=== PATIENT | male | born 1955 | race Caucasian/White ===

== ENCOUNTER 2017-12-29 11:52 | Inpatient (IN) ==
[2017-12-29] MEDS ORDERED: Isovue-370 500 ML INFUS..BTL IV ONE (12:06)
--- NOTE | 2017-12-29 12:09 | Emergency Department Note ---
Disposition Clinical Impression: New onset a-fib, Atrial fibrillation with RVR, Pleural effusion, Elevated troponin, Elevated brain natriuretic peptide (BNP) level, Elevated d-dimer Disposition: Admitted As Inpatient Condition: Good Referrals: RASHID GONZALEZ [Other] [facility]Primary Care Provider[facility] - Time of Disposition: 15:08 SOB HPI - General Chief Complaint: ED Shortness of Breath/Dyspnea Stated Complaint: new afib, ryan Time Seen by Provider: 12/29/17 11:59 Source: EMS Mode of arrival: ambulatory Limitations: no limitations Nursing Notes Reviewed: Yes Vital Signs Reviewed: Yes - History of Present Illness Patient is a 62-year-old male with past medical history of COPD, hypertension, tobacco use, COPD. He presents today from the [facility] due to transfer due to elevated troponin level, new onset A. fib RVR, elevated d- dimer. According to EMS, patient was given 5 mg of Cardizem bolus and aspirin 325. He is also given a breathing treatment today. Patient states that he has been having shortness of breath and lower showed a swelling for the past month, feels different from his usual COPD exacerbations. He has had some increased cough and mild phlegm production but denies any fevers, nausea, vomiting, diarrhea, abdominal pain. Denies any known history of A. fib or CHF. Denies any overt chest discomfort. States that he went to the [facility] urgent care today due to continued shortness of breath despite home treatments of albuterol for COPD. Denies ever feeling any chest discomfort or palpitations. No blood thinners currently. - Related Data Home Medications Medication Instructions Recorded Confirmed Acetaminophen [Tylenol] 650 mg PO Q6HR PRN 12/29/17 12/29/17 Albuterol Neb [Proventil Neb] 2.5 mg IH TID PRN 12/29/17 12/29/17 Albuterol Sulfate [Ventolin Hfa] 2 puff IH Q6H PRN 12/29/17 12/29/17 Cholecalciferol (D-3) [Vitamin D] 1,000 unit PO DAILY 12/29/17 12/29/17 Losartan [Cozaar] 25 mg PO DAILY 12/29/17 12/29/17 Omeprazole [PriLOSEC] 20 mg PO BIDAC 12/29/17 12/29/17 Pravastatin Sodium [Pravachol] 40 mg PO QPM 12/29/17 12/29/17 Ranitidine HCl [Acid Nursing Program Manager] 150 mg PO BID 12/29/17 12/29/17 hydroCHLOROthiazide 25 mg PO DAILY 12/29/17 12/29/17 [Hydrochlorothiazide] Allergies Allergy/AdvReac Type Severity Reaction Status Date / Time No Known Allergies Allergy Verified 12/29/17 13:28 All systems ED: reviewed and negative except as stated. Constitutional: Denies: fever Cardiovascular: Denies: chest pain Respiratory: Reports: cough, dyspnea, sputum production. Denies: wheezes Gastrointestinal: Denies: abdominal pain, nausea, vomiting, diarrhea Genitourinary: Denies: urgency, dysuria Integumentary: Denies: rash Neurological: Denies: headache, weakness, numbness, paresthesias Past Medical History - Past Medical History Attestation: Yes The following information was validated with the patient. Source: patient Medical history: Reports: COPD, hypertension Psychiatric history: Reports: no psych history - Social History Smoking Status: Current every day smoker Alcohol use: Reports: occasionally Drug use: Reports: none Physical Exam - General Limitations: no limitations - Head Head exam: atraumatic, normocephalic, normal inspection - Eye Eye exam: Present: normal appearance, PERRL, EOMI - ENT ENT exam: normal exam, normal oropharynx, mucous membranes moist - Neck Neck exam: Present: normal inspection, full ROM, trachea midline - Chest Chest inspection: Present: normal inspection, symmetric chest wall rise - Respiratory Respiratory exam: Present: wheezes (wheezes throughout all lung harvey) - Cardiovascular Cardiovascular exam: Present: irregular rhythm - Abdominal Exam Abdominal exam: Present: soft, Non-Tender. Absent: tenderness, distention, guarding, rebound, rigidity - Extremities Exam Extremities exam: Present: full ROM, pedal edema (Moderate pitting edema bilaterally, no calf tenderness). Absent: tenderness - Neurological Exam Neurological exam: Present: alert, oriented X3 - Psychiatric Psychiatric exam: Present: normal affect, normal mood - Skin Skin exam: Present: warm, dry, intact, normal color Course Course Narrative: Patient has wheezes throughout, received a breathing treatment prior to arrival. Did not receive steroids. We will give the patient Solu-Medrol. Currently satting mid 90s on room air. Heart rate currently in the 100s to 120s , A. fib. Blood pressure stable. Patient had majority workup performed at the [facility]. His troponin was 2.56, denies any chest discomfort. Did receive aspirin. D-dimer 1.7 which is above [place] cutoff of 0.53. Creatinine was 0.89, GFR was greater than 60. Potassium 3.1. We will replace here with oral potassium. Otherwise, no other major electrolyte abnormality. No chest imaging sent over with patient. We will perform CTA of the chest to assess for PE due to the elevated d-dimer and a tachycardia. We will also assess for pneumonia. We will place patient on Cardizem drip. Patient has no active chest discomfort at this time. EKG shows A. fib, rate 122, no acute ST elevation or depression. 13:39 CTA shows no evidence of any PE. There is evidence of pleural effusion bilaterally, worse in the right, no pneumonia. Findings are suggestive of possible acute CHF. Patient does have an elevated troponin level, no acute ST elevation or depression, no current chest discomfort. We will consult cardiology to discuss case. Patient has already received aspirin. Cardizem drip started. HR 110, BP stable. We will admit to the hospitalist for further care at new onset A. fib RVR. 13:[address] Fisher, relay man, discussed case, presentation, setting of new onset A. fib RVR with no anticoagulation and elevated troponin level. He agreed with starting heparin drip at this time. We will place consult. Patient has no contraindications to anticoagulation at this time, no recent urinary, GI bleeding, no recent head bleed. He does have a history of splenic lac but that was 5 years ago. Chest CTA 12/29/17 12:06 IMPRESSION: 1. No acute pulmonary emboli. 2. Cardiomegaly and bilateral pleural effusions with findings that may represent developing acute congestive heart failure. 3. No lobar pneumonia. D/ / 12/29/2017 13:34:54 Yosi Quevedo MD / Cheyenne Garner Interpreting Provider: Yosi Quevedo MD Vital Signs Temperature 98.3 F 12/29/17 11:54 Pulse Rate 132 12/29/17 11:54 Respiratory Rate 16 12/29/17 11:54 Blood Pressure 136/103 12/29/17 11:54 O2 Sat by Pulse Oximetry 94 12/29/17 11:54 Temperature 98.3 F 12/29/17 11:54 Pulse Rate 126 12/29/17 14:08 Respiratory Rate 20 12/29/17 14:08 Blood Pressure 117/95 12/29/17 14:08 O2 Sat by Pulse Oximetry 97 12/29/17 14:15 Oxygen Delivery Oxygen Delivery Nasal Cannula Shortness of Breath/Dyspnea - [facility] Narrative Medical decision making narrative: Patient has wheezes throughout, received a breathing treatment prior to arrival. Did not receive steroids. We will give the patient Solu-Medrol. Currently satting mid 90s on room air. Heart rate currently in the 100s to 120s , A. fib. Blood pressure stable. Patient had majority workup performed at the [facility]. His troponin was 2.56, denies any chest discomfort. Did receive aspirin. D-dimer 1.7 which is above [place] cutoff of 0.53. Creatinine was 0.89, GFR was greater than 60. Potassium 3.1. We will replace here with oral potassium. Otherwise, no other major electrolyte abnormality. No chest imaging sent over with patient. We will perform CTA of the chest to assess for PE due to the elevated d-dimer and a tachycardia. We will also assess for pneumonia. We will place patient on Cardizem drip. Patient has no active chest discomfort at this time. EKG shows A. fib, rate 122, no acute ST elevation or depression. 13:39 CTA shows no evidence of any PE. There is evidence of pleural effusion bilaterally, worse in the right, no pneumonia. Findings are suggestive of possible acute CHF. Patient does have an elevated troponin level, no acute ST elevation or depression, no current chest discomfort. We will consult cardiology to discuss case. Patient has already received aspirin. Cardizem drip started. HR 110, BP stable. We will admit to the hospitalist for further care at new onset A. fib RVR. 13:[address] Fisher, relay man, discussed case, presentation, setting of new onset A. fib RVR with no anticoagulation and elevated troponin level. He agreed with starting heparin drip at this time. We will place consult. Patient has no contraindications to anticoagulation at this time, no recent urinary, GI bleeding, no recent head bleed. He does have a history of splenic lac but that was 5 years ago. - Medical Records Medical records reviewed: Yes I reviewed the patient's medical records. - Lab Data Lab results reviewed: Yes I reviewed the patient's lab results. Lab Results 12/29/17 Range/Units 14:04 PT 13.6 H (9.4-12.1) Seconds INR 1.2 APTT 26.8 (26.0-36.0) Seconds Heparin Anti-Xa, Unfract 0.04 L (0.30-0.70) IU/mL - Radiology Data Radiology results reviewed: Yes I reviewed the patient's radiology results. - EKG Data EKG attestation: Yes I reviewed and interpreted this EKG. EKG results narrative: 12/29/2017 at 11:55. A. fib. Rate 122. QRS 170. QTC 393. Normal axis. No acute ST elevation or depression. S.B.AJulissa - Lizzy.Dhiraj Situation: Demographics, MOA Background: Presenting Complaint, Relevant PMH, Meds, & Allergies Assessment: Vital Signs, Course and respsone to treatment, Exam Concerns, Patient/Family Expectation, Pertinant Lab Results Recommendation: Barrier(s) to disposition, Recommendation based on pending studies, treatments, or consults S.BMirza Report Given to: Dr. Tanisha Martinez Repor Time: 15:08
[2017-12-29] MEDS ORDERED: methylPREDNISolone 125 MG/2 ML VIAL IVP ONE (12:20)
--- NOTE | 2017-12-29 12:50 | Emergency Department Note ---
Disposition Clinical Impression: New onset a-fib, Atrial fibrillation with RVR, Pleural effusion, Elevated troponin, Elevated brain natriuretic peptide (BNP) level, Elevated d-dimer Disposition: Admitted As Inpatient Condition: Good General Adult HPI - General Chief complaint: ED Shortness of Breath/Dyspnea Stated complaint: new afib, ryan Time Seen by Provider: 12/29/17 11:59 Source: EMS Mode of arrival: ambulatory Limitations: no limitations - History of Present Illness Pain Scale: 0 - Related Data Home Medications Medication Instructions Recorded Confirmed Acetaminophen [Tylenol] 650 mg PO Q6HR PRN 12/29/17 12/29/17 Albuterol Neb [Proventil Neb] 2.5 mg IH TID PRN 12/29/17 12/29/17 Albuterol Sulfate [Ventolin Hfa] 2 puff IH Q6H PRN 12/29/17 12/29/17 Cholecalciferol (D-3) [Vitamin D] 1,000 unit PO DAILY 12/29/17 12/29/17 Losartan [Cozaar] 25 mg PO DAILY 12/29/17 12/29/17 Omeprazole [PriLOSEC] 20 mg PO BIDAC 12/29/17 12/29/17 Pravastatin Sodium [Pravachol] 40 mg PO QPM 12/29/17 12/29/17 Ranitidine HCl [Acid Cloth Reeler] 150 mg PO BID 12/29/17 12/29/17 hydroCHLOROthiazide 25 mg PO DAILY 12/29/17 12/29/17 [Hydrochlorothiazide] Allergies Allergy/AdvReac Type Severity Reaction Status Date / Time No Known Allergies Allergy Verified 12/29/17 13:28 Constitutional: Denies: fever Cardiovascular: Denies: chest pain Respiratory: Reports: cough, dyspnea, sputum production. Denies: wheezes Gastrointestinal: Denies: abdominal pain, nausea, vomiting, diarrhea Genitourinary: Denies: urgency, dysuria Integumentary: Denies: rash Neurological: Denies: headache, weakness, numbness, paresthesias Past Medical History - Past Medical History Medical history: Reports: COPD, hypertension Psychiatric history: Reports: no psych history - Social History Smoking Status: Current every day smoker Alcohol use: Reports: occasionally Drug use: Reports: none Physical Exam - General Limitations: no limitations Course Vital Signs Temperature 98.3 F 12/29/17 11:54 Pulse Rate 132 12/29/17 11:54 Respiratory Rate 16 12/29/17 11:54 Blood Pressure 136/103 12/29/17 11:54 O2 Sat by Pulse Oximetry 94 12/29/17 11:54 Temperature 98.3 F 12/29/17 11:54 Pulse Rate 126 12/29/17 14:08 Respiratory Rate 20 12/29/17 14:08 Blood Pressure 117/95 12/29/17 14:08 O2 Sat by Pulse Oximetry 97 12/29/17 14:15 Oxygen Delivery Oxygen Delivery Nasal Cannula Medical Decision Making - Lab Data Lab Results 12/29/17 Range/Units 14:04 PT 13.6 H (9.4-12.1) Seconds INR 1.2 APTT 26.8 (26.0-36.0) Seconds Heparin Anti-Xa, Unfract 0.04 L (0.30-0.70) IU/mL Critical Care Time Critical Care Time: Yes Total Critical Care Time: 35 Attestation: Critical care performed: Time is exclusive of separately billable procedures. Time includes: direct patient care, patient reassessment, coordination of patient care, interpretation of data (laboratory data, radiology data, and respiratory data), review of patient's medical records, medical consultation and documentation of patient care. Procedures included in critical care time: Procedures excluded from critical care time: Attestation Statement - Attestation Attestation: I examined this patient and my medical decision-making was reviewed with the Resident Physician. I agree with the documented findings, disposition and treatment plan as described except to the extent set forth below. Patient presents to the ED as a transfer from the [facility]. Patient presented to the emergency department with a chief complaint of leg swelling and shortness of breath. He was found to be in new onset A. fib. He had an elevated troponin suicidal for further evaluation. On examination he is laying in bed sleeping but easily arousable. Lungs with expiratory wheezing. He has bilateral pitting edema. His heart tachycardia and irregularly irregular. Plan. Rate control. CTA chest is he had an elevated d-dimer. EKG is A. fib with RVR 122. He has some anterolateral T-wave inversions. There is no old for comparison. Cardiology has been consult. Heparin drip started. Tolerating Cardizem at this time. Admitted to medicine.
[2017-12-29] MEDS ORDERED: *HR* Heparin 5,000 UNIT/ML VIAL IVP ONE (13:50)
[2017-12-29] MEDS ORDERED: *HR* Heparin 5,000 UNIT/ML VIAL IVP PRN ×2 (13:50)
[2017-12-29] MEDS ORDERED: Heparin 25,000 UNIT/500 ML D5W 25,000 UNIT/500 ML BAG IVC SCH (14:00)
[2017-12-29 14:26] LABS: Heparin anti-factor XA UFH 0.04 IU/mL (0.30-0.70); INR 1.2; Prothrombin Time 13.6 Seconds (9.4-12.1)
[2017-12-29 14:29] LABS: Activated Partial Thrombo Time 26.8 Seconds (26.0-36.0)
[2017-12-29] MEDS ORDERED: 0.9 % Sodium Chloride 500 ML IVC ONE (15:05)
[2017-12-29] MEDS ORDERED: Levalbuterol Neb 1.25 MG/3 ML IH PRN (15:29)
[2017-12-29] MEDS ORDERED: 0.9 % Sodium Chloride 1,000 ML IVC SCH (15:30)
--- NOTE | 2017-12-29 16:13 | Internal Med History&Physical ---
Date of Encounter: 12/29/17 Time of Encounter: 16:08 Internal Medicine - H&P: HPI Chief complaint: SOB History of present illness: Mr. Arroyo is a 62 year old male with history of COPD not on home oxygen presented to the ED from the [facility] with complaint of shortness of breath. As patient he went to the [facility] today complaining of bilateral leg swelling and shortness of breath especially on ambulation. He had ran out of his inhalers and has not used them for 2 days so he did not get refill on his medications. While in the [place] swelling of the lower extremities was noticed and he was found to be tachycardic. in the ED and admission labs were done which showed troponin of 2.56 and elevated d-dimer of 1.7 which is above the cutoff at the [facility] (0.53). He was also found to be hypokalemic at 3.1. So he was transferred to [facility] ED for further workup. While in the ED the labs [place] was reviewed and CT angiogram of the chest was ordered to rule out pulmonary embolism (results below). EKG in the ED showed A. fib with RVR rate of [address] T changes. CTA results showed bilateral pleural effusion. Cardiology consulted by the ED physician. Dr. Fisher recommended heparin drip and aspirin 325 mg which she was given originally at the [place]. Patient reports that his bilateral leg swelling started about a month ago and progressively worsened. He denies prolonged immobilization, lower extremity swelling proves with elevation. No pain associated with the swelling he denies any calf tenderness. His leg swelling is also associated with worsening shortness of breath however he reports that his shortness of breath is aggravated only on ambulation. Denies orthopnea or PND. He denies fever, chills, N/V/D, head ache, vision changes, hematemeisis, hematochezia, hemoptysis, melena, blood per rectum, falls. he reports that he is independent with his ADLs. Past Med Surg Social Fam HX - Past Medical History Medical history: COPD, hypertension Psychiatric history: no psych history - Social History Smoking Status: Current every day smoker Alcohol use: occasionally Drug use: none Internal Medicine - H&P: Meds Acetaminophen [Tylenol] 650 mg PO Q6HR PRN 12/29/17 [History] Albuterol Neb [Proventil Neb] 2.5 mg IH TID PRN 12/29/17 [History] Albuterol Sulfate [Ventolin Hfa] 2 puff IH Q6H PRN 12/29/17 [History] Cholecalciferol (D-3) [Vitamin D] 1,000 unit PO DAILY 12/29/17 [History] Losartan [Cozaar] 25 mg PO DAILY 12/29/17 [History] Omeprazole [PriLOSEC] 20 mg PO BIDAC 12/29/17 [History] Pravastatin Sodium [Pravachol] 40 mg PO QPM 12/29/17 [History] Ranitidine HCl [Acid Microwave Technician] 150 mg PO BID 12/29/17 [History] hydroCHLOROthiazide [Hydrochlorothiazide] 25 mg PO DAILY 12/29/17 [History] 3 Allergy/AdvReac Type Severity Reaction Status Date / Time No Known Allergies Allergy Verified 12/29/17 13:28 All Systems PM: review of systems was performed and is negative for pertinent findings except as documented above in the HPI. - Constitutional Vitals: Temp Pulse Resp BP Pulse Ox 98.3 F 126 20 92/77 93 12/29/17 11:54 12/29/17 15:20 12/29/17 15:20 12/29/17 15:20 12/29/17 15:20 - Other Additional findings: General: Patient is alert, oriented, no acute distress, Head: atraumatic, normocephalic, Eye: normal appearance, PERRL, no scleral icterus, no conjunctival injection, ENT: mucous membranes moist, normal external ear exam, poor dentition Neck: normal inspection, trachea midline, full ROM, +JVD Chest: normal inspection, symmetric chest rise Respiratory: speaks in full sentences, no accessory muscle use, diffuse crackles in the posterior lung feilds, diffuse wheezing in the posterior lung harvey. Cardiovascular: irregularly irregular . s1 and s2 No clicks, rubs, gallops, or murmors. Abdomen: Bowel sounds present normoactive x-4 quadrants. Abdomen is soft, nondistended. Epigastric tenderness. No guarding or rebound. No organomegaly noted, obese musculoskeletal: Spontaneously moving all extremities. +2 edema of the lower extremities is no calf tenderness Skin: warm, dry, intact. Neuro: Alert and oriented x4. Sensation light touch intact. Cranial nerves 2- 12 is intact. Not aphasic, Psych: Patient's affect is normal Internal Med - H&P Results - Labs CBC & Chem 7: 12/29/17 16:22 12/29/17 16:22 - EKG Data -: EKG Interpreted by Myself (Afib with RVR, incomplete RBBB, ) - Assessment and plan (1) Acute systolic CHF (congestive heart failure) Current Visit: Yes Status: Acute Assessment and plan: labs from [place] showed elevated troponin 2.5 and BNP as per ED physician along with D-Dimer CTA done in the ED - 1. No acute pulmonary emboli. 2. Cardiomegaly and bilateral pleural effusions with findings that may represent developing acute congestive heart failure. 3. No lobar pneumonia. will get TTE STAT will give him one dose of lasix 40 mg IVP- he is overloaded - will monitor BP closely strict intake and out put daily weight currently on cardizem drip- has wheezing - will refrain from using BB fluid restricted diet <1L DVT study of the lower extremities (2) Atrial fibrillation with RVR Current Visit: Yes Status: Acute Assessment and plan: CTA rule out PE, ? secondary to acute CHF vs COPD exacerbation on cardizem drip - rate in the low 100s first detected Afib cardiology was consulted in the ED now on heparin drip TSH Echocardiogram cardiology on board (3) Elevated troponin Current Visit: Yes Status: Acute Assessment and plan: most likely secondary to demand vs supply mismatch ( he has Afib with RVR and acute CHF) will follow serial troponins and ekgs Q6H was loaded with ASA at [place] on heparin drip cardiology on board recommendations followed in the ED TTE on cardizem drip - will refrain BB for now as he is actively wheezing. A1c, lipid panel in the AM (4) COPD exacerbation Current Visit: Yes Status: Acute Assessment and plan: actively wheezing on exam, has ran out of his inhalers received solumedrol in the ED will continue him on 40 mg Q6H will give him Duo-neb Q4H will start him on levaquin urine antigens sputum cx will send blood cx ABG stat oxygen via nasal cannula kep stats >92% (5) HTN (hypertension) Current Visit: Yes Status: Acute Assessment and plan: currently border line hypotensive will hold off of anti hypertensives - recieved onse dose of lasix 40 mg IVP once as he is fluid overloaded vitals as per protocol Qualifiers: Hypertension type: essential hypertension Qualified Code(s): I10 - Essential (primary) hypertension (6) DVT prophylaxis Current Visit: Yes Status: Acute Assessment and plan: on heparin drip - Time Spent With Patient Total time spent is greater than 50% in coordination of care (as documented) at patient's floor/unit and/or counseling patient:
[2017-12-29] MEDS ORDERED: Furosemide 40 MG/4 ML VIAL IVP ONE (16:42)
[2017-12-29] MEDS: Ipratropium Neb 0.5 MG NEBULIZER IH SCH ×2 (16:51→22:13)
[2017-12-29] MEDS: Levalbuterol Neb 1.25 MG/3 ML IH SCH ×2 (16:51→22:13)
[2017-12-29 16:52] LABS: Basophils % 0.1 %; Immature Granulocytes % 0.9 % (0-4); Lymphocytes # 0.5 K/mcL (0.6-4.6); Lymphocytes % 4.5 %; Mean Corpuscular HGB Conc 32.6 g/dL (31.6-35.5); Mean Corpuscular Hemoglobin 31.1 pg (28.0-33.3); Mean Corpuscular Volume 95.6 fL (83.0-100.0); Mean Platelet Volume 10.1 fL (9.4-12.4); Monocytes # 0.2 K/mcL (0.0-1.3); Monocytes % 2.2 %; Neutrophils # 9.4 K/mcL (1.6-8.9); Nucleated Red Blood Cells 0.2 /100 WBC (0); Platelet Count 409 K/mcL (140-400); Red Cell Distribution Width 14.6 % (11.5-14.5); Segmented Neutrophils % 92.3 %
[2017-12-29 17:07] LABS: BUN/Creatinine Ratio 25 (6-26); Blood Urea Nitrogen 23 mg/dL (8-23); Calcium 8.9 mg/dL (8.6-10.3); Carbon Dioxide 23 mEq/L (23-29); Chloride 100 mEq/L (98-107); Glucose 274 mg/dL (70-105); Magnesium 1.8 mg/dL (1.6-2.6); Osmolality,Calculated 295 (280-300); Phosphorous 3.6 mg/dL (2.7-4.5); Potassium 3.7 mEq/L (3.5-5.1); Sodium 136 mEq/L (136-145); eGFR For Non-African Americans > 60 (> 60)
[2017-12-29 17:20] LABS: Thyroid Stimulating Hormone 0.465 mcIU/mL (0.340-5.600)
[2017-12-29 17:20] LABS: Bilirubin,Urine Negative (Negative); Blood,Urine Negative (Negative); Clarity,Urine Clear (Clear); Color,Urine Yellow (Yellow); Glucose,Urine (UA) 500 mg/dL (Normal); Ketones,Urine Negative (Negative); Leukocyte Esterase,Urine Negative (Negative); Nitrite,Urine Negative (Negative); Protein,Urine Negative (Neg-Trace); Urobilinogen,Urine Normal (Normal)
[2017-12-29 17:24] LABS: Troponin I 1.16 ng/mL (< 0.04)
[2017-12-29] MEDS: Famotidine 20 MG TABLET PO SCH (18:02)
[2017-12-29] MEDS: Levofloxacin 500 MG/100 ML 500 MG/100 ML BAG IVPB SCH (18:02)
[2017-12-29] MEDS: Melatonin 3 MG TABLET PO PRN (23:09)
[2017-12-29] MEDS: MethylPREDNISolone 40 MG/ML VIAL IVP SCH (23:09)
[2017-12-30] MEDS: Acetaminophen 325 MG TABLET PO PRN ×2 (00:19→17:01)
[2017-12-30] MEDS: Ipratropium Neb 0.5 MG NEBULIZER IH SCH ×4 (03:39→21:56)
[2017-12-30] MEDS: Levalbuterol Neb 1.25 MG/3 ML IH SCH ×4 (03:39→21:58)
[2017-12-30 03:59] LABS: Hematocrit 41.8 % (37.5-50.1); Mean Corpuscular HGB Conc 33.5 g/dL (31.6-35.5); Mean Corpuscular Hemoglobin 31.3 pg (28.0-33.3); Mean Corpuscular Volume 93.5 fL (83.0-100.0); Mean Platelet Volume 10.2 fL (9.4-12.4); Platelet Count 368 K/mcL (140-400); Red Blood Count 4.47 M/mcL (4.19-5.50)
[2017-12-30 04:10] LABS: BUN/Creatinine Ratio 26 (6-26); Blood Urea Nitrogen 22 mg/dL (8-23); Calcium 8.6 mg/dL (8.6-10.3); Carbon Dioxide 27 mEq/L (23-29); Chloride 100 mEq/L (98-107); Chol/HDL Ratio 4.3 (0-4.9); Cholesterol 147 mg/dL (< 200); Glucose 189 mg/dL (70-105); HDL Cholesterol 34 mg/dL (40-59); LDL Cholesterol,Calculated 100 mg/dL (0-99); Osmolality,Calculated 292 (280-300); Potassium 3.2 mEq/L (3.5-5.1); Sodium 137 mEq/L (136-145); Triglycerides 63 mg/dL (< 150); eGFR For Non-African Americans > 60 (> 60)
[2017-12-30] MEDS: Cholecalciferol (D-3) 1,000 UNIT TABLET PO SCH (08:17)
[2017-12-30] MEDS: Famotidine 20 MG TABLET PO SCH ×2 (08:17→17:06)
[2017-12-30] MEDS: MethylPREDNISolone 40 MG/ML VIAL IVP SCH ×2 (08:17→16:52)
[2017-12-30 08:32] LABS: Estimated Average Glucose 148 mg/dl; Hemoglobin A1C 6.8 %
--- NOTE | 2017-12-30 09:06 | Cardiology Consult Note ---
Date of Encounter: 12/30/17 Time of Encounter: 08:30 Assessment and Plan (1) NSTEMI (non-ST elevated myocardial infarction) Current Visit: Yes Status: Acute Peak troponin 2.56 (at [facility]) with downward trend. Dynamic ECG changes noted, remains chest pain free. No prior CV records available, patient denies prior ischemic evaluation. Continue heparin gtt, start asa. Will increase statin, start BB. Echo pending. Cardiac rehab consult. Recommend C with possible PCI; alternatives, risks, and benefits discussed, he is agreeable to proceed. (2) CHF (congestive heart failure) Current Visit: Yes Status: Acute Patient presents with CHF symptoms--etiology and chronicity unclear. No prior hx. Patient did report normal echo in April 2017. Worsening symptoms over the past 2-3 weeks. BNP 1453. Volume overload upon exam. Chest CTA: negative for acute PE, cardiomegaly, bilateral pleural effusions may represent developing acute CHF. Echo pending, suspect LVEF may be reduced. Will start Toprol XL; consider addition of ACEi upon discharge if BP will tolerate. Start IV lasix, 40 mg BID. Cumulative I&O: -1369 mL (after 1 dose of IV lasix). Strict I&O's, daily weights, Na/fluid restricted diet. Qualifiers: Heart failure type: unspecified Heart failure chronicity: acute Qualified Code(s): I50.9 - Heart failure, unspecified (3) Atrial fibrillation with RVR Current Visit: Yes Status: Acute New diagnosis of atrial fibrillation with RVR; chronicity unclear. Patient reports ongoing symptoms for the past 3 weeks. ECG upon arrival to ED shows afib with RVR with rate 122 BPM, started on IV cardizem gtt. 12 hour tele: avg HR=92. TSH normal. Currently on IV cardizem gtt. Due to concern of CHF, will start BB over CCB for now. Presently, CHA2Ds Vasc= 1 (HTN). Echo pending, will require further cardiac testing. Suspect may need half-way AC. Continue heparin gtt for now. Discussion w patient/family: The assessment and plan as outlined above was discussed with the patient and/or family members who expressed understanding and agreement. All questions were answered. Thank you for involving us in the care of your patient. Please call with any questions. The patient will be discussed and reviewed with Dr. Fisher; changes to be made accordingly. History of Present Illness Consult date: 12/30/17 Requesting physician: Tanisha Garcia Consult reason: Afib with RVR; elevated troponin Chief complaint: Shortness of breath; LE edema History of present illness: Mr. Arroyo is a 62 year old male with PMHx significant of GERD, COPD who presented as a transfer from the [facility] due to concern of NSTEMI--troponin at the [facility] was 2.56. In addition, proBNP was 6289. He was found to be in atrial fibrillation with RVR. Mr. Arroyo reports 2-3 week history of worsening bilateral lower extremity edema associated with increase in abdominal girth and shortness of breath. Also reports PND/orthopnea and palpitations. He reports he tries to stay active and push-mows several lawns each week, recently, he has had to frequently sit down and rest due to shortness of breath with associated chest heaviness. Upon exam, he is chest pain free. He reports his shortness of breath and edema have significantly improved overnight after given IV lasix. Orthopnea has resolved. He reports ultrasound of his heart in April of last year, was told "heart was strong." Past Med Surg Social Fam HX - Past Medical History Attestation: Yes The following information was validated with the patient. Source: patient Medical history: COPD, GERD, hypertension Additional medical history: reports splenic laceration d/t trauma 5 years ago. Psychiatric history: no psych history - Social History Smoking Status: Current every day smoker Alcohol use: occasionally Drug use: none Medications and Allergies Acetaminophen [Tylenol] 650 mg PO Q6HR PRN 12/29/17 [History] Albuterol Neb [Proventil Neb] 2.5 mg IH TID PRN 12/29/17 [History] Albuterol Sulfate [Ventolin Hfa] 2 puff IH Q6H PRN 12/29/17 [History] Cholecalciferol (D-3) [Vitamin D] 1,000 unit PO DAILY 12/29/17 [History] Losartan [Cozaar] 25 mg PO DAILY 12/29/17 [History] Omeprazole [PriLOSEC] 20 mg PO BIDAC 12/29/17 [History] Pravastatin Sodium [Pravachol] 40 mg PO QPM 12/29/17 [History] Ranitidine HCl [Acid Loader Engineer] 150 mg PO BID 12/29/17 [History] hydroCHLOROthiazide [Hydrochlorothiazide] 25 mg PO DAILY 12/29/17 [History] 3 Allergy/AdvReac Type Severity Reaction Status Date / Time No Known Allergies Allergy Verified 12/29/17 13:28 All Systems Review: The remainder of the systems were reviewed and are negative - Cardiovascular Cardiovascular: as per HPI Physical Examination Vital Signs, Last 4 Hours Temp Pulse Resp BP Pulse Ox 12/30/17 06:58 97.8 F 94 18 115/68 90 12/30/17 06:20 90 124/79 12/30/17 05:20 81 119/79 General: Conversant HEENT: Atraumatic, Normocephaly Cardiac: Other (irregularly irregular) Lungs: Other (coarse breath sounds throughout) Neuro: Alert and responsive Abdomen: Soft, Other (distended) Skin: No rashes noted on visualized skin Musculoskeletal: No Chest Wall Tenderness Extremities: Other (+2 edema to knees) Results 12/30/17 03:31 12/30/17 03:31 Lab Results 12/29/17 12/29/17 12/29/17 16:22 16:22 16:22 WBC 10.2 Hgb 14.0 Hct 43.0 Plt Count 409 H Sodium 136 Potassium 3.7 Chloride 100 Carbon Dioxide 23 BUN 23 Creatinine 0.91 Glucose 274 H Calcium 8.9 Magnesium 1.8 Troponin I 1.16 H* B-Natriuretic Peptide 1453 H TSH 0.465 12/29/17 12/30/17 12/30/17 21:12 03:31 03:31 WBC 10.8 Hgb 14.0 Hct 41.8 Plt Count 368 Sodium Potassium Chloride Carbon Dioxide BUN Creatinine Glucose Calcium Magnesium Troponin I 0.95 H* 0.84 H* B-Natriuretic Peptide TSH 12/30/17 03:31 WBC Hgb Hct Plt Count Sodium 137 Potassium 3.2 L Chloride 100 Carbon Dioxide 27 BUN 22 Creatinine 0.85 Glucose 189 H Calcium 8.6 Magnesium Troponin I B-Natriuretic Peptide TSH Active Medications Acetaminophen (Tylenol) 650 mg PO Q6HR PRN PRN Reason: Pain Stop: 06/30/18 15:29 Last Admin: 12/30/17 00:19 Dose: 650 mg Atorvastatin Calcium (Lipitor) 10 mg PO QPM ARIELLE Stop: 06/30/18 18:01 Last Admin: 12/29/17 17:13 Dose: 10 mg Famotidine (Pepcid) 20 mg PO BIDAC ARIELLE Stop: 06/30/18 16:31 Last Admin: 12/30/17 08:17 Dose: 20 mg Heparin Sodium (Porcine) (Heparin) 4,000 unit IVP Q6HR PRN PRN Reason: SEE COMMENTS Stop: 06/30/18 13:51 Heparin Sodium (Porcine) (Heparin) 2,000 unit IVP Q6H PRN PRN Reason: SEE COMMENTS Stop: 06/30/18 13:51 Last Admin: 12/29/17 22:20 Dose: 2,000 unit Diltiazem HCl 50 mg/ Sodium (Chloride) 50 mls @ 5 mls/hr IVC .Q10H ARIELLE; 5 MG/HR PRN Reason: Protocol Stop: 06/30/18 12:16 Last Infusion: 12/29/17 23:11 Dose: 2.5 mg/hr, 2.5 mls/hr Heparin Sodium/Dextrose (Heparin 25,000 Unit/500 Ml D5w) 25,000 unit in 500 mls @ 19.958 mls/hr IVC .Q24H ARIELLE; 10 UNIT/KG/HR PRN Reason: Protocol Stop: 06/30/18 14:01 Last Titration: 12/30/17 04:33 Dose: 12 unit/kg/hr, 23.95 mls/hr Levofloxacin/Dextrose (Levaquin Premix 500mg/100ml) 500 mg in 100 mls @ 100 mls /hr IVPB QPM ARIELLE PRN Reason: Protocol Stop: 06/30/18 17:01 Last Infusion: 12/29/17 23:11 Dose: Infused Ipratropium [place] (Atrovent Neb) 0.5 mg IH [id number] ARIELLE Stop: 06/30/18 16:46 Last Admin: 12/30/17 03:39 Dose: 0.5 mg Levalbuterol HCl (Xopenex) 1.25 mg IH [id number] ARIELLE Stop: 06/30/18 16:37 Last Admin: 12/30/17 03:39 Dose: 1.25 mg Melatonin (Melatonin) 3 mg PO HS PRN PRN Reason: Insomnia Stop: 06/30/18 22:44 Last Admin: 12/29/17 23:09 Dose: 3 mg Methylprednisolone (Solu-Medrol) 40 mg IVP Q8HR ARIELLE Stop: 07/01/18 00:01 Last Admin: 12/30/17 08:17 Dose: 40 mg Omeprazole (Prilosec) 20 mg PO BIDAC ARIELLE PRN Reason: Protocol Stop: 06/30/18 16:31 Last Admin: 12/30/17 08:17 Dose: 20 mg Vitamin D (Vitamin D) 1,000 unit PO DAILY ARIELLE Stop: 07/01/18 09:01 Last Admin: 12/30/17 08:17 Dose: 1,000 unit - Imaging and Cardiology Echo: pending Other Results: 12 hour tele: avg HR=93 afib. - EKG Interpretation EKG results cardiology: personally reviewed Consult Discharge Plan - Plan Referrals: Adrienne Agrawal CNP [Partnered Physician] - (Office will call patient at home with follow appointment) [place],PCP [Primary Care Provider] - 01/06/18 2:30 pm (this is with the cary team at the [facility])
[2017-12-30] MEDS: Aspirin Enteric Coated 81 MG Tablet PO SCH (11:14)
[2017-12-30] MEDS: Metoprolol XL (24 HR) Succ 25 MG TAB.ER.24H PO SCH (11:14)
[2017-12-30] MEDS: Furosemide 40 MG/4 ML VIAL IVP SCH ×2 (11:14→23:55)
[2017-12-30] MEDS ORDERED: 0.9 % Sodium Chloride 1,000 ML ONE ×2 (13:06→13:18)
[2017-12-30] MEDS ORDERED: Heparin 1,000 UNITS/500 mL 500 ML ONE (13:06)
[2017-12-30] MEDS ORDERED: *HR* Heparin 10,000 UNIT/10 ML VIAL ONE (13:06)
[2017-12-30] MEDS ORDERED: ISOVUE-370 200 ML INFUS..BTL IV ONE ×2 (13:06→14:42)
[2017-12-30] MEDS ORDERED: Nitroglycerin 1,000 MCG/10 ML VIAL IV ONE (13:07)
--- NOTE | 2017-12-30 13:34 | Pre-Sedation Evaluation ---
Pre-sedation evaluation - Pre-sedation checklist Date of procedure: 12/30/17 Procedure: LEFT HEART CATH Recent Vitals: Last Vital Signs Temp 98.2 F 12/30/17 11:03 Pulse 90 12/30/17 12:49 Resp 18 12/30/17 11:21 BP 114/94 12/30/17 12:49 Pulse Ox 93 12/30/17 12:49 H&P (including ROS) documented in medical record: Yes Previous reaction to sedatives/anesthetics: No Dietary Status: NPO 6 hours prior to procedure Airway Assessment: Patient can open mouth completely, TMJ function normal, Micrognathia (under-bite, receding chin) absent, Neck with adequate range of motion Dentition: dentures removed Possible difficult airway: No ASA Classification *see protocol: CLASS II-Mild systemic disease Cardiac Registry (Cardio Only) - Functional Capacity - Clincal Frailty Scale Clinical Frailty Scale: Vulnerable
--- NOTE | 2017-12-30 13:38 | Internal Med Progress Note ---
Hospitalist Progress Note - Encounter Date of Encounter: 12/30/17 Time of Encounter: 13:35 - Subjective Interval History: Still short of breath but better. Denied chest pain, fever, chills, nausea, vomiting, headache, dizziness, abdominal pain urinary bowel complaint. Review the lab and business sales consultant note. - Exam Vitals: Temp Pulse Resp BP Pulse Ox 98.2 F 90 18 114/94 93 12/30/17 11:03 12/30/17 12:49 12/30/17 11:21 12/30/17 12:49 12/30/17 12:49 Exam: General appearance: No acute distress, A&O X 3 Head exam: Atraumatic Eye exam: EOMI, PERRLA ENT exam: Moist oral mucosa Neck nontender, supple Respiratory exam: Bibasilar crepitation Cardiovascular exam: Regular rate and rhythm, no systolic murmur Abdominal exam: Soft, nontender, nondistended, positive bowel sounds Extremities exam: No calf tenderness, +2 /+3 pedal edema Present: Skin- warm, dry, intact Neurological exam: Alert, awake, oriented 3, CN II-XII intact, no focal deficits. No facial droop. Normal speech. Normal gait. - Assessment and Plan (1) NSTEMI (non-ST elevated myocardial infarction) Current Visit: Yes Status: Acute Assessment and Plan: Elevated troponin with no ST elevation in EKG. Continue heparin drip. Correction Officer Supervisor's evaluated the patient and recommended for heart catheter today afternoon. Echo report is awaited. Continue aspirin beta aye and a statin nitroglycerin and oxygen. Lipid panel and A1c awaited (2) Atrial fibrillation with RVR Current Visit: Yes Status: Acute Assessment and Plan: No history of A. fib in the past. CTA rule out PE. secondary to acute CHF versus CO. Cardizem drip was restarted in the ER now weaning down. Correction Officer Supervisor's on board. Echocardiogram pending. Continue heparin drip. (3) Acute systolic CHF (congestive heart failure) Current Visit: Yes Status: Acute Assessment and Plan: Clinically patient had crepitation in the lung, pedal edema. Echocardiogram EF 30-35%, mildly dilated LV and RV and mildly hypokinetic, mild to moderate MR, moderate TR, mild pulmonary hypertension, IVC dilated, a small pericardial effusion. IV Lasix 40 mg twice a day, strict I&O's, daily weight, fluid restriction less 1 L per day. (4) COPD exacerbation Current Visit: Yes Status: Acute Assessment and Plan: History of COPD. Continue IV Solu-Medrol, DuoNeb, Levaquin. Will wait for culture report. Oxygen supplementation. (5) HTN (hypertension) Current Visit: Yes Status: Acute Assessment and Plan: Initially borderline hypotensive but now low normal blood pressure. Close monitoring of blood pressure on current medication. (6) Electrolyte imbalance Current Visit: Yes Status: Acute Assessment and Plan: Low potassium. Replacement and monitor. (7) DVT prophylaxis Current Visit: Yes Status: Acute Assessment and Plan: on heparin drip - Time Spent with Patient Total time spent is greater than 50% in coordination of care (as documented) at patient's floor/unit and/or counseling patient: 25 - 35 minutes Internal Medicine: Result - Labs CBC & Chem 7: 12/30/17 03:31 12/30/17 03:31 - ABG Interpretation ABG results: PT/INR, D-dimer PT 13.6 Seconds (9.4-12.1) H 12/29/17 14:04 Consult Discharge Plan - Plan Referrals: Adrienne Agrawal, SUPERVISOR FILM PROCESSING [Partnered Physician] - (Office will call patient at home with follow appointment) [place],PCP [Primary Care Provider] - 01/06/18 2:30 pm (this is with the cary team at the [facility]) (5) HTN (hypertension) Qualifiers: Hypertension type: essential hypertension Qualified Code(s): I10 - Essential (primary) hypertension
[2017-12-30] MEDS ORDERED: *HR* Midazolam HCl 2 MG/2 ML VIAL ONE ×2 (14:13→14:28)
[2017-12-30] MEDS ORDERED: *HR* FentaNYL (PF) 100 MCG/2 ML VIAL ONE (14:13)
[2017-12-30] MEDS ORDERED: *HR* Bivalirudin 250 MG VIAL IVC ONE ×2 (14:39→14:51)
[2017-12-30] MEDS ORDERED: *HR* Ticagrelor 90 MG TABLET ONE (14:51)
--- NOTE | 2017-12-30 15:13 | Invasive Diagnostic Lab Proc ---
Name: Vadim Arroyo Date of Study: 12/30/2017 Date: 1955 Ht: 72.0in Medical Record#: [id number] Age: 62 Wt: 220.02lb Gender: Male BSA: 2.22 Order #: [id number] BMI: 29.8 Physicians Procedure Physician: Selina Rivera MD, [facility] Referring MD: Referring MD: Staff Name Position Time In Mike Barton RN Restaurant Floor Manager 01:11 PM Shashi Scott RT (R) Monitor 01:12 PM Diamond Scott RT (R) Scrub 01:12 PM Indications Indication Non-Stemi Procedures Performed Procedure L HRT ARTERY/VENTRICLE ANGIO PRQ CARD LUCY STENT W/ANGIO 1 VSL Pre-Procedure Checklist Informed consent is complete signed and on chart. H&P is on chart. ID band is on and ID verified with patient. Patient NPO for procedure The procedure was described for the patient and questions were answered. Blood Pressure: 121/87 ECG is on chart. Rhythm: Atrial Fibrillation Plan of Care Patient will tolerate the procedure without complications. Adequate level of comfort will be maintained. Hemodynamics will remain stable Patient will recover from procedure without complications. Respiratory function will be maintained. Cardiac rhythm will remain stable. Patient temperature will be maintained. Patient and/or family have verbalized understanding of the procedure. Patient Education Chief Complaint/Reason for Test: Cardiac Cath Developmental Category: Adult (18-64 years) Developmentally Appropriate for Age: Yes Learning Barriers: None Education Needs: Procedure Education Method: Verbal Information Taught: Cardiac Cath Educational Evaluation: Able to repeat information Intravenous Access Time IV Size Location DC'd Fluid/Drip Rate Units RN 01:59 PM 20g 1 1/4" Patent On Arrival Lt Hand Cardizem 2.5 ml/hr Mike Barton RN 01:59 PM 20g 1 1/4" Patent On Arrival Rt Antecubital 0.9NaCl 25 ml/hr Mike Barton RN Allergies No Known Allergies Vital Signs Time BP (mmHg) HR (bpm) O2 Sat. RR (bpm) LOC 01:59 PM 121 / 87 102 93 % 18 5 = Fully awake and oriented or at pre-proc level 01:58 PM / % 5 = Fully awake and oriented or at pre-proc level 02:14 PM / % 4 = Oriented but drowsy 02:29 PM / % 4 = Oriented but drowsy 02:44 PM / % 5 = Fully awake and oriented or at pre-proc level 02:12 PM 115 / 79 117 94 % 14 02:30 PM 99 / 68 130 92 % 35 02:34 PM 101 / 84 99 90 % 30 02:39 PM 112 / 78 108 91 % 19 02:45 PM 118 / 76 72 93 % 20 02:50 PM 107 / 77 84 92 % 21 02:55 PM 116 / 85 87 94 % 38 Procedural Medications Time Medication Dose Units Method Given By 02:14 PM Oxygen 2 L/min nasal cannula Mike Barton RN 02:15 PM Versed 2 mg Intravenous Mike Barton RN 02:15 PM Fentanyl 50 mcg Intravenous Mike Barton RN 02:23 PM Lidocaine 2% 20 ml Subcutaneous Selina Rivera MD, FACC 02:24 PM Benadryl 25 mg Intravenous Mike Barton RN 02:25 PM Oxygen 4 L/min nasal cannula Mike Barton RN 02:27 PM Versed 1 mg Intravenous Mike Barton RN 02:27 PM Fentanyl 25 mcg Intravenous Mike Barton RN 02:35 PM Angiomax 0.75mg/kg bolus: 15 ml Intravenous Mike Barton RN 02:36 PM Angiomax 1.75mg/kg/hr: 35 ml/hr Intravenous Mike Barton RN 02:48 PM Nitroglycerin 200 mcg Intracoronary Selina Rivera MD, FACC 02:53 PM Brilinta 180 mg Orally Mike Barton RN ASA Classification: CLASS II- Mild systemic disease (i.e. well-controlled diabetes, hypertension, asthma, cigarette smoking) Sasha Score Preprocedure Postprocedure Activity 2- Moves 4 extremities sustained head lift Activity 2- Moves 4 extremities sustained head lift Circulation 2- SBP +/= 20 points of pre-anesthetic level Circulation 2- SBP +/= 20 points of pre-anesthetic level Consciousness 2- Awake and alert oriented x 3 Consciousness 2- Awake and alert oriented x 3 O2 Saturation 2- Able to maintain O2 satruation of 92% on room air O2 Saturation 2- Able to maintain O2 satruation of 92% on room air Respiratory 2- Able to deep breathe and cough well Respiratory 2- Able to deep breathe and cough well Total Score 10 Total Score 10 Contrast Agent: Isovue Diagnostic Contrast: 158 ml Total Contrast: 158 ml Fluoro Dose: 6138 mGy Procedure Log Time Note Enter By 01:11 PM Patient charges- Angio tray pack, Navilyst 3mm J, Pulse Oximetry and ACIST tubing and transducer 01:12 PM Mike Barton RN Position: Restaurant Floor Manager Time in: 13:11 01:12 PM Shashi Scott RT (R) Position: Monitor Time in: 13:12 01:12 PM Diamond Scott RT (R) Position: Scrub Time in: 13:12 01:57 PM Clinical Presentation: Non-STEMI [email or web address] 01:58 PM CathStat 01:58 PM Pt arrived to laboratory tester 2 at 13:58 [email or web address] :58 PM Case Delayed No 2 :58 PM Time: 13:58 Patient comfortable and pain free: Yes :58 PM Time: 13:58LOC: 5 = Fully awake and oriented or at pre-proc level [email or web address] 02:08 PM Physician arrived 14:08 2 02:08 PM Meet and greet completed 02:08 PM Sign in performed according to hospital policy. 02:08 PM Procedure start 14:08 [email or web address] 02:09 PM ASA Class CLASS II- Mild systemic disease (i.e. well-controlled diabetes, hypertension, asthma, cigarette smoking) [email or web address] 02:12 PM NIBP STAT measurement started. 02:12 PM ZP=798 bpm, IWMB=059/79 mmhg, SpO2=94.0 %, Resp=14 B/min 02:13 PM Recorded ECG: BD=444 Condition=Condition 1 02:14 PM Time: 13:58LOC: 5 = Fully awake and oriented or at pre-proc level 02:14 PM Time: 13:58 Patient comfortable and pain free: Yes 02:14 PM Time: 14:14 Oxygen on at 2 L/min per nasal cannula by Mike Barton RN 02:14 PM Hair removed from procedure site in procedure lab using clippers. Bilateral groin prepped with Chloraprep by Diamond Scott RT (R), then patient was draped. Skin intact. 02:15 PM Time: 14:15 Versed 2 mg Intravenous Given by Mike Barton RN 02:15 PM Time: 14:15 Fentanyl 50 mcg Intravenous Given by Mike Barton RN 02:17 PM Pressure channel 1 zeroed. 02:23 PM Time out performed according to hospital policy 02:23 PM What is the NYHA Class? Class 3 02:24 PM Time: 14:23 20 ml Lidocaine 2% to right groin Subcutaneous Given by Selina Rivera MD, [facility] 02:24 PM Time: 14:24 Benadryl 25 mg Intravenous Given by Mike Barton RN 02:24 PM Access obtained by percutaneous puncture. 5Fr 10cm Terumo [place] sheath placed in right Femoral artery. [id number] 02:25 PM 0.035 145cm Navilyst 3mmJ wire [id number] 02:25 PM 5Fr FL 4 catheter inserted over the wire [facility] 02:25 PM Time: 14:25 Oxygen on at 4 L/min per nasal cannula by Mike Barton RN 02:26 PM LCA angiography performed in multiple views. 02: PM Recorded Pressure: Ao, HR=88, Condition=Condition 1 (Aorta) Ao 83/63/73 02:27 PM Time: 14:27 Versed 1 mg Intravenous Given by Mike Barton RN 02:27 PM Time: 14:27 Fentanyl 25 mcg Intravenous Given by Mike Barton RN 02:28 PM Catheter removed 02:28 PM 5Fr FR 4 catheter inserted over the wire [facility] 02:29 PM RCA angiography performed in multiple views. : PM Time: 14:14LOC: 4 = Oriented but drowsy : PM Time: 14:14 Patient comfortable and pain free: Yes :29 PM Vitals capture started with the following parameters, Patient=Adult, Interval=5 min, Initial Mczkvgor=872 mmHg, Deflation Rate=5 mmHg, Cuff placed on Right Arm 02:29 PM Coronary Dominance: Co-dominant :29 PM Physician reviewing films 02:30 PM OD=796 bpm, NIBP=99/68 mmhg, SpO2=92.0 %, Resp=35 B/min, EtCO2=30 mmHg 02:32 PM Inflation device was opened. 02:33 PM Lesion found in Proximal LAD. Pre Stenosis: 99 Pre DOMENICA Flow: [email or web address] 02:33 PM Proximal Left Anterior Descending Coronary Artery with 99% stenosis. If graft is supplying this territory, 0 % stenosis. [email or web address] 02:34 PM Sheath exchanged for a 6 Fr 11 cm Cordis Mandy sheath [id number] [email or web address] 02:34 PM HR=99 bpm, LVTG=836/84 mmhg, SpO2=90.0 %, Resp=30 B/min, EtCO2=30 mmHg 02:35 PM Time: 14:35 Angiomax 0.75mg/kg bolus: 15 ml Intravenous Given by Mike Barton RN Mcclain pump [email or web address] 02:36 PM Time: 14:36 Angiomax 1.75mg/kg/hr: 35 ml/hr Intravenous Given by Mike Barton RN Mcclain pump bw 02:36 PM 6Fr XB LAD 3.5 Bulan Bright-Tip guide catheter was used to cannulate the PCI vessel successfully. reused? No [email or web address] 02:38 PM .014 Prowater 180cm guide wire across target lesion- successful. reused? No [email or web address] 02:38 PM Recorded Pressure: Ao, LJ=196, Condition=Condition 1 (Aorta) Ao 99/69/83 02:39 PM ZT=342 bpm, QDYF=368/78 mmhg, SpO2=91.0 %, Resp=19 B/min, EtCO2=27 mmHg 02:40 PM 2.5 mm x 12 mm Emerge Monorail balloon across target lesion- successful. reused? No [email or web address] 02:42 PM Balloon inflated @ 6 socorro for 20 seconds [email or web address] 02:43 PM Balloon inflated @ 8 socorro for 20 seconds [email or web address] 02:43 PM Balloon catheter removed intact. [email or web address] 02:44 PM Recorded Pressure: Ao, FH=184, Condition=Condition 1 (Aorta) Ao 102/74/87 02:44 PM Time: 14:29 Patient comfortable and pain free: Yes [email or web address] 02:44 PM Time: 14:29LOC: 4 = Oriented but drowsy [email or web address] 02:44 PM 3.5mm x 32mm Synergy drug-eluting stent across target lesion- successful Lot #[id number] [email or web address] 02:45 PM HR=72 bpm, NXGE=672/76 mmhg, SpO2=93.0 %, Resp=20 B/min, EtCO2=26 mmHg 02:46 PM Stent deployed @ 11 socorro for 30 seconds [email or web address] 02:47 PM Stent delivery system removed intact. [email or web address] 02:48 PM Time: 14:48 Nitroglycerin 200 mcg Intracoronary Given by Selina Rivera MD, FACC [email or web address] 02:49 PM Guide wire removed intact. [email or web address] 02:50 PM HR=84 bpm, XJUQ=685/77 mmhg, SpO2=92.0 %, Resp=21 B/min, EtCO2=38 mmHg 02:50 PM Guide catheter removed intact. [email or web address] 02:51 PM Bolus angiogram of right Femoral complete: 4 ml/sec for a total of 7 mls [email or web address] 02:51 PM Procedure completed at 14:51 12/30/2017 [email or web address] 02:51 PM Sign out completed: Radiation Dose 691.96 mGy, 6137.58 cGy/cm2 Fluoro Time: 4.3 Isovue 370 - 200ml contrast 158 ml given by Selina Rivera MD, [facility]. Complications: NoneCardiac Rehab Consult needed: YesConfirmed administered medications: Yes [email or web address] 02:51 PM Isovue 370 - 200ml,1 Bottle(s) used. [email or web address] 02:51 PM Sheath left in place to be pulled on floor/holding areaV+Pad [email or web address] 02:52 PM Estimated Blood Loss: less than 20cc [email or web address] 02:52 PM Post ECG Atrial Fibrillation [email or web address] 02:52 PM Post Blood Pressure 107/77 [email or web address] 02:52 PM 14:52 Post Pulses Bilateral DP & PT 1+ [email or web address] 02:52 PM Information taught Cardiac Cath and PCI [email or web address] 02:53 PM Education needs Procedure, Plan of Care, and Disease Process [email or web address] 02:53 PM Learning barriers :Sedated [email or web address] 02:53 PM Education Methods Verbal [email or web address] 02:53 PM Education evaluation Needs further instruction [email or web address] 02:53 PM Delay to floor No [email or web address] 02:53 PM Family placed in consult room. [email or web address] 02:53 PM Complications: None [email or web address] 02:53 PM Site status No bleeding/hematoma - Rt Groin as reported by Diamond Scott RT (R) at 14:53 [email or web address] 02:54 PM Time: 14:53 Brilinta 180 mg Orally Given by Mike Barton RN [email or web address] 02:55 PM HR=87 bpm, ZTTM=820/85 mmhg, SpO2=94.0 %, Resp=38 B/min 02:55 PM Lesion found in Proximal RCA. Pre Stenosis: 30 Pre DOMENICA Flow: [email or web address] 02:55 PM Lesion found in Mid RCA. Pre Stenosis: 40 Pre DOMENICA Flow: [email or web address] 02:55 PM Right Coronary, Right Posterior Descending Arteries with Right Posterolateral and Acute Marginal branches with 40 % stenosis. If graft is supplying this area, 0 % stenosis [email or web address] 02:56 PM Lesion found in Mid LAD. Pre Stenosis: 30 Pre DOMENICA Flow: [email or web address] 02:56 PM Mid/Distal Left Anterior Descending Coronary Artery and diagonal branches with 30% stenosis. If graft is supplying this area, 0 % stenosis [email or web address] 02:56 PM Lesion found in Proximal Circumflex. Pre Stenosis: 40 Pre DOMENICA Flow: [email or web address] 02:56 PM Lesion found in Mid Circumflex. Pre Stenosis: 40 Pre DOMENICA Flow: [email or web address] 02:56 PM Lesion found in Distal Circumflex. Pre Stenosis: 40 Pre DOMENICA Flow: [email or web address] 02:56 PM Lesion found in 1st Marginal. Pre Stenosis: 50 Pre DOMENICA Flow: [email or web address] 02:56 PM Circumflex, Obtuse Marginal, Left Posterior Descending, and Left Posterolateral Coronary Arteries with 50 % stenosis. If graft is supplying this area, 0 % stenosis [email or web address] 02:59 PM Time: 14:44LOC: 5 = Fully awake and oriented or at pre-proc level [email or web address] 02:59 PM Time: 14:44 Patient comfortable and pain free: Yes [email or web address] 03:02 PM Report given to maude BLOOM Pt taken to Room #8. 15:02 [email or web address] 03:03 PM Patient out of room: 15:03 [email or web address] Complications Complication None None Hemodynamics Pressures Site Systolic/A Wave Diastolic/V Wave Mean AO 83 63 73 AO 99 69 83 AO 102 74 87 Post Procedure Information Blood Pressure: 107/77 mmHg Rhythm: Atrial Fibrillation Post procedural instructions were given Site Checks Time Location Status Staff Sheath In? Note 02:53 PM Rt Groin No bleeding/hematoma Diamond Scott RT (R) Pulses Time Site Pre-Procedure Post-Procedure Note 12/30/2017 1:59:00 PM Bilateral DP & PT 1+ 2:52:00 PM Bilateral DP & PT 1+ Updated by Shashi Scott RT (R) on 12/30/2017 3:04:00 PM Shashi Scott, RT electronically signed on 12/30/2017 3:04:29 PM with status of Final
[2017-12-30 16:12] LABS: Mean Corpuscular HGB Conc 32.6 g/dL (31.6-35.5); Mean Corpuscular Hemoglobin 30.9 pg (28.0-33.3); Mean Corpuscular Volume 94.9 fL (83.0-100.0); Mean Platelet Volume 10.1 fL (9.4-12.4); Platelet Count 347 K/mcL (140-400); Red Blood Count 4.53 M/mcL (4.19-5.50); Red Cell Distribution Width 14.3 % (11.5-14.5)
[2017-12-30 16:39] LABS: Heparin anti-factor XA UFH 0.13 IU/mL (0.30-0.70)
[2017-12-30] MEDS ORDERED: 0.9 % Sodium Chloride 250 ML ONE (16:40)
[2017-12-30 16:45] LABS: INR 5.7; Prothrombin Time 64.3 Seconds (9.4-12.1)
[2017-12-30] MEDS: Levofloxacin 500 MG/100 ML 500 MG/100 ML BAG IVPB SCH (18:33)
[2017-12-30] MEDS: *HR* HYDROcodone/Acet 5/325 mg TABLET PO PRN (18:47)
[2017-12-30] MEDS ORDERED: *HR* Atropine Sulfate 1 MG/10 ML SYRINGE ONE (22:56)
[2017-12-30] MEDS ORDERED: *HR* Heparin 5,000 UNIT/ML VIAL IVP PRN ×2 (23:00)
[2017-12-30] MEDS ORDERED: Heparin 25,000 UNIT/500 ML D5W 25,000 UNIT/500 ML BAG IVC SCH (23:00)
[2017-12-30] MEDS ORDERED: *HR* Heparin 5,000 UNIT/ML VIAL IVP ONE (23:00)
[2017-12-31] MEDS: MethylPREDNISolone 40 MG/ML VIAL IVP SCH ×3 (00:03→18:10)
[2017-12-31] MEDS: Melatonin 3 MG TABLET PO PRN ×2 (00:54→20:34)
[2017-12-31] MEDS: *HR* HYDROcodone/Acet 5/325 mg TABLET PO PRN ×4 (00:54→20:34)
[2017-12-31 03:24] LABS: Basophils % 0.1 %; Eosinophils % 0.1 %; Hematocrit 40.4 % (37.5-50.1); Hemoglobin 13.8 g/dL (12.9-16.9); Immature Granulocytes % 0.6 % (0-4); Lymphocytes # 0.3 K/mcL (0.6-4.6); Lymphocytes % 1.6 %; Mean Corpuscular HGB Conc 34.2 g/dL (31.6-35.5); Mean Corpuscular Hemoglobin 31.7 pg (28.0-33.3); Mean Corpuscular Volume 92.9 fL (83.0-100.0); Mean Platelet Volume 10.2 fL (9.4-12.4); Monocytes # 1.2 K/mcL (0.0-1.3); Monocytes % 7.5 %; Neutrophils # 13.9 K/mcL (1.6-8.9); Platelet Count 409 K/mcL (140-400); Red Blood Count 4.35 M/mcL (4.19-5.50); Red Cell Distribution Width 14.4 % (11.5-14.5); Segmented Neutrophils % 90.1 %
[2017-12-31 03:33] LABS: INR 1.3
[2017-12-31] MEDS: Ipratropium Neb 0.5 MG NEBULIZER IH SCH ×4 (03:41→22:05)
[2017-12-31] MEDS: Levalbuterol Neb 1.25 MG/3 ML IH SCH ×4 (03:41→22:05)
[2017-12-31 03:54] LABS: Troponin I 0.76 ng/mL (< 0.04)
[2017-12-31 03:59] LABS: BUN/Creatinine Ratio 27 (6-26); Blood Urea Nitrogen 29 mg/dL (8-23); Calcium 8.6 mg/dL (8.6-10.3); Carbon Dioxide 25 mEq/L (23-29); Chloride 100 mEq/L (98-107); Glucose 315 mg/dL (70-105); Osmolality,Calculated 302 (280-300); Potassium 3.4 mEq/L (3.5-5.1); Sodium 137 mEq/L (136-145); eGFR For Non-African Americans > 60 (> 60)
[2017-12-31] MEDS ORDERED: *HR* Heparin 5,000 UNIT/ML VIAL IVP ONE (04:00)
[2017-12-31] MEDS: Metoprolol XL (24 HR) Succ 25 MG TAB.ER.24H PO SCH (07:45)
[2017-12-31] MEDS: Furosemide 40 MG/4 ML VIAL IVP SCH ×2 (07:45→16:15)
[2017-12-31] MEDS: Famotidine 20 MG TABLET PO SCH ×2 (07:45→16:14)
[2017-12-31] MEDS: Cholecalciferol (D-3) 1,000 UNIT TABLET PO SCH (07:45)
[2017-12-31] MEDS: Aspirin Enteric Coated 81 MG Tablet PO SCH (07:45)
[2017-12-31] MEDS ORDERED: Metoprolol XL (24 HR) Succ 25 MG TAB.ER.24H PO SCH (08:26)
--- NOTE | 2017-12-31 10:38 | Cardiology Progress Note ---
Date of Encounter: 12/31/17 Time of Encounter: 10:36 Assessment and Plan (1) NSTEMI (non-ST elevated myocardial infarction) Current Visit: Yes Status: Acute Peak troponin 2.56 (at [place]) with downward trend. Dynamic ECG changes noted on admission. TTE revealed newly reduced EF at 30-35%. [facility] completed and he was found to have 99% stenosis in his proximal LAD. He received PTCA and LUCY with good results. There was diffuse 40% stenosis in the LCx artery, 30% stenosis in the pRCA, and 40% stenosis in the mRCA remaining. He denies chest pain. No complication from procedure. No complications from right femoral access site. Importance of DAPT with asa and plavix uninterrupted for minimum of one year discussed and he voiced understanding. Continue statin and BB. Activity restrictions reviewed .Cardiac rehab ordered. (2) Atrial fibrillation with RVR Current Visit: Yes Status: Acute New diagnosis of atrial fibrillation with RVR; chronicity unclear. Patient reports ongoing symptoms for the past 3 weeks. ECG upon arrival to ED shows afib with RVR with rate 122 BPM, started on IV cardizem gtt. 12 hour tele: avg AF=973. HR suboptimal. Goal HR 100 bpm or less. TSH normal. Continues on IV cardizem gtt. Recommend increasing toprol xl and weaning of IV cardizem. Presently, CHADs Vasc2= 3 (HTN, CAD, CHF). On heparin gtt. I discussed salvage determiner anticoagulation with NOAC vs coumadin. He agrees to NOAC. He will require triple therapy due to PCI this admission. Can consider discontinuing asa in one month. I will send nika to [facility] for smith check. (3) CHF (congestive heart failure) Current Visit: Yes Status: Acute Acute CHFrEF. TTE reviewed LVEF 30-35%. Not all LV wall segments are optimally visualized. Mildly dilated left ventricle. Indeterminate diastolic function. RV is mildly dilated and mildly hypokinetic. Mild-moderate mitral regurgitation. Moderate tricuspid regurgitation. Mild pulmonary hypertension. The IVC is dilated. There is a small pericardial effusion present most prominent near the border of the RA. There is no echocardiographic evidence of tamponade. Continues to have fluid overload on exam. BLE edema up to knees. Rales in bilateral posterior bases noted. Recommend 1.5L fluid restriction and low sodium diet. Continue IV diuresis. Net negative 1300ml. On bb and increasing to help control heart rate. Start aceI if b/p allows after rate control. Continue strict I&O and daily weights. CHF education reviewed. Qualifiers: Heart failure type: unspecified Heart failure chronicity: acute Qualified Code(s): I50.9 - Heart failure, unspecified Discussion w patient/family: The assessment and plan as outlined above was discussed with the patient and/or family members who expressed understanding and agreement. All questions were answered. Thank you for involving us in the care of your patient. Please call with any questions. Subjective Principal diagnosis: acute systolic CHF, atrial fibrillation with RVR Interval history: Mr. Nguyen denies chest pain. Continues to have orthopnea and BLE edema. Objective Vital Signs, Last 4 Hours Temp Pulse Resp BP Pulse Ox 12/31/17 09:38 107 122/97 94 12/31/17 08:10 106 97/51 94 12/31/17 07:42 107 114/87 94 12/31/17 06:51 98.1 F 113 18 128/86 94 12/31/17 06:40 115 122/90 General: Conversant, No Apparent Distress HEENT: Atraumatic, Normocephaly, Mucus Membranes Moist Neck: No JVD, Normal carotid pulses Cardiac: Reg Rate and Rhythm, Normal S1 and S2, No Murmur Lungs: Normal Breath Sounds, No Wheeze, Rales, Rhonchi Neuro: Alert and responsive, No focal deficits noted Abdomen: Soft, Non-Tender Skin: No rashes noted on visualized skin Musculoskeletal: No Chest Wall Tenderness Extremities: No Clubbing, No Cyanosis, No Edema, Normal Pulses, Other (femoral access site without hematoma.) Results 12/31/17 03:17 12/31/17 03:17 Lab Results 12/30/17 12/30/17 12/31/17 15:52 15:52 03:17 WBC 15.0 H 15.4 H Hgb 14.0 13.8 Hct 43.0 40.4 Plt Count 347 409 H INR 5.7 H* D Sodium Potassium Chloride Carbon Dioxide BUN Creatinine Glucose Calcium Troponin I 12/31/17 12/31/17 03:17 03:17 WBC Hgb Hct Plt Count INR 1.3 D Sodium 137 Potassium 3.4 L Chloride 100 Carbon Dioxide 25 BUN 29 H Creatinine 1.06 Glucose 315 H Calcium 8.6 Troponin I 0.76 H* - Imaging and Cardiology Echo: report reviewed Cardiac cath: report reviewed - EKG Interpretation EKG results cardiology: personally reviewed Consult Discharge Plan - Plan Referrals: Adrienne Agrawal CNP [Partnered Physician] - (Office will call patient at home with follow appointment) [place],PCP [Primary Care Provider] - 01/06/18 2:30 pm (this is with the cary team at the [facility])
[2017-12-31] MEDS: Apixaban 5 MG TABLET PO SCH ×2 (12:44→20:34)
[2017-12-31] MEDS ORDERED: Dextrose Gel 15 GM/37.5 ML TUBE PO PRN ×2 (13:29)
[2017-12-31] MEDS ORDERED: *HR* Dextrose 50 % in Water (Syg) 50 ML SYRINGE IVP PRN (13:29)
[2017-12-31] MEDS ORDERED: D5% in Water 1,000 ML IVC PRN (13:29)
--- NOTE | 2017-12-31 15:18 | Internal Med Progress Note ---
Hospitalist Progress Note - Encounter Date of Encounter: 12/31/17 Time of Encounter: 15:15 - Subjective Interval History: Better shortness of breath. Patient is still has tachycardia with A. fib. Weaning down Cardizem drip. Patient had heart catheter done yesterday. He also had run of V. tach 18 beats on telemetry. Reviewed the labs with low potassium. Denied chest pain, fever, chills, nausea, vomiting, headache, dizziness, abdominal pain urinary bowel complaint. Reviewed the senior analytic consultant note - Exam Vitals: Temp Pulse Resp BP Pulse Ox 98.1 F 114 16 126/116 90 12/31/17 06:51 12/31/17 12:19 12/31/17 10:39 12/31/17 12:19 12/31/17 12:19 Exam: General appearance: No acute distress, A&O X 3 Head exam: Atraumatic Eye exam: EOMI, PERRLA ENT exam: Moist oral mucosa Neck nontender, supple Respiratory exam: Crepitation bilaterally Cardiovascular exam: Tachycardia with irregular rhythm, no systolic murmur Abdominal exam: Soft, nontender, nondistended, positive bowel sounds Extremities exam: No calf tenderness, +2 /+3 pedal edema Present: Skin- warm, dry, intact Neurological exam: CN II-XII intact, no focal deficits. No facial droop. Normal speech. Normal gait. - Assessment and Plan (1) NSTEMI (non-ST elevated myocardial infarction) Current Visit: Yes Status: Acute Assessment and Plan: Status post [facility] -PCI/DESto LAD on 12/30/2017. there was diffuse 40% stenosis in the LCx artery, 30% stenosis in the pRCA, and 40% stenosis in the mRCA remaining. Continue statin, beta aye, dual antiplatelet therapy with aspirin and Plavix uninterrupted for minimum 1 year cardiac rehabilitation. (2) Atrial fibrillation with RVR Current Visit: Yes Status: Acute Assessment and Plan: New onset. Most likely due to underlying CHF secondary to CO. Heparin drip often not started Eliquis. There are no V. tach therefore contacted financial planning analyst who increased the dose of beta aye. Review of the echocardiogram report. Weaning down IV Cardizem drip. CHADs Vasc2= 3 (HTN, CAD , CHF). (3) Acute systolic CHF (congestive heart failure) Current Visit: Yes Status: Acute Assessment and Plan: Newly diagnosed. Echocardiogram EF 30-35%, mildly dilated LV and RV and mildly hypokinetic, mild to moderate MR, moderate TR, mild pulmonary hypertension, IVC dilated, a small pericardial effusion. IV Lasix 40 mg twice a day continue as patient has negative balance more than 1 L, strict I&O's, daily weight, fluid restriction less 1 .5 L per day. Will consider adding FOREIGN inhibitor a BP allows after rate control. CHF education given (4) COPD exacerbation Current Visit: Yes Status: Acute Assessment and Plan: History of COPD. tapering the dose of IV Solu-Medrol, DuoNeb, Levaquin. Will wait for culture report. Urine Legionella and strep pneumoniae antigen negative. Oxygen supplementation. (5) HTN (hypertension) Current Visit: Yes Status: Acute Assessment and Plan: Initially borderline hypotensive but better blood pressure. Close monitoring of blood pressure on current medication. Will consider adding FOREIGN inhibitor if blood pressure allows (6) Electrolyte imbalance Current Visit: Yes Status: Acute Assessment and Plan: Low potassium. Replacement and monitor. (7) DVT prophylaxis Current Visit: Yes Status: Acute Assessment and Plan: Eliquis - Time Spent with Patient Total time spent is greater than 50% in coordination of care (as documented) at patient's floor/unit and/or counseling patient: 25 - 35 minutes Internal Medicine: Result - Labs CBC & Chem 7: 12/31/17 03:17 12/31/17 03:17 Labs: Short CBC 12/30/17 12/31/17 Range/Units 15:52 03:17 WBC 15.0 H 15.4 H (4.3-11.1) K/mcL Hgb 14.0 13.8 (12.9-16.9) g/dL Hct 43.0 40.4 (37.5-50.1) % Plt Count 347 409 H (140-400) K/mcL Neutrophils # 13.9 H (1.6-8.9) K/mcL BMP 12/31/17 03:17 Sodium 137 Potassium 3.4 L Chloride 100 Carbon Dioxide 25 BUN 29 H Creatinine 1.06 Glucose 315 H Calcium 8.6 Cardiac Enzymes 12/31/17 Range/Units 03:17 Troponin I 0.76 H* (< 0.04) ng/mL - ABG Interpretation ABG results: PT/INR, D-dimer PT 15.0 Seconds (9.4-12.1) H D 12/31/17 03:17 Consult Discharge Plan - Plan Referrals: Adrienne Agrawal, MANAGER USER INTERFACE [Partnered Physician] - (Office will call patient at home with follow appointment) [place],PCP [Primary Care Provider] - 01/06/18 2:30 pm (this is with the cary team at the [facility]) Prescriptions: Apixaban [Eliquis] 5 mg PO BID #60 tablet (5) HTN (hypertension) Qualifiers: Hypertension type: essential hypertension Qualified Code(s): I10 - Essential (primary) hypertension
[2017-12-31] MEDS: Insulin LISPRO 300 UNITS/3 ML VIAL SQ SCH ×2 (16:07→18:00)
[2017-12-31] MEDS: *HR* Metoprolol 5 MG/5 ML VIAL IVP PRN (18:09)
[2017-12-31] MEDS: Levofloxacin 500 MG/100 ML 500 MG/100 ML BAG IVPB SCH (18:09)
--- NOTE | 2017-12-31 20:21 | Electrocardiograph Report ---
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
--- NOTE | 2017-12-31 20:29 | Electrocardiograph Report ---
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
--- NOTE | 2017-12-31 20:52 | Electrocardiograph Report ---
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
[2018-01-01] MEDS: *HR* HYDROcodone/Acet 5/325 mg TABLET PO PRN ×4 (02:37→21:30)
[2018-01-01] MEDS: Levalbuterol Neb 1.25 MG/3 ML IH SCH ×4 (04:01→22:12)
[2018-01-01] MEDS: Ipratropium Neb 0.5 MG NEBULIZER IH SCH ×4 (04:01→22:12)
[2018-01-01] MEDS: MethylPREDNISolone 40 MG/ML VIAL IVP SCH (06:11)
[2018-01-01] MEDS ORDERED: D5% in Water 1,000 ML IVC PRN (07:56)
[2018-01-01] MEDS ORDERED: *HR* Dextrose 50 % in Water (Syg) 50 ML SYRINGE IVP PRN (07:56)
[2018-01-01] MEDS ORDERED: Dextrose Gel 15 GM/37.5 ML TUBE PO PRN ×2 (07:56)
[2018-01-01] MEDS: Insulin LISPRO 300 UNITS/3 ML VIAL SQ SCH ×4 (08:32→17:11)
[2018-01-01 08:40] LABS: Basophils % 0.1 %; Hematocrit 42.2 % (37.5-50.1); Hemoglobin 13.8 g/dL (12.9-16.9); Immature Granulocytes % 1.2 % (0-4); Immature Platelets 3.2 % (1.1-6.1); Lymphocytes # 0.8 K/mcL (0.6-4.6); Mean Corpuscular HGB Conc 32.7 g/dL (31.6-35.5); Mean Corpuscular Hemoglobin 30.8 pg (28.0-33.3); Mean Corpuscular Volume 94.2 fL (83.0-100.0); Mean Platelet Volume 10.4 fL (9.4-12.4); Monocytes # 1.6 K/mcL (0.0-1.3); Monocytes % 9.5 %; Neutrophils # 13.8 K/mcL (1.6-8.9); Platelet Count 405 K/mcL (140-400); Red Blood Count 4.48 M/mcL (4.19-5.50); Red Cell Distribution Width 14.8 % (11.5-14.5); Segmented Neutrophils % 84.2 %
[2018-01-01 08:54] LABS: BUN/Creatinine Ratio 39 (6-26); Blood Urea Nitrogen 34 mg/dL (8-23); Carbon Dioxide 25 mEq/L (23-29); Chloride 103 mEq/L (98-107); Glucose 175 mg/dL (70-105); Osmolality,Calculated 296 (280-300); Potassium 3.9 mEq/L (3.5-5.1); Sodium 137 mEq/L (136-145); eGFR For Non-African Americans > 60 (> 60)
[2018-01-01] MEDS: Famotidine 20 MG TABLET PO SCH ×2 (09:04→17:10)
[2018-01-01] MEDS: Aspirin Enteric Coated 81 MG Tablet PO SCH (09:04)
[2018-01-01] MEDS: Cholecalciferol (D-3) 1,000 UNIT TABLET PO SCH (09:04)
[2018-01-01] MEDS: Metoprolol XL (24 HR) Succ 50 MG TAB.ER.24H PO SCH (09:04)
[2018-01-01] MEDS: Apixaban 5 MG TABLET PO SCH ×2 (09:05→21:30)
[2018-01-01] MEDS: Furosemide 40 MG/4 ML VIAL IVP SCH ×2 (09:05→17:10)
--- NOTE | 2018-01-01 09:34 | Cardiology Progress Note ---
Date of Encounter: 01/01/18 Time of Encounter: 08:35 Assessment and Plan (1) NSTEMI (non-ST elevated myocardial infarction) Current Visit: Yes Status: Acute Peak troponin 2.56 (at [place]) with downward trend. Dynamic ECG changes noted on admission. TTE revealed newly reduced EF at 30-35%. [facility] completed and he was found to have 99% stenosis in his proximal LAD. He received PTCA and LUCY with good results. There was diffuse 40% stenosis in the LCx artery, 30% stenosis in the pRCA, and 40% stenosis in the mRCA remaining. He denies chest pain. No complication from procedure. No complications from right femoral access site. Importance of DAPT with asa and plavix uninterrupted for minimum of one year discussed and he voiced understanding. Continue statin and BB. Activity restrictions reviewed .Cardiac rehab ordered. (2) Atrial fibrillation with RVR Current Visit: Yes Status: Acute New diagnosis of atrial fibrillation with RVR; chronicity unclear. Patient reports ongoing symptoms for the past 3 weeks. ECG upon arrival to ED shows afib with RVR with rate 122 BPM, started on IV cardizem gtt. 12 hour tele: avg QN=609. HR suboptimal. Goal HR 100 bpm or less. HR 120-160 when up moving around room. TSH normal. Recommend increasing toprol xl as tolerated. Presently, CHADs Vasc2= 3 (HTN, CAD, CHF). I discussed intermediate project manager anticoagulation with NOAC vs coumadin. He agrees to NOAC. He will require triple therapy due to PCI this admission. Can consider discontinuing asa in one month. Eliquis started. (3) CHF (congestive heart failure) Current Visit: Yes Status: Acute Acute CHFrEF. TTE reviewed LVEF 30-35%. Not all LV wall segments are optimally visualized. Mildly dilated left ventricle. Indeterminate diastolic function. RV is mildly dilated and mildly hypokinetic. Mild-moderate mitral regurgitation. Moderate tricuspid regurgitation. Mild pulmonary hypertension. The IVC is dilated. There is a small pericardial effusion present most prominent near the border of the RA. There is no echocardiographic evidence of tamponade. Continues to have fluid overload on exam. BLE edema up to knees. Rales in bilateral posterior bases noted. Recommend 1.5L fluid restriction and low sodium diet. Continue IV diuresis. Net negative 1500ml. Only 395 out in 24 hours. Will give extra lasix. Goal net negative 1500 ml in 24 hours. On bb and increasing to help control heart rate. Start aceI if b/p allows after rate control. Continue strict I&O and daily weights. CHF education reviewed. Qualifiers: Heart failure type: unspecified Heart failure chronicity: acute Qualified Code(s): I50.9 - Heart failure, unspecified Discussion w patient/family: The assessment and plan as outlined above was discussed with the patient and/or family members who expressed understanding and agreement. All questions were answered. Thank you for involving us in the care of your patient. Please call with any questions. Subjective Principal diagnosis: acute systolic CHF, atrial fibrillation with RVR Interval history: Mr. Nguyen denies chest pain. Continues to have BLE edema and tachycardia. States that he has not slept well since his arrival. He is anxious to return home. Objective Vital Signs, Last 4 Hours Temp Pulse Resp BP Pulse Ox 01/01/18 09:17 139 16 108/98 93 01/01/18 07:29 98.0 F 127 16 139/116 96 01/01/18 05:48 98.3 F 112 19 139/92 General: Conversant, No Apparent Distress HEENT: Atraumatic, Normocephaly, Mucus Membranes Moist Neck: No JVD, Normal carotid pulses Cardiac: Other (Irregularly irregular) Lungs: Normal Breath Sounds, No Wheeze, Rales, Rhonchi Neuro: Alert and responsive, No focal deficits noted Abdomen: Soft, Non-Tender Skin: No rashes noted on visualized skin Musculoskeletal: No Chest Wall Tenderness Extremities: No Clubbing, No Cyanosis, Normal Pulses, Other (1-2 + edema ) Results 01/01/18 08:16 01/01/18 08:16 Lab Results 12/31/17 01/01/18 01/01/18 13:26 08:16 08:16 WBC 16.3 H Hgb 13.8 Hct 42.2 Plt Count 405 H Sodium 137 Potassium 3.9 Chloride 103 Carbon Dioxide 25 BUN 34 H Creatinine 0.88 Glucose 175 H Calcium 9.0 Magnesium 1.8 2.0 - Imaging and Cardiology Echo: report reviewed Cardiac cath: report reviewed - EKG Interpretation EKG results cardiology: personally reviewed Consult Discharge Plan - Plan Referrals: Adrienne Agrawal, WOOL CARDER [Partnered Physician] - (Office will call patient at home with follow appointment) [place],PCP [Primary Care Provider] - 01/06/18 2:30 pm (this is with the cary team at the [facility]) Prescriptions: Apixaban [Eliquis] 5 mg PO BID #60 tablet
[2018-01-01 09:58] LABS: INR 1.5; Prothrombin Time 17.2 Seconds (9.4-12.1)
[2018-01-01] MEDS ORDERED: Furosemide 40 MG/4 ML VIAL IVP ONE (12:00)
[2018-01-01] MEDS: Levofloxacin 500 MG/100 ML 500 MG/100 ML BAG IVPB SCH (17:10)
[2018-01-01] MEDS: predniSONE 20 MG TABLET PO SCH (17:10)
--- NOTE | 2018-01-01 17:20 | Internal Med Progress Note ---
Hospitalist Progress Note - Encounter Date of Encounter: 01/01/18 Time of Encounter: 17:18 - Subjective Interval History: Better shortness of breath. Patient is still has tachycardia with A. fib. Off Cardizem drip. Patient had heart catheter done on 12/30/2017. Reviewed the labs with attending of white count, normal potassium, better blood glucose level Denied chest pain, fever, chills, nausea, vomiting, headache, dizziness , abdominal pain urinary bowel complaint. Reviewed the sales development consultant note - Exam Vitals: Temp Pulse Resp BP Pulse Ox 98.0 F 111 16 105/78 92 01/01/18 17:07 01/01/18 17:07 01/01/18 17:07 01/01/18 17:07 01/01/18 15:26 Exam: General appearance: No acute distress, A&O X 3 Head exam: Atraumatic Eye exam: EOMI, PERRLA ENT exam: Moist oral mucosa Neck nontender, supple Respiratory exam: Crepitation bilaterally Cardiovascular exam: Regular rate and rhythm, no systolic murmur Abdominal exam: Soft, nontender, nondistended, positive bowel sounds Extremities exam: No calf tenderness, +2/+3 pedal edema Present: Neurological exam: Grossly intact - Assessment and Plan (1) NSTEMI (non-ST elevated myocardial infarction) Current Visit: Yes Status: Acute Assessment and Plan: Status post [facility] -PCI/DESto LAD on 12/30/2017. there was diffuse 40% stenosis in the LCx artery, 30% stenosis in the pRCA, and 40% stenosis in the mRCA remaining. Continue statin, beta aye, dual antiplatelet therapy with aspirin and Plavix uninterrupted for minimum 1 year cardiac rehabilitation. Added Eliquis as well. (2) Atrial fibrillation with RVR Current Visit: Yes Status: Acute Assessment and Plan: Is still has A. fib with RVR. Titrating up beta aye. New onset. Most likely due to underlying CHF secondary to MA. Heparin drip off. Continue Eliquis. CHADs Vasc2= 3 (HTN, CAD, CHF). Plan to discharge as advised by lead press operator (3) Acute systolic CHF (congestive heart failure) Current Visit: Yes Status: Acute Assessment and Plan: Newly diagnosed. Echocardiogram EF 30-35%, mildly dilated LV and RV and mildly hypokinetic, mild to moderate MR, moderate TR, mild pulmonary hypertension, IVC dilated, a small pericardial effusion. IV Lasix 40 mg twice a day continue as patient has negative balance more than 1 L, strict I&O's, daily weight, fluid restriction less 1 .5 L per day. Will consider adding FOREIGN inhibitor a BP allows after rate control. CHF education given Given extra dose of Lasix today. Patient is still appear volume overloaded (4) COPD exacerbation Current Visit: Yes Status: Acute Assessment and Plan: History of COPD. stopped IV Solu-Medrol, started prednisone 20 mg twice a day, DuoNeb Levaquin. Will wait for culture report. Urine Legionella and strep pneumoniae antigen negative. Oxygen supplementation. Leukocytosis-trending a white count even on antibiotic. Most likely reactive leukocytosis due to steroid. Monitor CBC. (5) HTN (hypertension) Current Visit: Yes Status: Acute Assessment and Plan: Low normal blood pressure. Close monitoring of blood pressure on current medication. Will consider adding FOREIGN inhibitor if blood pressure allows (6) Electrolyte imbalance Current Visit: Yes Status: Acute Assessment and Plan: Normal potassium. Replacement and monitor. (7) DVT prophylaxis Current Visit: Yes Status: Acute Assessment and Plan: Eliquis - Time Spent with Patient Total time spent is greater than 50% in coordination of care (as documented) at patient's floor/unit and/or counseling patient: 25 - 35 minutes Internal Medicine: Result - Labs CBC & Chem 7: 01/01/18 08:16 18 08:16 Labs: Short CBC 01/01/18 Range/Units 08:16 WBC 16.3 H (4.3-11.1) K/mcL Hgb 13.8 (12.9-16.9) g/dL Hct 42.2 (37.5-50.1) % Plt Count 405 H (140-400) K/mcL Neutrophils # 13.8 H (1.6-8.9) K/mcL BMP 01/01/18 08:16 Sodium 137 Potassium 3.9 Chloride 103 Carbon Dioxide 25 BUN 34 H Creatinine 0.88 Glucose 175 H Calcium 9.0 - ABG Interpretation ABG results: PT/INR, D-dimer PT 17.2 Seconds (9.4-12.1) H 01/01/18 09:30 Consult Discharge Plan - Plan Referrals: Adrienne Agrawal CNP [Partnered Physician] - (Office will call patient at home with follow appointment) DONAVONPCP [Primary Care Provider] - 01/06/18 2:30 pm (this is with the cary team at the [facility]) Prescriptions: Apixaban [Eliquis] 5 mg PO BID #60 tablet (5) HTN (hypertension) Qualifiers: Hypertension type: essential hypertension Qualified Code(s): I10 - Essential (primary) hypertension
[2018-01-01] MEDS: Melatonin 3 MG TABLET PO PRN (21:30)
--- NOTE | 2018-01-02 02:18 | Electrocardiograph Report ---
[address] [address] Test Date: 2017-12-30 Pat Name: Vadim Arroyo Department: 110 Room: 2N08 Gender: M [employer] Technician: : 1955 Requested By: Selina Rivera Order Number: [id number] Reading MD: Em Baez Measurements Intervals [place] Rate: 109 P: NM: 0 QRS: 59 QRSD: 108 T: 183 QT: 357 QTc: 421 Interpretive Statements ATRIAL FIBRILLATION WITH RAPID VENTRICULAR RESPONSE INCOMPLETE RIGHT BUNDLE BRANCH BLOCK ST DEVIATION AND MODERATE T-WAVE ABNORMALITY, CONSIDER ANTEROLATERAL ISCHEMIA Electronically Signed On 01-01-2018 16:15:16 EDT by Em Baez
[2018-01-02] MEDS: *HR* HYDROcodone/Acet 5/325 mg TABLET PO PRN ×3 (03:56→18:15)
[2018-01-02 04:01] LABS: Basophils % 0.1 %; Hematocrit 43.7 % (37.5-50.1); Hemoglobin 14.6 g/dL (12.9-16.9); Immature Granulocytes % 1.4 % (0-4); Lymphocytes # 1.5 K/mcL (0.6-4.6); Mean Corpuscular HGB Conc 33.4 g/dL (31.6-35.5); Mean Corpuscular Hemoglobin 31.5 pg (28.0-33.3); Mean Corpuscular Volume 94.4 fL (83.0-100.0); Mean Platelet Volume 10.5 fL (9.4-12.4); Monocytes # 1.8 K/mcL (0.0-1.3); Monocytes % 10.8 %; Neutrophils # 13.3 K/mcL (1.6-8.9); Platelet Count 357 K/mcL (140-400); Red Blood Count 4.63 M/mcL (4.19-5.50); Red Cell Distribution Width 14.6 % (11.5-14.5); Segmented Neutrophils % 78.7 %
[2018-01-02] MEDS: Ipratropium Neb 0.5 MG NEBULIZER IH SCH ×4 (04:03→21:49)
[2018-01-02] MEDS: Levalbuterol Neb 1.25 MG/3 ML IH SCH ×4 (04:03→21:49)
[2018-01-02 06:15] LABS: BUN/Creatinine Ratio 48 (6-26); Blood Urea Nitrogen 41 mg/dL (8-23); Calcium 8.8 mg/dL (8.6-10.3); Carbon Dioxide 28 mEq/L (23-29); Chloride 101 mEq/L (98-107); Glucose 139 mg/dL (70-105); Osmolality,Calculated 296 (280-300); Potassium 3.8 mEq/L (3.5-5.1); Sodium 137 mEq/L (136-145); eGFR For Non-African Americans > 60 (> 60)
[2018-01-02] MEDS: Insulin LISPRO 300 UNITS/3 ML VIAL SQ SCH ×3 (08:37→18:16)
[2018-01-02] MEDS: predniSONE 20 MG TABLET PO SCH ×2 (08:46→18:14)
[2018-01-02] MEDS: Aspirin Enteric Coated 81 MG Tablet PO SCH (08:46)
[2018-01-02] MEDS: Famotidine 20 MG TABLET PO SCH ×2 (08:46→18:14)
[2018-01-02] MEDS: Apixaban 5 MG TABLET PO SCH ×2 (08:46→21:54)
[2018-01-02] MEDS: Metoprolol XL (24 HR) Succ 50 MG TAB.ER.24H PO SCH (08:47)
[2018-01-02] MEDS: Cholecalciferol (D-3) 1,000 UNIT TABLET PO SCH (08:47)
[2018-01-02] MEDS: Furosemide 40 MG/4 ML VIAL IVP SCH ×2 (08:47→18:13)
[2018-01-02] MEDS: Potassium Chloride Elixir 20 MEQ/15 ML UDC PO SCH (08:47)
--- NOTE | 2018-01-02 12:21 | Cardiology Progress Note ---
Date of Encounter: 01/02/18 Time of Encounter: 11:30 Assessment and Plan (1) NSTEMI (non-ST elevated myocardial infarction) Current Visit: Yes Status: Acute Peak troponin 2.56 (at [place]) with downward trend. Dynamic ECG changes noted on admission. TTE revealed newly reduced EF at 30-35%. [facility] completed and he was found to have 99% stenosis in his proximal LAD. He received PTCA and LUCY with good results. There was diffuse 40% stenosis in the LCx artery, 30% stenosis in the pRCA, and 40% stenosis in the mRCA remaining. He denies chest pain. No complication from procedure. No complications from right femoral access site. Importance of DAPT with asa and plavix uninterrupted for minimum of one year discussed and he voiced understanding. Continue statin and BB. Activity restrictions reviewed .Cardiac rehab ordered. (2) Atrial fibrillation with RVR Current Visit: Yes Status: Acute New diagnosis of atrial fibrillation with RVR; chronicity unclear. Patient reports ongoing symptoms for the past 3 weeks. ECG upon arrival to ED shows afib with RVR with rate 122 BPM, started on IV cardizem gtt. 12 hour tele: avg BQ=622. HR suboptimal. Goal HR 100 bpm or less. HR 120-160 when up moving around room. TSH normal. Recommend increasing toprol xl as tolerated. Discussed with Dr. Rivera, increase toprol xl to 100 mg BID. Presently, CHADs Vasc2= 3 (HTN, CAD, CHF). I discussed prison anticoagulation with NOAC vs coumadin. He agrees to NOAC. He will require triple therapy due to PCI this admission. Can consider discontinuing asa in one month. Eliquis started. Ideally we would recommend rate control with HR 100 bpm or less prior to d/c. Patient adament he goes home AMA. Recommend increased toprol RX given at D/c. Eliquis RX sent to his pharmacy. Out-pt f/u in one week will be coordinated with [facility]. (3) CHF (congestive heart failure) Current Visit: Yes Status: Acute Acute CHFrEF. TTE reviewed LVEF 30-35%. Not all LV wall segments are optimally visualized. Mildly dilated left ventricle. Indeterminate diastolic function. RV is mildly dilated and mildly hypokinetic. Mild-moderate mitral regurgitation. Moderate tricuspid regurgitation. Mild pulmonary hypertension. The IVC is dilated. There is a small pericardial effusion present most prominent near the border of the RA. There is no echocardiographic evidence of tamponade. Repeat TTE in one week to re-eval pericardial effusion. If he is here tomorrow will order re-peat if HR better controlled. Continues to have fluid overload on exam. BLE edema up to knees. Recommend 1.5L fluid restriction and low sodium diet. Continue IV diuresis if patient will alow. He was encouraged to stay. Net negative 1950. Will give extra lasix. On bb and increasing to help control heart rate. Start aceI if b/p allows after rate control. Continue strict I&O and daily weights. CHF education reviewed. Qualifiers: Heart failure type: unspecified Heart failure chronicity: acute Qualified Code(s): I50.9 - Heart failure, unspecified Discussion w patient/family: The assessment and plan as outlined above was discussed with the patient and/or family members who expressed understanding and agreement. All questions were answered. Thank you for involving us in the care of your patient. Please call with any questions. Subjective Principal diagnosis: acute systolic CHF, atrial fibrillation with RVR Interval history: Mr. Nguyen denies chest pain. Continues to have BLE edema and tachycardia. States that he has not slept well since his arrival. He is anxious to return home and states he will leave today no matter what. Objective Vital Signs, Last 4 Hours Temp Pulse Resp BP Pulse Ox 01/02/18 11:05 18 99 01/02/18 11:01 97.7 F 130 19 126/98 98 01/02/18 10:07 128 20 117/92 98 01/02/18 08:59 133 01/02/18 08:53 137 20 General: Conversant, No Apparent Distress HEENT: Atraumatic, Normocephaly, Mucus Membranes Moist Neck: No JVD, Normal carotid pulses Cardiac: Other (Irregularly ) Results 01/02/18 03:27 01/02/18 05:43 Lab Results 01/02/18 01/02/18 03:27 05:43 WBC 16.9 H Hgb 14.6 Hct 43.7 Plt Count 357 Sodium 137 Potassium 3.8 Chloride 101 Carbon Dioxide 28 BUN 41 H Creatinine 0.85 Glucose 139 H Calcium 8.8 Consult Discharge Plan - Plan Referrals: Adrienne Agrawal CNP [Partnered Physician] - (Office will call patient at home with follow appointment) [place],PCP [Primary Care Provider] - 01/06/18 2:30 pm (this is with the cary team at the [facility]) Prescriptions: Apixaban [Eliquis] 5 mg PO BID #60 tablet
[2018-01-02] MEDS ORDERED: Furosemide 40 MG/4 ML VIAL IVP ONE (12:40)
[2018-01-02] MEDS: levoFLOXacin 500 MG TABLET PO SCH (13:04)
[2018-01-02] MEDS: *HR* Metoprolol 5 MG/5 ML VIAL IVP PRN (13:05)
--- NOTE | 2018-01-02 14:08 | Internal Med Progress Note ---
Hospitalist Progress Note - Encounter Date of Encounter: 01/02/18 Time of Encounter: 14:05 - Subjective Interval History: Better shortness of breath. Patient is still has tachycardia with A. fib and heart rate varies from 100 -132 with averages 120s. Off Cardizem drip. Patient had heart catheter done on 12/30/2017. Reviewed the labs with trending up white count, normal potassium, better blood glucose level Denied chest pain, fever, chills, nausea, vomiting, headache, dizziness, abdominal pain urinary bowel complaint. Reviewed the client development consultant note - Exam Vitals: Temp Pulse Resp BP Pulse Ox 97.7 F 117 22 126/98 99 01/02/18 11:01 01/02/18 13:11 01/02/18 13:07 01/02/18 11:01 01/02/18 11:05 Exam: General appearance: No acute distress, A&O X 3 Head exam: Atraumatic Eye exam: EOMI, PERRLA ENT exam: Moist oral mucosa Neck nontender, supple Respiratory exam: Decreased breath sound bilaterally Cardiovascular exam: A. fib with RVR, no systolic murmur Abdominal exam: Soft, nontender, nondistended, positive bowel sounds Extremities exam: No calf tenderness, +1 pedal edema Present: Neurological exam: Alert, awake, oriented 3, CN II-XII intact, no focal deficits. No facial droop. Normal speech. - Assessment and Plan (1) NSTEMI (non-ST elevated myocardial infarction) Current Visit: Yes Status: Acute Assessment and Plan: Status post [facility] -PCI/DESto LAD on 12/30/2017. there was diffuse 40% stenosis in the LCx artery, 30% stenosis in the pRCA, and 40% stenosis in the mRCA remaining. Continue statin, beta aye, dual antiplatelet therapy with aspirin and Plavix uninterrupted for minimum 1 year cardiac rehabilitation. Continue Eliquis. No active chest pain (2) Atrial fibrillation with RVR Current Visit: Yes Status: Acute Assessment and Plan: New onset secondary to underlying ischemic cardiac disease. Still tachycardic heart rate in 120s. Increased Toprol XL 100 mg by mouth twice a day. Now Heparin drip off. Continue Eliquis. CHADs Vasc2= 3 (HTN, CAD, CHF). Patient was adamant to go home but after explaining extensively the risk of inadequate treatment that can put the further cardiac risk patient decided to stay in the hospital. Goal for heart rate below 100 at rest prior to discharge. (3) Acute systolic CHF (congestive heart failure) Current Visit: Yes Status: Acute Assessment and Plan: Newly diagnosed. Echocardiogram EF 30-35%, mildly dilated LV and RV and mildly hypokinetic, mild to moderate MR, moderate TR, mild pulmonary hypertension, IVC dilated, a small pericardial effusion. IV Lasix 40 mg twice a day continue as patient has negative balance more than 1 L, strict I&O's, daily weight, fluid restriction less 1 .5 L per day. Will consider adding FOREIGN inhibitor a BP allows after rate control. CHF education given (4) COPD exacerbation Current Visit: Yes Status: Acute Assessment and Plan: History of COPD. stopped IV Solu-Medrol, started prednisone 20 mg twice a day with tapering dose, DuoNeb, Levaquin. Legionella antigen and strep pneumoniae antigen negative. No growth in blood culture. Oxygen supplementation. Leukocytosis-trending up white count even on antibiotic. Most likely reactive leukocytosis due to steroid. Monitor CBC. (5) HTN (hypertension) Current Visit: Yes Status: Acute Assessment and Plan: Better blood pressure today. Close monitoring of blood pressure on current medication. Will consider adding FOREIGN inhibitor if blood pressure allows (6) Electrolyte imbalance Current Visit: Yes Status: Acute Assessment and Plan: Normal potassium. Replacement and monitor. (7) DVT prophylaxis Current Visit: Yes Status: Acute Assessment and Plan: Eliquis - Time Spent with Patient Total time spent is greater than 50% in coordination of care (as documented) at patient's floor/unit and/or counseling patient: Greater than 35 minutes (Specimen more than 25 minute inpatient care and communication counseling of patient about is staying in the hospital discussing the risks and communicating with client development consultant and nursing staff) Internal Medicine: Result - Labs CBC & Chem 7: 01/02/18 03:27 01/02/18 05:43 Labs: Short CBC 01/02/18 Range/Units 03:27 WBC 16.9 H (4.3-11.1) K/mcL Hgb 14.6 (12.9-16.9) g/dL Hct 43.7 (37.5-50.1) % Plt Count 357 (140-400) K/mcL Neutrophils # 13.3 H (1.6-8.9) K/mcL BMP 08/03/18 05:43 Sodium 137 Potassium 3.8 Chloride 101 Carbon Dioxide 28 BUN 41 H Creatinine 0.85 Glucose 139 H Calcium 8.8 - ABG Interpretation ABG results: PT/INR, D-dimer PT 17.2 Seconds (9.4-12.1) H 01/01/18 09:30 Consult Discharge Plan - Plan Referrals: Adrienne Agrawal, HEAD TRACK COACH [Partnered Physician] - (Office will call patient at home with follow appointment) [place],PCP [Primary Care Provider] - 01/06/18 2:30 pm (this is with the cary team at the [facility]) Prescriptions: Apixaban [Eliquis] 5 mg PO BID #60 tablet (5) HTN (hypertension) Qualifiers: Hypertension type: essential hypertension Qualified Code(s): I10 - Essential (primary) hypertension
[2018-01-02] MEDS ORDERED: Metoprolol XL (24 HR) Succ 50 MG TAB.ER.24H PO SCH (21:00)
[2018-01-02] MEDS: Acetaminophen 325 MG TABLET PO PRN (21:54)
[2018-01-03] MEDS: Ipratropium Neb 0.5 MG NEBULIZER IH SCH ×4 (04:04→21:41)
[2018-01-03] MEDS: Levalbuterol Neb 1.25 MG/3 ML IH SCH ×4 (04:04→21:41)
[2018-01-03] MEDS: Insulin LISPRO 300 UNITS/3 ML VIAL SQ SCH ×3 (07:46→17:02)
[2018-01-03] MEDS: Cholecalciferol (D-3) 1,000 UNIT TABLET PO SCH (07:54)
[2018-01-03] MEDS: levoFLOXacin 500 MG TABLET PO SCH (07:54)
[2018-01-03] MEDS: predniSONE 20 MG TABLET PO SCH (07:54)
[2018-01-03] MEDS: Metoprolol XL (24 HR) Succ 50 MG TAB.ER.24H PO SCH ×2 (07:54→21:48)
[2018-01-03] MEDS: Apixaban 5 MG TABLET PO SCH ×2 (07:55→21:48)
[2018-01-03] MEDS: Famotidine 20 MG TABLET PO SCH ×2 (07:55→17:07)
[2018-01-03] MEDS: Potassium Chloride Elixir 20 MEQ/15 ML UDC PO SCH (07:55)
[2018-01-03] MEDS: Furosemide 40 MG/4 ML VIAL IVP SCH ×2 (07:55→21:48)
[2018-01-03] MEDS: Aspirin Enteric Coated 81 MG Tablet PO SCH (07:55)
[2018-01-03] MEDS: *HR* HYDROcodone/Acet 5/325 mg TABLET PO PRN ×3 (08:00→23:51)
[2018-01-03 09:36] LABS: Basophils % 0.1 %; Eosinophils % 0.1 %; Hematocrit 47.4 % (37.5-50.1); Hemoglobin 15.8 g/dL (12.9-16.9); Immature Granulocytes % 0.7 % (0-4); Lymphocytes # 3.3 K/mcL (0.6-4.6); Lymphocytes % 20.3 %; Mean Corpuscular HGB Conc 33.3 g/dL (31.6-35.5); Mean Corpuscular Volume 92.9 fL (83.0-100.0); Monocytes # 1.9 K/mcL (0.0-1.3); Monocytes % 11.4 %; Neutrophils # 11.1 K/mcL (1.6-8.9); Platelet Count 389 K/mcL (140-400); Red Cell Distribution Width 14.5 % (11.5-14.5); Segmented Neutrophils % 67.4 %
[2018-01-03 09:44] LABS: BUN/Creatinine Ratio 45 (6-26); Blood Urea Nitrogen 43 mg/dL (8-23); Calcium 9.1 mg/dL (8.6-10.3); Carbon Dioxide 28 mEq/L (23-29); Chloride 97 mEq/L (98-107); Glucose 109 mg/dL (70-105); Osmolality,Calculated 295 (280-300); Potassium 4.1 mEq/L (3.5-5.1); Sodium 137 mEq/L (136-145); eGFR For Non-African Americans > 60 (> 60)
--- NOTE | 2018-01-03 11:57 | Cardiology Progress Note ---
Date of Encounter: 01/03/18 Time of Encounter: 11:50 Assessment and Plan (1) NSTEMI (non-ST elevated myocardial infarction) Current Visit: Yes Status: Acute Peak troponin 2.56 (at [place]) with downward trend. Dynamic ECG changes noted on admission. TTE revealed newly reduced EF at 30-35%. [facility] completed and he was found to have 99% stenosis in his proximal LAD. He received PTCA and LUCY with good results. There was diffuse 40% stenosis in the LCx artery, 30% stenosis in the pRCA, and 40% stenosis in the mRCA remaining. He denies chest pain. No complication from procedure. No complications from right femoral access site. Importance of DAPT with asa and plavix uninterrupted for minimum of one year discussed and he voiced understanding. Continue statin and BB. Activity restrictions reviewed .Cardiac rehab ordered. (2) Atrial fibrillation with RVR Current Visit: Yes Status: Acute New diagnosis of atrial fibrillation with RVR; chronicity unclear. Patient reports ongoing symptoms for the past 3 weeks. ECG upon arrival to ED shows afib with RVR with rate 122 BPM, started on IV cardizem gtt. 12 hour tele: avg [id number]. HR suboptimal. Goal HR 100 bpm or less. HR 90-120. TSH normal. Recommend increasing toprol xl as tolerated. Discussed with Dr. Rivera, increase toprol xl to 150 mg BID. WIll consider adding amiodarone if b/p will not allow for further titration of beta-aye. No cardizem due to CMP. IV lopressor PRN ordered. Presently, CHADs Vasc2= 3 (HTN, CAD, CHF). I discussed [facility] anticoagulation with NOAC vs coumadin. He agrees to NOAC. He will require triple therapy due to PCI this admission. Can consider discontinuing asa in one month. Eliquis started during stay. Ideally we would recommend rate control with HR 100 bpm or less prior to d/c. Patient adament he goes home AMA. We will continue to monitor. (3) CHF (congestive heart failure) Current Visit: Yes Status: Acute Acute CHFrEF. TTE reviewed LVEF 30-35%. Not all LV wall segments are optimally visualized. Mildly dilated left ventricle. Indeterminate diastolic function. RV is mildly dilated and mildly hypokinetic. Mild-moderate mitral regurgitation. Moderate tricuspid regurgitation. Mild pulmonary hypertension. The IVC is dilated. There is a small pericardial effusion present most prominent near the border of the RA. There is no echocardiographic evidence of tamponade. Life vest on patient. Seen to have small runs NSVT throughout stay. Will order TTE to be repeated tomorrow if HR better controlled to re-assess pericardial effusion. Continues to have fluid overload on exam. BLE edema up to knees. SOme improvement seen today. Recommend 1.5L fluid restriction and low sodium diet. Continue IV diuresis if patient will alow. He was encouraged to stay. Net negative 2500ml. Will give extra lasix today. On bb and increasing to help control heart rate. Start aceI if b/p allows after rate control. Continue strict I&O and daily weights. CHF education reviewed. Qualifiers: Heart failure type: unspecified Heart failure chronicity: acute Qualified Code(s): I50.9 - Heart failure, unspecified Discussion w patient/family: The assessment and plan as outlined above was discussed with the patient and/or family members who expressed understanding and agreement. All questions were answered. Thank you for involving us in the care of your patient. Please call with any questions. Subjective Principal diagnosis: acute systolic CHF, atrial fibrillation with RVR Interval history: Mr. Nguyen denies chest pain. Continues to have BLE edema and tachycardia but improved. He decided to stay for treatment yesterday. Currently he is getting dressed and states he is going home. I encouraged him to stay again. HR improved but 99-120 bpm. Objective Vital Signs, Last 4 Hours Pulse Resp BP Pulse Ox 01/03/18 11:14 113 18 102/80 01/03/18 09:27 16 132/103 93 General: Conversant, No Apparent Distress, Other (ANxious appearing) HEENT: Atraumatic, Normocephaly, Mucus Membranes Moist Neck: No JVD, Normal carotid pulses Cardiac: Other (Irregularly irregular) Lungs: Normal Breath Sounds, No Wheeze, Rales, Rhonchi, Other Neuro: Alert and responsive, No focal deficits noted Abdomen: Soft, Non-Tender Skin: No rashes noted on visualized skin Musculoskeletal: No Chest Wall Tenderness Extremities: No Clubbing, No Cyanosis, Normal Pulses, Other (2+ BLE edema) Results 01/03/18 08:37 01/03/18 08:37 Lab Results 01/03/18 01/03/18 08:37 08:37 WBC 16.4 H Hgb 15.8 Hct 47.4 Plt Count 389 Sodium 137 Potassium 4.1 Chloride 97 L Carbon Dioxide 28 BUN 43 H Creatinine 0.95 Glucose 109 H Calcium 9.1 - Imaging and Cardiology Echo: report reviewed - EKG Interpretation EKG results cardiology: personally reviewed Consult Discharge Plan - Plan Referrals: Adrienne Agrawal, ANA MARIA [Partnered Physician] - (Office will call patient at home with follow appointment) [place],PCP [Primary Care Provider] - 01/06/18 2:30 pm (this is with the cary team at the [facility]) Prescriptions: Apixaban [Eliquis] 5 mg PO BID #60 tablet
[2018-01-03] MEDS ORDERED: Furosemide 40 MG/4 ML VIAL IVP SCH (12:15)
[2018-01-03] MEDS: ALPRAZolam 0.25 MG TABLET PO PRN ×2 (14:05→21:48)
[2018-01-03] MEDS: *HR* Metoprolol 5 MG/5 ML VIAL IVP PRN (14:05)
--- NOTE | 2018-01-03 15:47 | Internal Med Progress Note ---
Hospitalist Progress Note - Encounter Date of Encounter: 01/03/18 Time of Encounter: 15:42 - Subjective Interval History: Better shortness of breath. Patient is still has tachycardia with A. fib and heart rate varies from 100 - 120s. Off Cardizem drip. Patient had heart catheter done on 12/30/2017. Reviewed the labs with stable but high white count, normal potassium, better blood glucose level Denied chest pain, fever , chills, nausea, vomiting, headache, dizziness, abdominal pain urinary bowel complaint. Reviewed the it security consultant note - Exam Vitals: Temp Pulse Resp BP Pulse Ox 98.0 F 113 18 102/80 93 01/03/18 07:28 01/03/18 11:14 01/03/18 11:14 01/03/18 11:14 01/03/18 09:27 Exam: General appearance: No acute distress, A&O X 3 Head exam: Atraumatic Eye exam: EOMI, PERRLA ENT exam: Moist oral mucosa Neck nontender, supple Respiratory exam: Slight Decreased breath sound bilaterally Cardiovascular exam: A. fib with RVR, no systolic murmur Abdominal exam: Soft, nontender, nondistended, positive bowel sounds Extremities exam: No calf tenderness, +1 pedal edema Present: Neurological exam: Alert, awake, oriented 3, CN II-XII intact, no focal deficits. No facial droop. Normal speech. - Assessment and Plan (1) Atrial fibrillation with RVR Current Visit: Yes Status: Acute Assessment and Plan: New onset secondary to underlying ischemic cardiac disease. Still tachycardic heart rate in 120s. Increased Toprol XL 150 mg by mouth twice a day by cardiology. Now Heparin drip off. Continue Eliquis. CHADs Vasc2= 3 (HTN, CAD , CHF). Goal for heart rate below 100 at rest prior to discharge. Plan to discharge patient possibly tomorrow if heart rate reasonably controlled (2) NSTEMI (non-ST elevated myocardial infarction) Current Visit: Yes Status: Acute Assessment and Plan: Status post [facility] -PCI/DESto LAD on 12/30/2017. there was diffuse 40% stenosis in the LCx artery, 30% stenosis in the pRCA, and 40% stenosis in the mRCA remaining. Continue statin, beta aye, dual antiplatelet therapy with aspirin and Plavix uninterrupted for minimum 1 year cardiac rehabilitation. Continue Eliquis. No active chest pain (3) Acute systolic CHF (congestive heart failure) Current Visit: Yes Status: Acute Assessment and Plan: Newly diagnosed. Echocardiogram EF 30-35%, mildly dilated LV and RV and mildly hypokinetic, mild to moderate MR, moderate TR, mild pulmonary hypertension, IVC dilated, a small pericardial effusion. IV Lasix 40 mg twice a day continue as patient has negative balance more than 1 L, strict I&O's, daily weight, fluid restriction less 1 .5 L per day. Will consider adding FOREIGN inhibitor a BP allows after rate control. CHF education given (4) COPD exacerbation Current Visit: Yes Status: Acute Assessment and Plan: History of COPD. stopped IV Solu-Medrol, started prednisone 20 mg twice a day with tapering dose and now on once a day, DuoNeb, Levaquin. Legionella antigen and strep pneumoniae antigen negative. No growth in blood culture. Oxygen supplementation. Leukocytosis-trending up white count even on antibiotic. Most likely reactive leukocytosis due to steroid. Monitor CBC. (5) HTN (hypertension) Current Visit: Yes Status: Acute Assessment and Plan: Close monitoring of blood pressure on current medication. Will consider adding FOREIGN inhibitor if blood pressure allows (6) Electrolyte imbalance Current Visit: Yes Status: Acute Assessment and Plan: Normal potassium. Replacement and monitor. (7) DVT prophylaxis Current Visit: Yes Status: Acute Assessment and Plan: Eliquis - Time Spent with Patient Total time spent is greater than 50% in coordination of care (as documented) at patient's floor/unit and/or counseling patient: 25 - 35 minutes Internal Medicine: Result - Labs CBC & Chem 7: 01/03/18 08:37 01/03/18 08:37 Labs: Short CBC 01/03/18 Range/Units 08:37 WBC 16.4 H (4.3-11.1) K/mcL Hgb 15.8 (12.9-16.9) g/dL Hct 47.4 (37.5-50.1) % Plt Count 389 (140-400) K/mcL Neutrophils # 11.1 H (1.6-8.9) K/mcL BMP 01/03/18 08:37 Sodium 137 Potassium 4.1 Chloride 97 L Carbon Dioxide 28 BUN 43 H Creatinine 0.95 Glucose 109 H Calcium 9.1 - ABG Interpretation ABG results: PT/INR, D-dimer PT 17.2 Seconds (9.4-12.1) H 01/01/18 09:30 Consult Discharge Plan - Plan Referrals: Adrienne Agrawal, WIRE REPAIRER [Partnered Physician] - (Office will call patient at home with follow appointment) [place],PCP [Primary Care Provider] - 01/06/18 2:30 pm (this is with the cary team at the [facility]) Prescriptions: Apixaban [Eliquis] 5 mg PO BID #60 tablet (5) HTN (hypertension) Qualifiers: Hypertension type: essential hypertension Qualified Code(s): I10 - Essential (primary) hypertension
[2018-01-04] MEDS: Levalbuterol Neb 1.25 MG/3 ML IH SCH ×4 (04:10→22:55)
[2018-01-04] MEDS: Ipratropium Neb 0.5 MG NEBULIZER IH SCH ×4 (04:10→22:55)
[2018-01-04 05:32] LABS: Basophils % 0.1 %; Eosinophils # 0.1 K/mcL (0.0-0.6); Eosinophils % 0.8 %; Hemoglobin 13.9 g/dL (12.9-16.9); Immature Granulocytes % 0.8 % (0-4); Lymphocytes # 4.3 K/mcL (0.6-4.6); Lymphocytes % 25.6 %; Mean Corpuscular HGB Conc 33.1 g/dL (31.6-35.5); Mean Corpuscular Hemoglobin 30.4 pg (28.0-33.3); Mean Corpuscular Volume 91.9 fL (83.0-100.0); Mean Platelet Volume 10.8 fL (9.4-12.4); Monocytes # 1.9 K/mcL (0.0-1.3); Monocytes % 11.2 %; Neutrophils # 10.3 K/mcL (1.6-8.9); Platelet Count 394 K/mcL (140-400); Red Blood Count 4.57 M/mcL (4.19-5.50); Red Cell Distribution Width 14.6 % (11.5-14.5); Segmented Neutrophils % 61.5 %
[2018-01-04 06:44] LABS: BUN/Creatinine Ratio 43 (6-26); Blood Urea Nitrogen 44 mg/dL (8-23); Calcium 8.3 mg/dL (8.6-10.3); Carbon Dioxide 30 mEq/L (23-29); Chloride 97 mEq/L (98-107); Glucose 133 mg/dL (70-105); Osmolality,Calculated 299 (280-300); Potassium 3.6 mEq/L (3.5-5.1); Sodium 138 mEq/L (136-145); eGFR For Non-African Americans > 60 (> 60)
[2018-01-04] MEDS: Potassium Chloride Elixir 20 MEQ/15 ML UDC PO SCH (08:36)
[2018-01-04] MEDS: Metoprolol XL (24 HR) Succ 50 MG TAB.ER.24H PO SCH ×2 (08:36→20:35)
[2018-01-04] MEDS: Furosemide 40 MG/4 ML VIAL IVP SCH ×2 (08:36→20:36)
[2018-01-04] MEDS: Famotidine 20 MG TABLET PO SCH ×2 (08:37→14:33)
[2018-01-04] MEDS: Cholecalciferol (D-3) 1,000 UNIT TABLET PO SCH (08:37)
[2018-01-04] MEDS: predniSONE 20 MG TABLET PO SCH ×3 (08:37→20:36)
[2018-01-04] MEDS: Apixaban 5 MG TABLET PO SCH ×2 (08:37→20:35)
[2018-01-04] MEDS: levoFLOXacin 500 MG TABLET PO SCH (08:38)
[2018-01-04] MEDS: Aspirin Enteric Coated 81 MG Tablet PO SCH (08:38)
[2018-01-04] MEDS: ALPRAZolam 0.25 MG TABLET PO PRN ×2 (08:38→14:33)
[2018-01-04] MEDS: *HR* HYDROcodone/Acet 5/325 mg TABLET PO PRN ×3 (08:55→20:35)
--- NOTE | 2018-01-04 10:38 | Cardiology Progress Note ---
Date of Encounter: 01/04/18 Time of Encounter: 10:36 Assessment and Plan (1) NSTEMI (non-ST elevated myocardial infarction) Current Visit: Yes Status: Acute Peak troponin 2.56 (at [place]) with downward trend. Dynamic ECG changes noted on admission. TTE revealed newly reduced EF at 30-35%. C completed and he was found to have 99% stenosis in his proximal LAD. He received PTCA and LUCY with good results. There was diffuse 40% stenosis in the LCx artery, 30% stenosis in the pRCA, and 40% stenosis in the mRCA remaining. He denies chest pain. No complication from procedure. No complications from right femoral access site. Importance of DAPT with asa and plavix uninterrupted for minimum of one year discussed and he voiced understanding. Continue statin and BB. Activity restrictions reviewed.Cardiac rehab ordered. C/o lower right abdominal pain to palpation and with movement. No hematoma palpated. Hgb noted to decrease today but still in normal range. C completed 5 days ago. Hematoma unlikely at this point. Trend Hgb. Consider CT abd/pelvis if Hgb continues to drop. (2) Atrial fibrillation with RVR Current Visit: Yes Status: Acute New diagnosis of atrial fibrillation with RVR; chronicity unclear. Patient reports ongoing symptoms for the past 3 weeks. ECG upon arrival to ED shows afib with RVR with rate 122 BPM, started on IV cardizem gtt. 12 hour tele: avg LI=[id number]. HR suboptimal. Goal HR 100 bpm or less. HR 99-115. TSH normal. Toprol increased to 150 mg BID yesterday. Discussed with Dr. Rivera, recommends adding oral amiodarone load. If no impovement in HR he will need cardioversion. Presently, CHADs Vasc2= 3 (HTN, CAD, CHF). I discussed alf anticoagulation with NOAC vs coumadin. He agreed to NOAC. He will require triple therapy due to PCI this admission. Voiced understanding of increased risk of bleeding. Can consider discontinuing asa in one month. Eliquis started during stay. Ideally we would recommend rate control with HR 100 bpm or less prior to d/c. (3) CHF (congestive heart failure) Current Visit: Yes Status: Acute Acute CHFrEF. TTE reviewed LVEF 30-35%. Not all LV wall segments are optimally visualized. Mildly dilated left ventricle. Indeterminate diastolic function. RV is mildly dilated and mildly hypokinetic. Mild-moderate mitral regurgitation. Moderate tricuspid regurgitation. Mild pulmonary hypertension. The IVC is dilated. There is a small pericardial effusion present most prominent near the border of the RA. There is no echocardiographic evidence of tamponade. Life vest on patient. Seen to have small runs NSVT throughout stay. Re-peat TTE ordered for today. BLE edema up to knees. Some improvement seen today. May be difficult to control until HR is better controlled. IV lasix increased yesterday to 80 mg BID. Recommend 1.5L fluid restriction and low sodium diet. Continue IV diuresis. On bb and increasing to help control heart rate. Start aceI. Continue strict I&O and daily weights. CHF education reviewed. Qualifiers: Heart failure type: unspecified Heart failure chronicity: acute Qualified Code(s): I50.9 - Heart failure, unspecified Discussion w patient/family: The assessment and plan as outlined above was discussed with the patient and/or family members who expressed understanding and agreement. All questions were answered. Thank you for involving us in the care of your patient. Please call with any questions. Subjective Principal diagnosis: acute systolic CHF, atrial fibrillation with RVR Interval history: Mr. Nguyen denies chest pain. Continues to have BLE edema and tachycardia but improved. C/o abdominal wall pain with movement. States I think "I pulled a muscle." Objective Vital Signs, Last 4 Hours Temp Pulse Resp BP Pulse Ox 01/04/18 09:20 18 110/89 94 01/04/18 07:00 98 F 115 20 110/89 95 General: Conversant, No Apparent Distress HEENT: Atraumatic, Normocephaly, Mucus Membranes Moist Neck: No JVD, Normal carotid pulses Cardiac: Other (Irrgeularly irregualr) Lungs: Normal Breath Sounds, No Wheeze, Rales, Rhonchi Neuro: Alert and responsive, No focal deficits noted Abdomen: Soft, Non-Tender Skin: No rashes noted on visualized skin Musculoskeletal: No Chest Wall Tenderness Extremities: No Clubbing, No Cyanosis, Normal Pulses, Other (2+ BLE edema) Results 01/04/18 05:08 01/04/18 05:08 Lab Results 01/04/18 01/04/18 05:08 05:08 WBC 16.7 H Hgb 13.9 D Hct 42.0 Plt Count 394 Sodium 138 Potassium 3.6 Chloride 97 L Carbon Dioxide 30 H BUN 44 H Creatinine 1.02 Glucose 133 H Calcium 8.3 L - Imaging and Cardiology Echo: report reviewed Cardiac cath: report reviewed - EKG Interpretation EKG results cardiology: personally reviewed Consult Discharge Plan - Plan Referrals: Adrienne Agrawal, ANA MARIA [Partnered Physician] - (Office will call patient at home with follow appointment) [place],PCP [Primary Care Provider] - 01/06/18 2:30 pm (this is with the cary team at the [facility]) Prescriptions: Apixaban [Eliquis] 5 mg PO BID #60 tablet
[2018-01-04 11:16] LABS: Hematocrit 46.8 % (37.5-50.1)
[2018-01-04 11:17] LABS: Hemoglobin 15.8 g/dL (12.9-16.9)
[2018-01-04] MEDS: Insulin LISPRO 300 UNITS/3 ML VIAL SQ SCH ×3 (11:31→19:36)
[2018-01-04] MEDS: *HR* Amiodarone 200 MG TABLET PO SCH ×2 (11:32→20:35)
--- NOTE | 2018-01-04 12:33 | Internal Med Progress Note ---
Hospitalist Progress Note - Encounter Date of Encounter: 01/04/18 Time of Encounter: 12:30 - Subjective Interval History: Patient states that he is feeling lethargic overall but does not have any chest pain he had lots of questions regarding his plan of care and I answered all of them to the best of my ability. He states he has lack of energy and does feel occasionally short of breath but overall he seems to be doing better. - Exam Vitals: Temp Pulse Resp BP Pulse Ox 97.9 F 111 20 99/90 98 01/04/18 11:21 01/04/18 11:21 01/04/18 11:21 01/04/18 11:21 01/04/18 11:21 Exam: GENERAL: Alert, moderate distress, cooperative NECK: No jugulovenous distention, No carotid bruits, Carotid pulse normal contour, Supple LUNGS: Scattered crackles bilateral lower lung harvey CARDIAC: Irregular and tachycardic; no rubs, murmurs, or gallops ABDOMEN: Abdomen soft, non-tender, BS normal, No masses or organomegaly EXTREMITIES: 1+ pitting edema bilateral lower extremities PULSES: 2+ radial, 2+ carotid - Assessment and Plan (1) Atrial fibrillation with RVR Current Visit: Yes Status: Acute Assessment and Plan: New onset secondary to underlying ischemic cardiac disease. Still tachycardic heart rate in 120s. Increased Toprol XL 150 mg by mouth twice a day by cardiology. Now Heparin drip off. Continue Eliquis. CHADs Vasc2= 3 (HTN, CAD , CHF). Goal for heart rate below 100 at rest prior to discharge. Plan to discharge patient possibly tomorrow if heart rate reasonably controlled 01/04-continues to be uncontrolled and a challenge. Toprol increased to 150 twice a day yesterday. We will follow recommend she from cardiology. Planning on adding amiodarone as per their consult follow-up. If no improvement today that he will need cardioversion. He continues to be tachycardic in the 110 to 115 range. Ideally they would recommend heart rate controlled 100bpm prior to discharge. He is on anticoagulant with Eliquis (2) Acute systolic CHF (congestive heart failure) Current Visit: Yes Status: Acute Assessment and Plan: Newly diagnosed. Echocardiogram EF 30-35%, mildly dilated LV and RV and mildly hypokinetic, mild to moderate MR, moderate TR, mild pulmonary hypertension, IVC dilated, a small pericardial effusion. IV Lasix 40 mg twice a day continue as patient has negative balance more than 1 L, strict I&O's, daily weight, fluid restriction less 1 .5 L per day. Will consider adding FOREIGN inhibitor a BP allows after rate control. CHF education given 01/04-acute systolic congestive heart failure with reduced ejection fraction. Recent LVEF 30-35% on TTE. Most likely due to coronary artery disease and myocardial infarction. Continue on Lasix IV as well as fluid restriction. Starting FOREIGN inhibitor today and continue on beta aye. Cardiology following (3) COPD exacerbation Current Visit: Yes Status: Acute (4) HTN (hypertension) Current Visit: Yes Status: Acute Assessment and Plan: Close monitoring of blood pressure on current medication. Will consider adding FOREIGN inhibitor if blood pressure allows 01/04-continue current medications. FOREIGN inhibitor added at low dose. (5) DVT prophylaxis Current Visit: Yes Status: Acute (6) NSTEMI (non-ST elevated myocardial infarction) Current Visit: Yes Status: Acute Assessment and Plan: Status post [facility] -PCI/DESto LAD on 12/30/2017. there was diffuse 40% stenosis in the LCx artery, 30% stenosis in the pRCA, and 40% stenosis in the mRCA remaining. Continue statin, beta aye, dual antiplatelet therapy with aspirin and Plavix uninterrupted for minimum 1 year cardiac rehabilitation. Continue Eliquis. No active chest pain 01/04-same as above. Continue aspirin and Plavix. Continue Eliquis for atrial fibrillation. LifeVest in place for poor ejection fraction. He will need cardiac rehabilitation. Cardiology following at this point. He is on low-dose FOREIGN inhibitor's also starting today. (7) Electrolyte imbalance Current Visit: Yes Status: Acute - Time Spent with Patient Total time spent is greater than 50% in coordination of care (as documented) at patient's floor/unit and/or counseling patient: Greater than 35 minutes Plan of Care Discussed with: nurse (Plan of care discussed with patient and nurse in detail) Internal Medicine: Result - Labs CBC & Chem 7: 01/04/18 11:02 01/04/18 05:08 Labs: Short CBC 01/04/18 01/04/18 Range/Units 05:08 11:02 WBC 16.7 H (4.3-11.1) K/mcL Hgb 13.9 D 15.8 D (12.9-16.9) g/dL Hct 42.0 46.8 (37.5-50.1) % Plt Count 394 (140-400) K/mcL Neutrophils # 10.3 H (1.6-8.9) K/mcL BMP 01/04/18 05:08 Sodium 138 Potassium 3.6 Chloride 97 L Carbon Dioxide 30 H BUN 44 H Creatinine 1.02 Glucose 133 H Calcium 8.3 L - ABG Interpretation ABG results: PT/INR, D-dimer PT 17.2 Seconds (9.4-12.1) H 01/01/18 09:30 Consult Discharge Plan - Plan Referrals: Adrienne Agrawal, [employer]IVER [Partnered Physician] - (Office will call patient at home with follow appointment) [place],PCP [Primary Care Provider] - 01/06/18 2:30 pm (this is with the cary team at the [facility]) Prescriptions: Apixaban [Eliquis] 5 mg PO BID #60 tablet (4) HTN (hypertension) Qualifiers: Hypertension type: essential hypertension Qualified Code(s): I10 - Essential (primary) hypertension
[2018-01-04] MEDS: Acetaminophen 325 MG TABLET PO PRN (19:34)
[2018-01-05] MEDS: Ipratropium Neb 0.5 MG NEBULIZER IH SCH ×4 (05:03→22:39)
[2018-01-05] MEDS: Levalbuterol Neb 1.25 MG/3 ML IH SCH ×4 (05:03→22:39)
[2018-01-05] MEDS: Famotidine 20 MG TABLET PO SCH ×2 (06:03→15:30)
[2018-01-05] MEDS: *HR* HYDROcodone/Acet 5/325 mg TABLET PO PRN ×3 (06:06→20:15)
[2018-01-05] MEDS: Metoprolol XL (24 HR) Succ 50 MG TAB.ER.24H PO SCH ×2 (08:03→20:14)
[2018-01-05] MEDS: Furosemide 40 MG/4 ML VIAL IVP SCH (08:03)
[2018-01-05] MEDS: *HR* Amiodarone 200 MG TABLET PO SCH ×2 (08:04→20:14)
[2018-01-05] MEDS: Cholecalciferol (D-3) 1,000 UNIT TABLET PO SCH (08:04)
[2018-01-05] MEDS: predniSONE 20 MG TABLET PO SCH ×3 (08:05→20:18)
[2018-01-05] MEDS: Aspirin Enteric Coated 81 MG Tablet PO SCH (08:05)
[2018-01-05] MEDS: ALPRAZolam 0.25 MG TABLET PO PRN ×2 (08:05→15:30)
[2018-01-05] MEDS: Apixaban 5 MG TABLET PO SCH ×2 (08:05→20:16)
[2018-01-05] MEDS: Insulin LISPRO 300 UNITS/3 ML VIAL SQ SCH ×3 (08:07→17:07)
[2018-01-05] MEDS: Potassium Chloride Elixir 20 MEQ/15 ML UDC PO SCH (08:10)
--- NOTE | 2018-01-05 11:43 | Cardiology Progress Note ---
Date of Encounter: 01/05/18 Time of Encounter: 11:30 Assessment and Plan (1) NSTEMI (non-ST elevated myocardial infarction) Current Visit: Yes Status: Acute Peak troponin 2.56 (at NM) with downward trend. Dynamic ECG changes noted on admission. TTE revealed newly reduced EF at 30-35%. [facility] completed and he was found to have 99% stenosis in his proximal LAD. He received PTCA and LUCY with good results. There was diffuse 40% stenosis in the LCx artery, 30% stenosis in the pRCA, and 40% stenosis in the mRCA remaining. He denies chest pain. No complication from procedure. No complications from right femoral access site. Importance of DAPT with asa and plavix uninterrupted for minimum of one year discussed and he voiced understanding. Continue statin and BB. Activity restrictions reviewed.Cardiac rehab ordered. RLQ abd pain resolved. No hematoma palpated. Hgb stable. It is noted that re-peat TTE showed reduced EF at 10-15%. Patient denies recurrent chest pain. EKG showed atrial fibrillation with RVR with non-specific T wave changes. May be secondary to persistent atrial fibrillation with RVR. Re- peat EKG ordered today. No further testing at this time. (2) Atrial fibrillation with RVR Current Visit: Yes Status: Acute New diagnosis of atrial fibrillation with RVR; chronicity unclear. Patient reports ongoing symptoms for the past 3 weeks. ECG upon arrival to ED shows afib with RVR with rate 122 BPM, started on IV cardizem gtt. TSH normal. 12 hour tele: avg HR=99 bpm. HR improved. Continue Toprol 150 [address] BID. Discussed with Dr. Vadim Rivera, recommended adding oral amiodarone load. We will plan for DIONICIO/DCCV tomorrow. Presently, CHADs Vasc2= 3 (HTN, CAD, CHF). I discussed clinical transformation specialist anticoagulation with NOAC vs coumadin. He agreed to NOAC. He will require triple therapy due to PCI this admission. Voiced understanding of increased risk of bleeding. Can consider discontinuing asa in one month. Eliquis started during stay. NPO after midnight for DIONICIO/DCCV 01/06/18. (3) CHF (congestive heart failure) Current Visit: Yes Status: Acute Presented with acute CHFrEF. TTE reviewed LVEF 30-35%. Not all LV wall segments are optimally visualized. Mildly dilated left ventricle. Indeterminate diastolic function. RV is mildly dilated and mildly hypokinetic. Mild-moderate mitral regurgitation. Moderate tricuspid regurgitation. Mild pulmonary hypertension. The IVC is dilated. There is a small pericardial effusion present most prominent near the border of the RA. There is no echocardiographic evidence of tamponade. Re-peat TTE shows no pericardial effusion. EF reduced to 10-15%. Life vest on patient. Seen to have small runs NSVT throughout stay. One staci seen in last 24 hours. BLE edema up to knees. Recommend continued IV diuresis. Add BLE camille-wraps. Recommend 1.5L fluid restriction and low sodium diet. On bb and aceI. Continue strict I&O and daily weights. CHF education reviewed. Qualifiers: Heart failure type: unspecified Heart failure chronicity: acute Qualified Code(s): I50.9 - Heart failure, unspecified Discussion w patient/family: The assessment and plan as outlined above was discussed with the patient and/or family members who expressed understanding and agreement. All questions were answered. Thank you for involving us in the care of your patient. Please call with any questions. Subjective Principal diagnosis: acute systolic CHF, atrial fibrillation with RVR Interval history: Mr. Nguyen denies chest pain. Continues to have BLE edema. Reports pain in abdomen has resolved. Denies chest pain. Objective Vital Signs, Last 4 Hours Temp Pulse Resp BP Pulse Ox 01/05/18 11:14 97.7 F 84 18 104/83 96 01/05/18 10:23 18 98 01/05/18 08:11 97.6 F 91 18 105/88 95 General: Conversant, No Apparent Distress HEENT: Atraumatic, Normocephaly, Mucus Membranes Moist Neck: No JVD, Normal carotid pulses Cardiac: Other (Irregularly irregular) Lungs: Normal Breath Sounds, No Wheeze, Rales, Rhonchi Neuro: Alert and responsive, No focal deficits noted Abdomen: Soft, Non-Tender Skin: No rashes noted on visualized skin Musculoskeletal: No Chest Wall Tenderness Extremities: No Clubbing, No Cyanosis, Normal Pulses, Other (2+ BLE edema) Results 01/04/18 11:02 01/04/18 05:08 - Imaging and Cardiology Echo: report reviewed - EKG Interpretation EKG results cardiology: personally reviewed Consult Discharge Plan - Plan Referrals: Adrienne Agrawal, ANA MARIA [Partnered Physician] - (Office will call patient at home with follow appointment) [facility]Primary Care Provider[facility] - 01/14/18 2:00 pm (this is with the cary team at the [facility]) Prescriptions: Apixaban [Eliquis] 5 mg PO BID #60 tablet
[2018-01-05] MEDS: Loratadine 10 MG TABLET PO SCH (14:17)
[2018-01-05] MEDS ORDERED: Furosemide 40 MG/4 ML VIAL IVP SCH (17:00)
[2018-01-05] MEDS: Acetylcysteine 10% 2 ML INHSOL IH SCH ×2 (17:07→22:40)
--- NOTE | 2018-01-05 17:34 | Internal Med Progress Note ---
Hospitalist Progress Note - Encounter Date of Encounter: 01/05/18 Time of Encounter: 17:28 - Subjective Interval History: Patient had no acute events overnight. He states that he is feeling "good." He has been walking around the halls. Nursing staff reports some increased secretions, and he notes something "caught in throat." He denies SOB or respiratory distress. He denies fever, chills, chest pain, nausea, vomiting, or abdominal pain. He has no other complaints at this time. - Exam Vitals: Temp Pulse Resp BP Pulse Ox 97.7 F 85 18 101/79 94 01/05/18 11:14 01/05/18 16:21 01/05/18 16:39 01/05/18 16:39 01/05/18 16:39 Exam: Gen - Awake, alert, no acute distress HEENT - NCAT, PERRLA, EOMI, hearing grossly intact, oropharynx benign CV - RRR, normal S1 and S2, no M/R/G, 1+ BLE edema Resp - Normal WOB, CTAB except few crackles at bases, no W/R/R GI - Soft, NT/ND, no masses, normal bowel sounds, no HSP Skin - Warm, dry, no rashes/lesions/ulcers Psych - Normal mood and affect, no depression or anxiety - Assessment and Plan (1) NSTEMI (non-ST elevated myocardial infarction) Current Visit: Yes Status: Acute Assessment and Plan: Status post [facility] -PCI/DESto LAD on 12/30/2017. there was diffuse 40% stenosis in the LCx artery, 30% stenosis in the pRCA, and 40% stenosis in the mRCA remaining. Continue statin, beta aye, dual antiplatelet therapy with aspirin and Plavix uninterrupted for minimum 1 year cardiac rehabilitation. Continue Eliquis. No active chest pain 01/04-same as above. Continue aspirin and Plavix. Continue Eliquis for atrial fibrillation. LifeVest in place for poor ejection fraction. He will need cardiac rehabilitation. Cardiology following at this point. He is on low-dose FOREIGN inhibitor's also starting today. 01/05 - S/P PCI to pLAD. Continue aspirin, plavix, ACEi, beta aye, statin, and eliquis. (2) Atrial fibrillation with RVR Current Visit: Yes Status: Acute Assessment and Plan: New onset secondary to underlying ischemic cardiac disease. Still tachycardic heart rate in 120s. Increased Toprol XL 150 mg by mouth twice a day by cardiology. Now Heparin drip off. Continue Eliquis. CHADs Vasc2= 3 (HTN, CAD , CHF). Goal for heart rate below 100 at rest prior to discharge. Plan to discharge patient possibly tomorrow if heart rate reasonably controlled 01/04-continues to be uncontrolled and a challenge. Toprol increased to 150 twice a day yesterday. We will follow recommend she from cardiology. Planning on adding amiodarone as per their consult follow-up. If no improvement today that he will need cardioversion. He continues to be tachycardic in the 110 to 115 range. Ideally they would recommend heart rate controlled 100bpm prior to discharge. He is on anticoagulant with Eliquis 01/05 - Cardiology consulted; appreciate input. Rate is better controlled, but still in Afib. Continue metoprolol and eliquis. Cardiology planning on cardioversion tomorrow. (3) Acute systolic CHF (congestive heart failure) Current Visit: Yes Status: Acute Assessment and Plan: Newly diagnosed. Echocardiogram EF 30-35%, mildly dilated LV and RV and mildly hypokinetic, mild to moderate MR, moderate TR, mild pulmonary hypertension, IVC dilated, a small pericardial effusion. IV Lasix 40 mg twice a day continue as patient has negative balance more than 1 L, strict I&O's, daily weight, fluid restriction less 1 .5 L per day. Will consider adding FOREIGN inhibitor a BP allows after rate control. CHF education given 01/04-acute systolic congestive heart failure with reduced ejection fraction. Recent LVEF 30-35% on TTE. Most likely due to coronary artery disease and myocardial infarction. Continue on Lasix IV as well as fluid restriction. Starting FOREIGN inhibitor today and continue on beta aye. Cardiology following 01/05 - Cardiology consulted; appreciate input. Repeat ECHO showed EF 10-15%; cardiology planning on cardioversion tomorrow as per above. Continues to diurese well on lasix 80 mg IV BID. Continue life vest. Continue fluid restriction. Continue ACEi and beta aye. Added guaifenesin, claritin, and inhaled mucomyst to help with secretions. Continue nebulizer treatments. SW working on coordinating [facility] benefits. (4) COPD exacerbation Current Visit: Yes Status: Acute Assessment and Plan: History of COPD. stopped IV Solu-Medrol, started prednisone 20 mg twice a day with tapering dose and now on once a day, DuoNeb, Levaquin. Legionella antigen and strep pneumoniae antigen negative. No growth in blood culture. Oxygen supplementation. Leukocytosis-trending up white count even on antibiotic. Most likely reactive leukocytosis due to steroid. Monitor CBC. 01/05 - Continue prednisone taper. Continue respiratory support as per above. (5) HTN (hypertension) Current Visit: Yes Status: Chronic Assessment and Plan: Close monitoring of blood pressure on current medication. Will consider adding FOREIGN inhibitor if blood pressure allows 01/04-continue current medications. FOREIGN inhibitor added at low dose. 01/05 - Now normotensive. Continue current medications. (6) Electrolyte imbalance Current Visit: Yes Status: Resolved Assessment and Plan: Normal potassium. Replacement and monitor. 01/05 - Resolved. Recheck BMP in AM. (7) DVT prophylaxis Current Visit: Yes Status: Acute Assessment and Plan: Continue eliquis. 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 Severe global LV systolic dysfunction. EF 10-15% Severe biatrial enlargement. No pericardial effusion. Severe RV enlargement and dysfunction. Left Ventricular Wall Motion: Rest Echo Findings The apex, apical inferior, mid inferior, basal inferior, apical anterior, mid anterior, basal anterior, apical septal, mid inferior septal, basal inferior septal, apical lateral, mid anterior lateral, basal anterior lateral, mid anterior septal, mid inferior lateral, basal anterior septal and basal inferior lateral olivas were hypokinetic. Findings: Study Quality * Technically adequate exam. ECG Findings * Atrial fibrillation. Left Ventricle * LVEF 10-15%. * Mildly dilated left ventricle. * Indeterminate diastolic function. * Severe left ventricular systolic dysfunction. Right Ventricle * Moderately dilated right ventricle. * Severe right ventricular hypokinesis. Left Atrium * Severely dilated left atrium. Right Atrium * Severely dilated right atrium. Pericardium * The pericardium appears normal. - VTE Contraindication No Overlap Therapy: Admin of oral Factor Xa Inhibitor Consult Discharge Plan - Plan Referrals: Adreinne Agrawal, GUIDANCE AND CONTROL SYSTEM ENGINEER [Partnered Physician] - (Office will call patient at home with follow appointment) [place],PCP [Primary Care Provider] - 01/14/18 2:00 pm (this is with the cary team at the [facility]) Prescriptions: Apixaban [Eliquis] 5 mg PO BID #60 tablet (5) HTN (hypertension) Qualifiers: Hypertension type: essential hypertension Qualified Code(s): I10 - Essential (primary) hypertension
[2018-01-05] MEDS: Melatonin 3 MG TABLET PO SCH (20:13)
[2018-01-06] MEDS: Ipratropium Neb 0.5 MG NEBULIZER IH SCH ×4 (04:31→22:42)
[2018-01-06] MEDS: Levalbuterol Neb 1.25 MG/3 ML IH SCH ×4 (04:31→22:42)
[2018-01-06] MEDS: Acetylcysteine 10% 2 ML INHSOL IH SCH ×4 (04:31→22:42)
[2018-01-06 06:07] LABS: Basophils % 0.2 %; Eosinophils % 0.1 %; Hematocrit 42.8 % (37.5-50.1); Hemoglobin 14.3 g/dL (12.9-16.9); Immature Granulocytes % 2.2 % (0-4); Lymphocytes # 2.2 K/mcL (0.6-4.6); Lymphocytes % 11.4 %; Mean Corpuscular HGB Conc 33.4 g/dL (31.6-35.5); Mean Corpuscular Hemoglobin 30.6 pg (28.0-33.3); Mean Corpuscular Volume 91.5 fL (83.0-100.0); Monocytes % 10.4 %; Neutrophils # 14.6 K/mcL (1.6-8.9); Platelet Count 416 K/mcL (140-400); Red Blood Count 4.68 M/mcL (4.19-5.50); Red Cell Distribution Width 14.8 % (11.5-14.5); Segmented Neutrophils % 75.7 %
[2018-01-06 06:30] LABS: BUN/Creatinine Ratio 40 (6-26); Blood Urea Nitrogen 53 mg/dL (8-23); Calcium 9.1 mg/dL (8.6-10.3); Carbon Dioxide 33 mEq/L (23-29); Chloride 95 mEq/L (98-107); Glucose 118 mg/dL (70-105); Osmolality,Calculated 303 (280-300); Potassium 4.1 mEq/L (3.5-5.1); Sodium 139 mEq/L (136-145); eGFR For Non-African Americans 55 (> 60)
[2018-01-06] MEDS: Insulin LISPRO 300 UNITS/3 ML VIAL SQ SCH ×3 (07:13→18:26)
--- NOTE | 2018-01-06 07:33 | Internal Med Progress Note ---
Hospitalist Progress Note - Encounter Date of Encounter: 01/06/18 Time of Encounter: 07:30 - Subjective Interval History: Patient had no acute events overnight. He states that he feels well. He states that breathing is "good." He denies SOB or respiratory distress. He denies fever, chills, chest pain, nausea, vomiting, or abdominal pain. He has no other complaints at this time. - Exam Vitals: Temp Pulse Resp BP Pulse Ox 98.0 F 81 16 107/75 91 01/06/18 07:08 01/06/18 07:08 01/06/18 07:08 01/06/18 07:08 01/06/18 07:08 Exam: Gen - Awake, alert, no acute distress HEENT - NCAT, PERRLA, EOMI, hearing grossly intact, oropharynx benign CV - RRR. normal S1 and S2, no M/R/G, 1+ BLE edema Resp - Normal WOB, CTAB, no W/R/R GI - Soft, NT/ND, no masses, normal bowel sounds, no HSP Skin - Warm, dry, no rashes/lesion/ulcers Psych - Normal mood and affect, no depression or anxiety - Assessment and Plan (1) NSTEMI (non-ST elevated myocardial infarction) Current Visit: Yes Status: Acute Assessment and Plan: Status post [facility] -PCI/DESto LAD on 12/30/2017. there was diffuse 40% stenosis in the LCx artery, 30% stenosis in the pRCA, and 40% stenosis in the mRCA remaining. Continue statin, beta aye, dual antiplatelet therapy with aspirin and Plavix uninterrupted for minimum 1 year cardiac rehabilitation. Continue Eliquis. No active chest pain 01/04-same as above. Continue aspirin and Plavix. Continue Eliquis for atrial fibrillation. LifeVest in place for poor ejection fraction. He will need cardiac rehabilitation. Cardiology following at this point. He is on low-dose FOREIGN inhibitor's also starting today. 01/05 - S/P PCI to pLAD. Continue aspirin, plavix, ACEi, beta aye, statin, and eliquis. 01/06 - S/P PCI to pLAD. Continue aspirin, plavix, ACEi, beta aye, statin, and eliquis. (2) Atrial fibrillation with RVR Current Visit: Yes Status: Acute Assessment and Plan: New onset secondary to underlying ischemic cardiac disease. Still tachycardic heart rate in 120s. Increased Toprol XL 150 mg by mouth twice a day by cardiology. Now Heparin drip off. Continue Eliquis. CHADs Vasc2= 3 (HTN, CAD , CHF). Goal for heart rate below 100 at rest prior to discharge. Plan to discharge patient possibly tomorrow if heart rate reasonably controlled 01/04-continues to be uncontrolled and a challenge. Toprol increased to 150 twice a day yesterday. We will follow recommend she from cardiology. Planning on adding amiodarone as per their consult follow-up. If no improvement today that he will need cardioversion. He continues to be tachycardic in the 110 to 115 range. Ideally they would recommend heart rate controlled 100bpm prior to discharge. He is on anticoagulant with Eliquis 01/05 - Cardiology consulted; appreciate input. Rate is better controlled, but still in Afib. Continue metoprolol and eliquis. Cardiology planning on cardioversion tomorrow. 01/06 - Cardiology consulted; appreciate input. Rate remains controlled. Continue metoprolol and eliquis. Cardiology planning on cardioversion today. (3) Acute systolic CHF (congestive heart failure) Current Visit: Yes Status: Acute Assessment and Plan: Newly diagnosed. Echocardiogram EF 30-35%, mildly dilated LV and RV and mildly hypokinetic, mild to moderate MR, moderate TR, mild pulmonary hypertension, IVC dilated, a small pericardial effusion. IV Lasix 40 mg twice a day continue as patient has negative balance more than 1 L, strict I&O's, daily weight, fluid restriction less 1 .5 L per day. Will consider adding FOREIGN inhibitor a BP allows after rate control. CHF education given 01/04-acute systolic congestive heart failure with reduced ejection fraction. Recent LVEF 30-35% on TTE. Most likely due to coronary artery disease and myocardial infarction. Continue on Lasix IV as well as fluid restriction. Starting FOREIGN inhibitor today and continue on beta aye. Cardiology following 01/05 - Cardiology consulted; appreciate input. Repeat ECHO showed EF 10-15%; cardiology planning on cardioversion tomorrow as per above. Continues to diurese well on lasix 80 mg IV BID. Continue life vest. Continue fluid restriction. Continue ACEi and beta aye. Added guaifenesin, claritin, and inhaled mucomyst to help with secretions. Continue nebulizer treatments. FANI working on coordinating [employer] benefits. 01/06 - Cardiology consulted; appreciate input. CXR with cardiomegaly, otherwise unremarkable. Repeat ECHO showed EF 10-15%; cardiology planning on cardioversion today as per above. Continues to diurese well on lasix 80 mg IV BID; will titrate down to 40 mg IV BID as renal function worsening. Continue life vest. Continue fluid restriction. Continue ACEi and beta aye. Continue guaifenesin, claritin, and inhaled mucomyst to help with secretions. Continue nebulizer treatments. FANI working on coordinating [facility] benefits. (4) COPD exacerbation Current Visit: Yes Status: Acute Assessment and Plan: History of COPD. stopped IV Solu-Medrol, started prednisone 20 mg twice a day with tapering dose and now on once a day, DuoNeb, Levaquin. Legionella antigen and strep pneumoniae antigen negative. No growth in blood culture. Oxygen supplementation. Leukocytosis-trending up white count even on antibiotic. Most likely reactive leukocytosis due to steroid. Monitor CBC. 01/05 - Continue prednisone taper. Continue respiratory support as per above. 01/06 - Respiratory status stable this AM; no complaints of respiratory distress. Continue prednisone taper. Continue respiratory support as per above. (5) HTN (hypertension) Current Visit: Yes Status: Chronic Assessment and Plan: Close monitoring of blood pressure on current medication. Will consider adding FOREIGN inhibitor if blood pressure allows 01/04-continue current medications. FOREIGN inhibitor added at low dose. 01/05 - Now normotensive. Continue current medications. 01/06 - Normotensive. Continue current medications. (6) Electrolyte imbalance Current Visit: Yes Status: Resolved Assessment and Plan: Normal potassium. Replacement and monitor. 01/05 - Resolved. Recheck BMP in AM. 01/06 - Resolved. Recheck BMP in AM. (7) DVT prophylaxis Current Visit: Yes Status: Acute Assessment and Plan: Continue eliquis. - Time Spent with Patient Total time spent is greater than 50% in coordination of care (as documented) at patient's floor/unit and/or counseling patient: less than 15 minutes Plan of Care Discussed with: patient (Nurse) Internal Medicine: Result - Labs CBC & Chem 7: 01/06/18 05:34 01/06/18 05:34 Labs: Short CBC 01/06/18 Range/Units 05:34 WBC 19.2 H (4.3-11.1) K/mcL Hgb 14.3 D (12.9-16.9) g/dL Hct 42.8 (37.5-50.1) % Plt Count 416 H (140-400) K/mcL Neutrophils # 14.6 H (1.6-8.9) K/mcL BMP 01/06/18 05:34 Sodium 139 Potassium 4.1 Chloride 95 L Carbon Dioxide 33 H BUN 53 H Creatinine 1.32 H Glucose 118 H Calcium 9.1 - ABG Interpretation ABG results: PT/INR, D-dimer PT 17.2 Seconds (9.4-12.1) H 01/01/18 09:30 - Impressions Impressions Chest X-Ray 01/05/18 17:04 IMPRESSION: 1. No active pulmonary disease. 2. Stable cardiomegaly without overt failure. D/ / Theo Guallpa MD / Theo Guallpa MD Interpreting Provider: Theo Guallpa MD - VTE Documentation of Mechanical Device: Graduated compression elastic hosiery Contraindication No Overlap Therapy: Admin of oral Factor Xa Inhibitor Consult Discharge Plan - Plan Referrals: Adrienne Agrawal ADVERTISING SALES CONSULTANT [Partnered Physician] - (Office will call patient at home with follow appointment) [place],PCP [Primary Care Provider] - 01/14/18 2:00 pm (this is with the green team at the [facility]) Prescriptions: Apixaban [Eliquis] 5 mg PO BID #60 tablet (5) HTN (hypertension) Qualifiers: Hypertension type: essential hypertension Qualified Code(s): I10 - Essential (primary) hypertension
[2018-01-06] MEDS ORDERED: Furosemide 40 MG/4 ML VIAL IVP SCH (09:00)
[2018-01-06] MEDS: Apixaban 5 MG TABLET PO SCH ×2 (09:08→22:00)
[2018-01-06] MEDS: Cholecalciferol (D-3) 1,000 UNIT TABLET PO SCH (09:09)
[2018-01-06] MEDS: Loratadine 10 MG TABLET PO SCH (09:09)
[2018-01-06] MEDS: predniSONE 20 MG TABLET PO SCH (09:09)
[2018-01-06] MEDS: Metoprolol XL (24 HR) Succ 50 MG TAB.ER.24H PO SCH ×2 (09:09→22:00)
[2018-01-06] MEDS: Famotidine 20 MG TABLET PO SCH ×2 (09:09→18:26)
[2018-01-06] MEDS: Aspirin Enteric Coated 81 MG Tablet PO SCH (09:09)
[2018-01-06] MEDS: *HR* Amiodarone 200 MG TABLET PO SCH ×2 (09:10→22:00)
[2018-01-06] MEDS: Potassium Chloride Elixir 20 MEQ/15 ML UDC PO SCH (09:10)
--- NOTE | 2018-01-06 09:57 | Cardiology Progress Note ---
Date of Encounter: 01/06/18 Time of Encounter: 09:54 Assessment and Plan (1) NSTEMI (non-ST elevated myocardial infarction) Current Visit: Yes Status: Acute Peak troponin 2.56 (at NH) with downward trend. Dynamic ECG changes noted on admission. TTE revealed newly reduced EF at 30-35%. [facility] completed and he was found to have 99% stenosis in his proximal LAD. He received PTCA and LUCY with good results. There was diffuse 40% stenosis in the LCx artery, 30% stenosis in the pRCA, and 40% stenosis in the mRCA remaining. He denies recurrent chest pain. No complication from procedure. No complications from right femoral access site. Importance of DAPT with asa and plavix uninterrupted for minimum of one year discussed and he voiced understanding. Continue statin and BB. Activity restrictions reviewed. Cardiac rehab ordered. It was noted that re-peat TTE showed reduced EF at 10-15%. Patient denies recurrent chest pain. EKG showed atrial fibrillation with RVR with non-specific T wave changes. May be secondary to persistent atrial fibrillation with RVR. Re- peat EKG showed no acute ST changes. No further testing at this time. (2) Atrial fibrillation with RVR Current Visit: Yes Status: Acute New diagnosis of atrial fibrillation with RVR; chronicity unclear. Patient reports ongoing symptoms for the past 3 weeks. ECG upon arrival to ED shows afib with RVR with rate 122 BPM, started on IV cardizem gtt. TSH normal. 12 hour tele: avg HR=84 bpm. HR improved and he is now well rate controlled on amiodarone. Recommend decreaseing to 200 mg BID at D/c. WIll decrease to 200 mg daily after 4 weeks. Continue Toprol 150 mg BID. We will cancel TTE/DCCV since he is well rate controlled. With severe bi-atrial enlargement his DCCV would likely be unsuccessful. Presently, CHADs Vasc2= 3 (HTN, CAD, CHF). He is tolerating eliquis. He will require triple therapy due to PCI this admission. Voiced understanding of increased risk of bleeding. Can consider discontinuing asa in one month. Eliquis started during stay. (3) CHF (congestive heart failure) Current Visit: Yes Status: Acute Presented with acute CHFrEF. TTE reviewed LVEF 30-35%. Not all LV wall segments are optimally visualized. Mildly dilated left ventricle. Indeterminate diastolic function. RV is mildly dilated and mildly hypokinetic. Mild-moderate mitral regurgitation. Moderate tricuspid regurgitation. Mild pulmonary hypertension. The IVC is dilated. There is a small pericardial effusion present most prominent near the border of the RA. There is no echocardiographic evidence of tamponade. Re-peat TTE shows no pericardial effusion. EF reduced to 10-15%. Life vest on patient. Seen to have small runs NSVT throughout stay. One staci seen in last 24 hours. BLE improved. Scr increased today. Agree with decreased lasix. Change to oral 40 mg P.O. BID. Continue BLE camille wraps. Recommend 1.5L fluid restriction and low sodium diet. Daily weights. CHF discussed with patient. On bb and aceI. Out-patient f/u will be coordinated with [facility]. Cardiology will sign off. Call with questions. Qualifiers: Heart failure type: systolic Heart failure chronicity: acute Qualified Code(s): I50.21 - Acute systolic (congestive) heart failure Discussion w patient/family: The assessment and plan as outlined above was discussed with the patient and/or family members who expressed understanding and agreement. All questions were answered. Thank you for involving us in the care of your patient. Please call with any questions. Subjective Principal diagnosis: acute systolic CHF, atrial fibrillation with RVR Interval history: Mr. Nguyen denies chest pain. C/o back pain. States that he has chronic back pain. Noted ecchymosis on left foot after camille bandage. Objective Vital Signs, Last 4 Hours Temp Pulse Resp BP Pulse Ox 01/06/18 09:19 97 20 95 01/06/18 07:08 98.0 F 81 16 107/75 91 General: Conversant, No Apparent Distress HEENT: Atraumatic, Normocephaly, Mucus Membranes Moist Neck: No JVD, Normal carotid pulses Cardiac: Reg Rate and Rhythm, Normal S1 and S2, No Murmur Lungs: Normal Breath Sounds, No Wheeze, Rales, Rhonchi Neuro: Alert and responsive, No focal deficits noted Abdomen: Soft, Non-Tender Skin: No rashes noted on visualized skin Musculoskeletal: No Chest Wall Tenderness Extremities: No Clubbing, No Cyanosis, Other (1+ pitting BLE edema improved. Left foot with eccymosis, pulses 1+DP and doppler PT. ) Results 01/06/18 05:34 01/06/18 05:34 Lab Results 01/06/18 01/06/18 05:34 05:34 WBC 19.2 H Hgb 14.3 D Hct 42.8 Plt Count 416 H Sodium 139 Potassium 4.1 Chloride 95 L Carbon Dioxide 33 H BUN 53 H Creatinine 1.32 H Glucose 118 H Calcium 9.1 - Imaging and Cardiology Chest Xray: report reviewed Echo: report reviewed Cardiac cath: report reviewed - EKG Interpretation EKG results cardiology: personally reviewed - VTE Documentation of Mechanical Device: Graduated compression elastic hosiery Contraindication No Overlap Therapy: Admin of oral Factor Xa Inhibitor Consult Discharge Plan - Plan Referrals: Adrienne Agrawal CNP [Partnered Physician] - (Office will call patient at home with follow appointment) NH,PCP [Primary Care Provider] - 01/14/18 2:00 pm (this is with the cary team at the [facility]) Prescriptions: Apixaban [Eliquis] 5 mg PO BID #60 tablet
[2018-01-06] MEDS: *HR* HYDROcodone/Acet 5/325 mg TABLET PO PRN ×2 (10:12→18:25)
[2018-01-06] MEDS: Furosemide 40 MG TABLET PO SCH (18:26)
[2018-01-06] MEDS: Melatonin 3 MG TABLET PO SCH (22:00)
[2018-01-06] MEDS: ALPRAZolam 0.25 MG TABLET PO PRN (22:00)
[2018-01-06] MEDS: Acetaminophen 325 MG TABLET PO PRN (22:06)
[2018-01-07] MEDS: *HR* HYDROcodone/Acet 5/325 mg TABLET PO PRN ×2 (00:23→07:53)
[2018-01-07] MEDS: Levalbuterol Neb 1.25 MG/3 ML IH SCH (03:47)
[2018-01-07] MEDS: Ipratropium Neb 0.5 MG NEBULIZER IH SCH (03:47)
[2018-01-07] MEDS: Acetylcysteine 10% 2 ML INHSOL IH SCH (03:48)
[2018-01-07 04:19] LABS: Basophils % 0.2 %; Eosinophils % 0.2 %; Hematocrit 43.5 % (37.5-50.1); Hemoglobin 14.4 g/dL (12.9-16.9); Immature Granulocytes % 1.5 % (0-4); Lymphocytes # 4.3 K/mcL (0.6-4.6); Mean Corpuscular HGB Conc 33.1 g/dL (31.6-35.5); Mean Corpuscular Hemoglobin 30.3 pg (28.0-33.3); Mean Corpuscular Volume 91.4 fL (83.0-100.0); Mean Platelet Volume 10.9 fL (9.4-12.4); Monocytes # 2.5 K/mcL (0.0-1.3); Monocytes % 12.2 %; Neutrophils # 13.2 K/mcL (1.6-8.9); Platelet Count 487 K/mcL (140-400); Red Blood Count 4.76 M/mcL (4.19-5.50); Segmented Neutrophils % 64.9 %
[2018-01-07 04:37] LABS: BUN/Creatinine Ratio 46 (6-26); Blood Urea Nitrogen 56 mg/dL (8-23); Calcium 8.7 mg/dL (8.6-10.3); Carbon Dioxide 34 mEq/L (23-29); Chloride 97 mEq/L (98-107); Glucose 115 mg/dL (70-105); Osmolality,Calculated 302 (280-300); Potassium 4.2 mEq/L (3.5-5.1); Sodium 138 mEq/L (136-145); eGFR For Non-African Americans > 60 (> 60)
[2018-01-07] MEDS: Potassium Chloride Elixir 20 MEQ/15 ML UDC PO SCH (07:32)
[2018-01-07] MEDS: Cholecalciferol (D-3) 1,000 UNIT TABLET PO SCH (07:33)
[2018-01-07] MEDS: Aspirin Enteric Coated 81 MG Tablet PO SCH (07:33)
[2018-01-07] MEDS: Famotidine 20 MG TABLET PO SCH (07:33)
[2018-01-07] MEDS: *HR* Amiodarone 200 MG TABLET PO SCH (07:36)
[2018-01-07] MEDS: Furosemide 40 MG TABLET PO SCH (07:37)
[2018-01-07] MEDS: Metoprolol XL (24 HR) Succ 50 MG TAB.ER.24H PO SCH (07:37)
[2018-01-07] MEDS: Loratadine 10 MG TABLET PO SCH (07:38)
[2018-01-07] MEDS: Apixaban 5 MG TABLET PO SCH (07:38)
[2018-01-07] MEDS: predniSONE 20 MG TABLET PO SCH (07:39)
[2018-01-07 07:53] VITALS: BP 117/97
--- NOTE | 2018-01-07 08:03 | Discharge Summary ---
- NOTES TO OUTPATIENT PROVIDER Notes to Outpatient Provider: Follow up with PCP in 2-3 days after discharge. Recheck BMP and CBC at that time. Follow up with cardiology as directed. Date of Encounter: 01/07/18 Time of Encounter: 08:01 - Discharge Diagnosis (1) NSTEMI (non-ST elevated myocardial infarction) Priority: Primary Status: Acute (2) Atrial fibrillation with RVR Priority: Secondary Status: Acute (3) Acute systolic CHF (congestive heart failure) Priority: Secondary Status: Acute (4) COPD exacerbation Priority: Secondary Status: Acute (5) HTN (hypertension) Priority: Secondary Status: Chronic Qualifiers: Hypertension type: essential hypertension Qualified Code(s): I10 - Essential (primary) hypertension (6) Electrolyte imbalance Priority: Secondary Status: Resolved (7) DVT prophylaxis Priority: Secondary Status: Acute Hospital course: Mr. Arroyo is a 62 year old male admitted for NSTEMI, acute systolic CHF, COPD exacerbation, and new Afib with RVR. Patient was admitted to step down unit with telemetry. He was started on IV lasix, IV solumedrol, duonebs, heparin drip, and cardizem drip. ECHO showed EF 30-35%, mildly dilated L, indeterminate diastolic dysfunction, mildly dilated and hypokinetic RV, mild- moderate mitral regurgitation, moderate tricuspid regurgitation, mild pulmonary hypertension, dilated IVC, and small pericardial effusion. Cardiology was consulted. Troponin peaked at 2.56 with downward trend. He was taken for LHC, and he was found to have 99% stenosis in his proximal LAD. He received PTCA and LUCY with good results. There was diffuse 40% stenosis in the LCx artery, 30 % stenosis in the pRCA, and 40% stenosis in the mRCA remaining. He was started on triple therapy. He was weaned off cardizem drip and started on amiodarone. He was started on eliquis. He was started on ACEi and beta aye. He was given life vest. He diuresed well and was transitioned to PO lasix 40 mg BID. Repeat ECHO showed EF of 10-15%. He will be discharged on prednisone taper. He will follow up with PCP in 2-3 days after discharge. Repeat BMP and CBC can be checked at that time. He will follow up with cardiology as directed. Patient has met maximum benefit of this hospitalization and will be discharged home in stable condition. Discharge discussed with: patient, nurse, other (Pharmacist) - Time Spent with Patient Total time spent providing and/or coordinating discharge services: Greater than 30 minutes - Discharge Medications Prescriptions: Albuterol Sulfate [Ventolin Hfa] 2 puff IH Q6H PRN #1 hfa.aer.ad PRN Reason: Dyspnea Amiodarone [Cordarone] 200 mg PO BID 7 Days #14 tablet Apixaban [Eliquis] 5 mg PO BID #60 tablet Aspirin Enteric Coated [Aspirin EC] 81 mg PO DAILY 7 Days #7 tablet. Atorvastatin [Lipitor] 80 mg PO QPM 7 Days #14 tablet Clopidogrel [Plavix] 75 mg PO DAILY 7 Days #7 tablet Furosemide [Lasix] 40 mg PO BIDDIURETIC 7 Days #14 tablet Lisinopril [Zestril] 2.5 mg PO DAILY 14 Days #7 tablet Metoprolol XL (24 HR) Succ [Toprol Xl] 150 mg PO BID 7 Days #42 tab.er.24h predniSONE [PredniSONE] See Taper PO DAILY 8 Days #12 tablet Home Medications: Acetaminophen [Tylenol] 650 mg PO Q6HR PRN 12/29/17 [History] Albuterol Neb [Proventil Neb] 2.5 mg IH TID PRN 12/29/17 [History] Cholecalciferol (D-3) [Vitamin D] 1,000 unit PO DAILY 12/29/17 [History] Omeprazole [PriLOSEC] 20 mg PO BIDAC 12/29/17 [History] Ranitidine HCl [Acid Land Lease Information Clerk] 150 mg PO BID 12/29/17 [History] Apixaban [Eliquis] 5 mg PO BID #60 tablet 12/31/17 [Rx] Albuterol Sulfate [Ventolin Hfa] 2 puff IH Q6H PRN #1 hfa.aer.ad 01/07/18 [Rx] Amiodarone [Cordarone] 200 mg PO BID 7 Days #14 tablet 01/07/18 [Rx] Aspirin Enteric Coated [Aspirin EC] 81 mg PO DAILY 7 Days #7 tablet. 01/07/18 [Rx] Atorvastatin [Lipitor] 80 mg PO QPM 7 Days #14 tablet 01/07/18 [Rx] Clopidogrel [Plavix] 75 mg PO DAILY 7 Days #7 tablet 08/08/18 [Rx] Furosemide [Lasix] 40 mg PO BIDDIURETIC 7 Days #14 tablet 01/07/18 [Rx] Lisinopril [Zestril] 2.5 mg PO DAILY 14 Days #7 tablet 01/07/18 [Rx] Metoprolol XL (24 HR) Succ [Toprol Xl] 150 mg PO BID 7 Days #42 tab.er.24h 01/07 [Rx] predniSONE [PredniSONE] See Taper PO DAILY 8 Days #12 tablet 01/07/18 [Rx] Allergies/Adverse Reactions: 3 Allergy/AdvReac Type Severity Reaction Status Date / Time No Known Allergies Allergy Verified 12/29/17 13:28 Date of admission: 12/30/17 10:17 Primary care physician: PCP ID Consults: 12/30/17 15:10 Consult to Cardiac Rehabilitation-Phase1 [CONS] Routine Comment: Reason for Consult: post op PCI Call Completed: Yes 12/31/17 09:44 Consult to [employer] [CONS] Stat Reason for SW Consult: ANTICOAGULATION AT D/C. PATIENT REPORTED HE NEEDS A RIDE FROM THE ID TO GET HIS VAN. AND PATIENT WAS ASKING REGARDING FOOD FINANCIAL ASSISTANCE. 01/05/18 16:44 Consult to Respiratory Therapy [CONS] Stat Reason for Consult: COPD, Increased Secretions Call Completed: No Discharging clinician: Rashard Alvarez Anticipated date of discharge: 01/07/18 - Constitutional Vitals: Temp Pulse Resp BP Pulse Ox 97.6 F 82 20 117/97 97 01/07/18 03:29 01/07/18 07:47 01/07/18 07:47 01/07/18 07:47 01/07/18 07:47 General appearance: Present: cooperative, A&O X 3, pleasant, no acute distress, obese, answers questions appropriately - Respiratory Respiratory exam: Present: CTAB. Absent: accessory muscle use, rales, rhonchi, wheezes Additional comments: Normal WOB - Cardiovascular Cardiovascular exam: Present: RRR, +S1, +S2. Absent: diastolic murmur, gallop, rubs, systolic murmur Additional comments: 1+ BLE edema - GI/Abdominal GI/Abdominal exam: Present: normal bowel sounds, soft. Absent: distended, hepatomegaly, mass, splenomegaly, tenderness - Psychiatric Psychiatric exam: Present: normal affect, normal mood. Absent: agitated, anxious, depressed - Skin Skin exam: Present: dry, intact, warm. Absent: cyanosis, rash - Patient Status Disposition: Home, Self-Care Condition: Good Functional capacity at discharge: independent ambulation Overall status at discharge: patient is progressing back to baseline - Discharge Instructions Follow Up With: Adrienne Agrawal CNP [Partnered Physician] - (Office will call patient at home with follow appointment) ID,PCP [Primary Care Provider] - 01/14/18 2:00 pm (this is with the cary team at the [facility]) Additional Instructions: Follow up with PCP in 2-3 days after discharge. Recheck BMP and CBC at that time. Follow up with cardiology as directed. - Diet and Activity Activity: as per the cardiac rehab, resume usual activities as tolerated Diet: diabetic diet, low fat, low cholesterol, low salt diet, other (Cardiac Diet, Fluid Restriction 1.5 L/day) - VTE Documentation of Mechanical Device: Graduated compression elastic hosiery Contraindication No Overlap Therapy: Admin of oral Factor Xa Inhibitor
[2018-01-07] MEDS: Insulin LISPRO 300 UNITS/3 ML VIAL SQ SCH (08:44)
--- NOTE | 2018-01-07 14:55 | Electrocardiograph Report ---
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
== END 2018-01-07 10:05 | disposition home or self-care (01) | DRG 246 ==
LOC: EMEROO 11:52 → 2ANU 11:52 → 2NNU 16:12 → SUATTDRO 12-30 10:17
PROVIDERS: ADMIT Internal Medicine; ATTEND Internal Medicine

== ENCOUNTER 2021-01-22 23:12 | Inpatient (IN) ==
[2021-01-23] MEDS ORDERED: Furosemide 40 MG in 0.9 % Sodium Chloride 50 ML IV SCH (00:15)
[2021-01-23] MEDS ORDERED: Furosemide 40 MG/4 ML VIAL IV ONE (00:15)
[2021-01-23 00:27] LABS: Basophils # 0.1 K/mcL (0.0-0.2); Basophils % 0.7 %; Eosinophils # 0.4 K/mcL (0.0-0.6); Eosinophils % 2.7 %; Hematocrit 45.2 % (37.5-50.1); Hemoglobin 14.7 g/dL (12.9-16.9); Immature Granulocytes % 0.5 % (0-4); Lymphocytes # 0.8 K/mcL (0.6-4.6); Lymphocytes % 5.8 %; Mean Corpuscular HGB Conc 32.5 g/dL (31.6-35.5); Mean Corpuscular Hemoglobin 33.4 pg (28.0-33.3); Mean Corpuscular Volume 102.7 fL (83.0-100.0); Mean Platelet Volume 10.9 fL (9.4-12.4); Monocytes # 0.8 K/mcL (0.0-1.3); Monocytes % 5.7 %; Neutrophils # 11.5 K/mcL (1.6-8.9); Platelet Count 382 K/mcL (140-400); Red Cell Distribution Width 14.5 % (11.5-14.5); Segmented Neutrophils % 84.6 %; White Blood Count 13.6 K/mcL (4.3-11.1)
[2021-01-23 01:01] LABS: Alanine Aminotransferase 16 Units/L (7-52); Albumin 3.7 g/dL (3.5-5.7); Albumin/Globulin Ratio 1.8 (1.1-2.2); Alkaline Phosphatase 98 Units/L (34-104); Aspartate Amino Transferase 37 Units/L (13-39); BUN/Creatinine Ratio 23 (6-26); Bilirubin,Direct 0.1 mg/dL (0.0-0.2); Bilirubin,Indirect 0.3 mg/dL (0.0-1.0); Bilirubin,Total 0.4 mg/dL (0.3-1.0); Blood Urea Nitrogen 24 mg/dL (8-23); Carbon Dioxide 36 mEq/L (23-29); Chloride 95 mEq/L (98-107); Globulin 2.1 g/dL (2.4-3.5); Glucose 105 mg/dL (70-105); Osmolality,Calculated 290 (280-300); Sodium 138 mEq/L (136-145); Total Protein 5.8 g/dL (6.4-8.9); eGFR For African Americans > 60 (> 60); eGFR For Non-African Americans > 60 (> 60)
[2021-01-23 01:02] LABS: Troponin I < 0.03 ng/mL (< 0.04)
[2021-01-23 01:35] LABS: INR 1.5; Prothrombin Time 16.6 Seconds (9.4-12.1)
[2021-01-23 01:37] LABS: Activated Partial Thrombo Time 37.4 Seconds (26.0-36.0)
[2021-01-23 02:59] LABS: ABG Base Excess 10 mEq/L (-2 to 3); ABG HCO3 40 mEq/L (21-27); ABG Oxygen Saturation 63 % (95-98); ABG PCO2 79 mmHg (35-45); ABG PH 7.32 pH Units (7.32-7.45); ABG PO2 38 mmHg (85-104); ABG TCO2 43 mEq/L (20-26)
[2021-01-23] MEDS ORDERED: Albuterol 2.5 MG/3 ML NEBULIZER IH PRN (03:32)
[2021-01-23] MEDS ORDERED: Naloxone 0.4 MG/ML INJ IVP PRN (03:35)
[2021-01-23] MEDS ORDERED: Ondansetron 4 MG/2 ML VIAL IVP PRN (03:35)
[2021-01-23] MEDS: Albuterol 2.5 MG/3 ML NEBULIZER IH SCH ×2 (04:10→08:26)
[2021-01-23] MEDS ORDERED: methylPREDNISolone 125 MG/2 ML VIAL IVP ONE (04:44)
[2021-01-23] MEDS ORDERED: NON-FORMULARY MEDICATION 1 EACH EACH (Alendronate Sodium [Fosamax] 70 MG Tablet) PO SCH (05:15)
[2021-01-23] MEDS: Gabapentin 400 MG CAPSULE PO SCH ×3 (08:43→23:15)
[2021-01-23] MEDS: *HR* Amiodarone 200 MG TABLET PO SCH (08:43)
[2021-01-23] MEDS: *HR* Rivaroxaban 10 MG TABLET PO SCH (08:44)
[2021-01-23] MEDS: Pyridoxine (B-6) 50 MG TABLET PO SCH (08:44)
[2021-01-23] MEDS: Spironolactone 25 MG TABLET PO SCH (08:44)
[2021-01-23] MEDS: Famotidine 20 MG TABLET PO SCH ×2 (08:44→18:07)
[2021-01-23] MEDS: Sennosides 8.6 MG TABLET PO SCH (08:44)
[2021-01-23] MEDS: Magnesium Oxide 400 MG TABLET PO SCH (08:44)
[2021-01-23] MEDS: Azithromycin 250 MG TABLET PO SCH (08:44)
[2021-01-23] MEDS: Furosemide 40 MG/4 ML VIAL IVP SCH (08:45)
[2021-01-23] MEDS ORDERED: Tiotropium 10 INH DOSE IH SCH (09:00)
[2021-01-23] MEDS ORDERED: Perflutren Lipid Microsphere 1.3 ML in 0.9 % Sodium Chloride 8.7 ML IVP PRN (10:40)
[2021-01-23] MEDS: *HR* Buprenorphine HCl 2 MG SUBLINGUAL TABLET SL SCH ×4 (11:22→23:15)
[2021-01-23] MEDS: Ipratropium/Albuterol Neb 3 ML IH SCH ×4 (11:27→22:55)
[2021-01-23 12:39] LABS: Adenovirus Not Detected (Not Detect); Bordetella Pertussis Not Detected (Not Detect); Chlamydophila pneumoniae Not Detected (Not Detect); Coronavirus 229E Not Detected (Not Detect); Coronavirus HKU1 Not Detected (Not Detect); Coronavirus NL63 Not Detected (Not Detect); Coronavirus OC43 Not Detected (Not Detect); Human Metapneumovirus Not Detected (Not Detect); Human Rhinovirus/Enterovirus Not Detected (Not Detect); Influenza A Subtype 2009 H1 Not Detected (Not Detect); Influenza B Not Detected (Not Detect); Mycoplasma pneumoniae Not Detected (Not Detect); Parainfluenza Virus 1 Not Detected (Not Detect); Parainfluenza Virus 2 Not Detected (Not Detect); Parainfluenza Virus 3 Not Detected (Not Detect); Parainfluenza Virus 4 Not Detected (Not Detect); Respiratory Syncytial Virus Not Detected (Not Detect); SARS-CoV-2 Not Detected (Not Detect)
[2021-01-23] MEDS: MethylPREDNISolone 40 MG/ML VIAL IVP SCH (18:07)
[2021-01-24 02:15] LABS: Basophils % 0.1 %; Hematocrit 42.2 % (37.5-50.1); Immature Granulocytes % 0.6 % (0-4); Lymphocytes # 0.4 K/mcL (0.6-4.6); Mean Corpuscular HGB Conc 33.2 g/dL (31.6-35.5); Mean Corpuscular Hemoglobin 33.4 pg (28.0-33.3); Mean Corpuscular Volume 100.7 fL (83.0-100.0); Mean Platelet Volume 10.7 fL (9.4-12.4); Monocytes # 1.1 K/mcL (0.0-1.3); Monocytes % 7.7 %; Neutrophils # 12.6 K/mcL (1.6-8.9); Platelet Count 382 K/mcL (140-400); Red Blood Count 4.19 M/mcL (4.19-5.50); Red Cell Distribution Width 13.9 % (11.5-14.5); Segmented Neutrophils % 88.6 %; White Blood Count 14.2 K/mcL (4.3-11.1)
[2021-01-24 02:29] LABS: Magnesium 1.9 mg/dL (1.6-2.6); Phosphorous 3.9 mg/dL (2.7-4.5)
[2021-01-24 02:30] LABS: Alanine Aminotransferase 12 Units/L (7-52); Albumin 3.4 g/dL (3.5-5.7); Albumin/Globulin Ratio 1.9 (1.1-2.2); Alkaline Phosphatase 81 Units/L (34-104); Aspartate Amino Transferase 17 Units/L (13-39); BUN/Creatinine Ratio 29 (6-26); Bilirubin,Total 0.4 mg/dL (0.3-1.0); Blood Urea Nitrogen 32 mg/dL (8-23); Carbon Dioxide 37 mEq/L (23-29); Chloride 92 mEq/L (98-107); Globulin 1.8 g/dL (2.4-3.5); Glucose 216 mg/dL (70-105); Osmolality,Calculated 293 (280-300); Sodium 135 mEq/L (136-145); Total Protein 5.2 g/dL (6.4-8.9); eGFR For African Americans > 60 (> 60); eGFR For Non-African Americans > 60 (> 60)
[2021-01-24 03:12] LABS: Folate 7.9 ng/mL (3.0-16.0); Vitamin B12 > 1500 pg/mL (250-1100)
[2021-01-24] MEDS: Ipratropium/Albuterol Neb 3 ML IH SCH ×5 (03:30→20:07)
[2021-01-24] MEDS: MethylPREDNISolone 40 MG/ML VIAL IVP SCH ×2 (06:21→17:18)
[2021-01-24] MEDS: Furosemide 40 MG/4 ML VIAL IVP SCH (08:21)
[2021-01-24] MEDS: *HR* Rivaroxaban 10 MG TABLET PO SCH (08:21)
[2021-01-24] MEDS: *HR* Amiodarone 200 MG TABLET PO SCH (08:22)
[2021-01-24] MEDS: Magnesium Oxide 400 MG TABLET PO SCH (08:22)
[2021-01-24] MEDS: Pyridoxine (B-6) 50 MG TABLET PO SCH (08:22)
[2021-01-24] MEDS: *HR* Buprenorphine HCl 2 MG SUBLINGUAL TABLET SL SCH ×4 (08:22→21:10)
[2021-01-24] MEDS: Spironolactone 25 MG TABLET PO SCH (08:22)
[2021-01-24] MEDS: Azithromycin 250 MG TABLET PO SCH (08:22)
[2021-01-24] MEDS: Gabapentin 400 MG CAPSULE PO SCH ×3 (08:22→21:10)
[2021-01-24] MEDS: Sennosides 8.6 MG TABLET PO SCH (08:22)
[2021-01-24] MEDS: Famotidine 20 MG TABLET PO SCH ×2 (08:23→17:18)
[2021-01-24] MEDS ORDERED: predniSONE 20 MG TABLET PO SCH (09:00)
[2021-01-24] MEDS ORDERED: AZITHROMYCIN 500 MG PO SCH (09:00)
[2021-01-24] MEDS: Metoprolol XL (24 HR) Succ 50 MG TAB.ER.24H PO SCH (11:23)
[2021-01-24 11:56] LABS: ABG Base Excess 12 mEq/L (-2 to 3); ABG HCO3 41 mEq/L (21-27); ABG Oxygen Saturation 89 % (95-98); ABG PCO2 66 mmHg (35-45); ABG PO2 59 mmHg (85-104); ABG TCO2 43 mEq/L (20-26)
[2021-01-24] MEDS: Budesonide/Formoterol 80/4.5 1 PUFF INH IH SCH ×2 (12:04→20:06)
[2021-01-25] MEDS: Ipratropium/Albuterol Neb 3 ML IH SCH ×7 (00:31→23:40)
[2021-01-25 06:30] LABS: Basophils % 0.1 %; Hematocrit 44.4 % (37.5-50.1); Hemoglobin 14.1 g/dL (12.9-16.9); Immature Granulocytes % 0.8 % (0-4); Lymphocytes # 0.6 K/mcL (0.6-4.6); Lymphocytes % 5.3 %; Mean Corpuscular HGB Conc 31.8 g/dL (31.6-35.5); Mean Corpuscular Hemoglobin 33.2 pg (28.0-33.3); Mean Corpuscular Volume 104.5 fL (83.0-100.0); Mean Platelet Volume 10.9 fL (9.4-12.4); Monocytes # 0.8 K/mcL (0.0-1.3); Monocytes % 6.6 %; Neutrophils # 10.2 K/mcL (1.6-8.9); Platelet Count 397 K/mcL (140-400); Red Blood Count 4.25 M/mcL (4.19-5.50); Red Cell Distribution Width 14.6 % (11.5-14.5); Segmented Neutrophils % 87.2 %; White Blood Count 11.7 K/mcL (4.3-11.1)
[2021-01-25] MEDS: Budesonide/Formoterol 80/4.5 1 PUFF INH IH SCH ×2 (07:41→19:58)
[2021-01-25] MEDS: Azithromycin 250 MG TABLET PO SCH (08:19)
[2021-01-25] MEDS: Torsemide 20 MG TABLET PO SCH (08:19)
[2021-01-25] MEDS: Gabapentin 400 MG CAPSULE PO SCH ×3 (08:19→20:21)
[2021-01-25] MEDS: Sennosides 8.6 MG TABLET PO SCH (08:19)
[2021-01-25] MEDS: *HR* Amiodarone 200 MG TABLET PO SCH (08:20)
[2021-01-25] MEDS: Metoprolol XL (24 HR) Succ 50 MG TAB.ER.24H PO SCH (08:20)
[2021-01-25] MEDS: Pyridoxine (B-6) 50 MG TABLET PO SCH (08:20)
[2021-01-25] MEDS: predniSONE 20 MG TABLET PO SCH (08:20)
[2021-01-25] MEDS: *HR* Rivaroxaban 10 MG TABLET PO SCH (08:20)
[2021-01-25] MEDS: *HR* Buprenorphine HCl 2 MG SUBLINGUAL TABLET SL SCH ×4 (08:20→20:21)
[2021-01-25] MEDS: Magnesium Oxide 400 MG TABLET PO SCH (08:21)
[2021-01-25] MEDS: Spironolactone 25 MG TABLET PO SCH (08:21)
[2021-01-25] MEDS: Famotidine 20 MG TABLET PO SCH ×2 (08:21→17:35)
[2021-01-25 10:14] LABS: Alanine Aminotransferase 12 Units/L (7-52); Albumin/Globulin Ratio 1.8 (1.1-2.2); Alkaline Phosphatase 83 Units/L (34-104); Aspartate Amino Transferase 15 Units/L (13-39); BUN/Creatinine Ratio 33 (6-26); Bilirubin,Total 0.4 mg/dL (0.3-1.0); Blood Urea Nitrogen 30 mg/dL (8-23); Calcium 9.4 mg/dL (8.6-10.3); Carbon Dioxide 42 mEq/L (23-29); Chloride 95 mEq/L (98-107); Globulin 2.2 g/dL (2.4-3.5); Glucose 103 mg/dL (70-105); Magnesium 2.6 mg/dL (1.6-2.6); Osmolality,Calculated 294 (280-300); Phosphorous 3.7 mg/dL (2.7-4.5); Potassium 5.3 mEq/L (3.5-5.1); Sodium 139 mEq/L (136-145); Total Protein 6.2 g/dL (6.4-8.9); eGFR For African Americans > 60 (> 60); eGFR For Non-African Americans > 60 (> 60)
[2021-01-26 03:22] LABS: Basophils % 0.1 %; Hematocrit 43.5 % (37.5-50.1); Hemoglobin 13.9 g/dL (12.9-16.9); Immature Granulocytes % 0.5 % (0-4); Lymphocytes # 1.6 K/mcL (0.6-4.6); Lymphocytes % 11.4 %; Mean Corpuscular Hemoglobin 33.3 pg (28.0-33.3); Mean Corpuscular Volume 104.1 fL (83.0-100.0); Mean Platelet Volume 10.7 fL (9.4-12.4); Monocytes # 2.1 K/mcL (0.0-1.3); Monocytes % 14.7 %; Neutrophils # 10.5 K/mcL (1.6-8.9); Platelet Count 397 K/mcL (140-400); Red Blood Count 4.18 M/mcL (4.19-5.50); Red Cell Distribution Width 14.4 % (11.5-14.5); Segmented Neutrophils % 73.3 %; White Blood Count 14.4 K/mcL (4.3-11.1)
[2021-01-26 03:59] LABS: BUN/Creatinine Ratio 39 (6-26); Blood Urea Nitrogen 34 mg/dL (8-23); Calcium 9.2 mg/dL (8.6-10.3); Carbon Dioxide 41 mEq/L (23-29); Chloride 95 mEq/L (98-107); Glucose 103 mg/dL (70-105); Magnesium 2.4 mg/dL (1.6-2.6); Osmolality,Calculated 298 (280-300); Phosphorous 3.9 mg/dL (2.7-4.5); Potassium 5.1 mEq/L (3.5-5.1); Sodium 140 mEq/L (136-145); eGFR For African Americans > 60 (> 60); eGFR For Non-African Americans > 60 (> 60)
[2021-01-26] MEDS: Ipratropium/Albuterol Neb 3 ML IH SCH ×3 (04:17→11:31)
[2021-01-26] MEDS: Budesonide/Formoterol 80/4.5 1 PUFF INH IH SCH (07:19)
[2021-01-26] MEDS: Gabapentin 400 MG CAPSULE PO SCH (08:48)
[2021-01-26] MEDS: Magnesium Oxide 400 MG TABLET PO SCH (08:48)
[2021-01-26] MEDS: Famotidine 20 MG TABLET PO SCH (08:48)
[2021-01-26] MEDS: predniSONE 20 MG TABLET PO SCH (08:48)
[2021-01-26] MEDS: *HR* Amiodarone 200 MG TABLET PO SCH (08:48)
[2021-01-26] MEDS: Spironolactone 25 MG TABLET PO SCH (08:48)
[2021-01-26] MEDS: Pyridoxine (B-6) 50 MG TABLET PO SCH (08:49)
[2021-01-26] MEDS: *HR* Buprenorphine HCl 2 MG SUBLINGUAL TABLET SL SCH (08:49)
[2021-01-26] MEDS: Sennosides 8.6 MG TABLET PO SCH (08:49)
[2021-01-26] MEDS: Metoprolol XL (24 HR) Succ 50 MG TAB.ER.24H PO SCH (08:49)
[2021-01-26] MEDS: Azithromycin 250 MG TABLET PO SCH (08:50)
[2021-01-26] MEDS: *HR* Rivaroxaban 10 MG TABLET PO SCH (08:50)
[2021-01-26] MEDS: Torsemide 20 MG TABLET PO SCH (08:52)
[2021-01-26 11:20] VITALS: BP 100/65; PULSE 77; TEMP 98.1; O2SAT 97
== END 2021-01-26 13:31 | disposition home or self-care (01) | DRG 291 ==
LOC: 3BNU 23:12 → EMEROOARM 23:12 → SUATTDRO 01-23 03:01 → 3BNU 01-23 03:50 → SUATTDRO 01-24 09:50
PROVIDERS: ADMIT Family Medicine; ATTEND Internal Medicine

== ENCOUNTER 2021-03-29 12:44 | Inpatient (IN) ==
[2021-03-29] MEDS ORDERED: Ondansetron 4 MG/2 ML VIAL IVP PRN (18:42)
[2021-03-29] MEDS ORDERED: Naloxone 0.4 MG/ML INJ IVP PRN (18:42)
[2021-03-29 19:24] LABS: Basophils % 0.2 %; Lymphocytes % 4.1 %
[2021-03-29 19:25] LABS: Basophils # 0.1 K/mcL (0.0-0.2); Hematocrit 44.7 % (37.5-50.1); Hemoglobin 13.9 g/dL (12.9-16.9); Immature Granulocytes % 0.8 % (0-4); Lymphocytes # 1.1 K/mcL (0.6-4.6); Mean Corpuscular HGB Conc 31.1 g/dL (31.6-35.5); Mean Platelet Volume 11.1 fL (9.4-12.4); Monocytes % 11.4 %; Platelet Count 314 K/mcL (140-400); Red Blood Count 4.34 M/mcL (4.19-5.50); Red Cell Distribution Width 14.1 % (11.5-14.5); Segmented Neutrophils % 83.5 %; White Blood Count 26.3 K/mcL (4.3-11.1)
[2021-03-29] MEDS ORDERED: Ipratropium/Albuterol Neb 3 ML ONE (19:52)
[2021-03-29 19:54] LABS: BUN/Creatinine Ratio 26 (6-26); Blood Urea Nitrogen 20 mg/dL (8-23); Calcium 8.9 mg/dL (8.6-10.3); Carbon Dioxide 44 mEq/L (23-29); Chloride 92 mEq/L (98-107); Glucose 126 mg/dL (70-105); Osmolality,Calculated 294 (280-300); Potassium 3.8 mEq/L (3.5-5.1); Sodium 140 mEq/L (136-145); eGFR For African Americans > 60 (> 60); eGFR For Non-African Americans > 60 (> 60)
[2021-03-29 19:55] LABS: Troponin I 0.04 ng/mL (< 0.04)
[2021-03-29 19:56] LABS: Reactive Lymphocytes Present (Not Present)
[2021-03-29] MEDS ORDERED: *HR* Dextrose 50 % in Water (Syg) 50 ML SYRINGE IVP PRN (21:56)
[2021-03-29] MEDS ORDERED: D5% in Water 1,000 ML IVC PRN (21:56)
[2021-03-29] MEDS ORDERED: Dextrose Gel 15 GM/37.5 ML TUBE PO PRN ×2 (21:56)
[2021-03-29] MEDS ORDERED: Ipratropium/Albuterol Neb 3 ML IH SCH (22:00)
[2021-03-29] MEDS ORDERED: Levalbuterol Neb 1.25 MG/3 ML IH SCH ×2 (22:00)
[2021-03-29] MEDS ORDERED: Furosemide 20 MG/2 ML VIAL IVP STA (22:27)
[2021-03-29 22:37] LABS: Adenovirus Not Detected (Not Detect); Bordetella Pertussis Not Detected (Not Detect); Chlamydophila pneumoniae Not Detected (Not Detect); Coronavirus 229E Not Detected (Not Detect); Coronavirus HKU1 Not Detected (Not Detect); Coronavirus NL63 Not Detected (Not Detect); Coronavirus OC43 Not Detected (Not Detect); Human Metapneumovirus Not Detected (Not Detect); Human Rhinovirus/Enterovirus Not Detected (Not Detect); Influenza A Subtype 2009 H1 Not Detected (Not Detect); Influenza B Not Detected (Not Detect); Mycoplasma pneumoniae Not Detected (Not Detect); Parainfluenza Virus 1 Not Detected (Not Detect); Parainfluenza Virus 2 Not Detected (Not Detect); Parainfluenza Virus 3 Not Detected (Not Detect); Parainfluenza Virus 4 Not Detected (Not Detect); Respiratory Syncytial Virus Not Detected (Not Detect); SARS-CoV-2 Not Detected (Not Detect)
[2021-03-29] MEDS: Acetaminophen 325 MG TABLET PO PRN (22:46)
[2021-03-29] MEDS: MethylPREDNISolone 40 MG/ML VIAL IVP SCH (22:46)
[2021-03-29 23:15] LABS: ABG Base Excess 16 mEq/L (-2 to 3); ABG HCO3 47 mEq/L (21-27); ABG Oxygen Saturation 88 % (95-98); ABG PCO2 86 mmHg (35-45); ABG PH 7.34 pH Units (7.32-7.45); ABG PO2 62 mmHg (85-104); ABG TCO2 49 mEq/L (20-26)
[2021-03-29 23:52] LABS: Amphetamine Screen,Urine Negative ng/mL (Cutoff=1000); Barbiturate Screen,Urine Negative ng/mL (Cutoff=200); Benzodiazepines Screen,Urine Negative ng/mL (Cutoff=200); Cannabinoid Screen,Urine Negative ng/mL (Cutoff = 50); Cocaine Screen,Urine Negative ng/mL (Cutoff= 300); Opiate Screen,Urine Negative ng/mL (Cutoff=300); Phencyclidine Screen,Urine Negative ng/mL (Cutoff=25)
[2021-03-30] MEDS: Vancomycin 1,250 MG/262.5 ML IV.SOLN IVPB SCH ×3 (00:07→23:59)
[2021-03-30 00:35] LABS: Folate 12.8 ng/mL (3.0-16.0); Vitamin B12 > 1500 pg/mL (250-1100)
[2021-03-30 01:55] LABS: Basophils % 0.1 %; Eosinophils % 0.1 %; Hematocrit 45.2 % (37.5-50.1); Hemoglobin 14.1 g/dL (12.9-16.9); Immature Granulocytes % 0.5 % (0-4); Lymphocytes # 0.5 K/mcL (0.6-4.6); Lymphocytes % 2.3 %; Mean Corpuscular HGB Conc 31.2 g/dL (31.6-35.5); Mean Corpuscular Hemoglobin 31.9 pg (28.0-33.3); Mean Corpuscular Volume 102.3 fL (83.0-100.0); Monocytes # 1.4 K/mcL (0.0-1.3); Monocytes % 6.5 %; Neutrophils # 19.1 K/mcL (1.6-8.9); Platelet Count 320 K/mcL (140-400); Red Blood Count 4.42 M/mcL (4.19-5.50); Segmented Neutrophils % 90.5 %; White Blood Count 21.2 K/mcL (4.3-11.1)
[2021-03-30 01:58] LABS: Magnesium 2.2 mg/dL (1.6-2.6); Phosphorous 2.9 mg/dL (2.7-4.5)
[2021-03-30 02:05] LABS: BUN/Creatinine Ratio 30 (6-26); Blood Urea Nitrogen 23 mg/dL (8-23); Calcium 8.9 mg/dL (8.6-10.3); Carbon Dioxide 44 mEq/L (23-29); Chloride 94 mEq/L (98-107); Glucose 108 mg/dL (70-105); Osmolality,Calculated 296 (280-300); Potassium 4.1 mEq/L (3.5-5.1); Sodium 141 mEq/L (136-145); eGFR For African Americans > 60 (> 60); eGFR For Non-African Americans > 60 (> 60)
[2021-03-30 02:10] LABS: INR 1.2; Prothrombin Time 13.9 Seconds (9.4-12.1)
[2021-03-30] MEDS ORDERED: Saliva Stimulant 44.3ml BOTTLE PO PRN (02:23)
[2021-03-30 02:28] LABS: VBG HCO3 41 mEq/L (21-27); VBG PCO2 52 mmHg (41-51); VBG PH 7.51 pH Units (7.32-7.42); VBG PO2 111 mmHg (25-50)
[2021-03-30 03:09] LABS: Thyroid Stimulating Hormone 0.238 mcIU/mL (0.340-5.600)
[2021-03-30] MEDS ORDERED: Ipratropium 1 PUFF INHALER IH SCH (04:00)
[2021-03-30] MEDS: Ipratropium Neb 0.5 MG NEBULIZER IH SCH ×4 (04:18→22:24)
[2021-03-30] MEDS: Levalbuterol Neb 1.25 MG/3 ML IH SCH ×4 (04:19→22:24)
[2021-03-30] MEDS: Acetaminophen 325 MG TABLET PO PRN ×2 (06:36→21:08)
[2021-03-30] MEDS ORDERED: Furosemide 20 MG/2 ML VIAL IVP SCH (08:00)
[2021-03-30] MEDS ORDERED: cefTRIAXone 1,000 MG in Water for inj. (sterile) 10 ML IVP SCH (09:00)
[2021-03-30] MEDS ORDERED: cefTRIAXone 1,000 MG in 0.9 % Sodium Chloride Mini Bag 100 ML IVPB SCH (09:00)
[2021-03-30] MEDS: Lactobacillus 1 EACH CAP.SPRINK PO SCH (09:02)
[2021-03-30] MEDS: Nicotine 21 MG PATCH.TD24 TD SCH (09:02)
[2021-03-30] MEDS: Chlorhexidine Rinse 15 ML MOUTHWASH MM SCH ×2 (09:03→21:07)
[2021-03-30] MEDS: Azithromycin 250 MG TABLET PO SCH (09:03)
[2021-03-30] MEDS: carvediloL 6.25 MG TABLET PO SCH ×2 (09:03→15:38)
[2021-03-30] MEDS: cefTRIAXone 2,000 MG in Water for inj. (sterile) 20 ML IVP SCH (09:04)
[2021-03-30] MEDS: MethylPREDNISolone 40 MG/ML VIAL IVP SCH ×2 (09:05→21:07)
[2021-03-30] MEDS: Budesonide/Formoterol 160/4.5 1 PUFF INH IH SCH ×2 (10:31→22:24)
[2021-03-30] MEDS ORDERED: Azithromycin 500 MG in 0.9 % Sodium Chloride 250 ML IVPB SCH (11:00)
[2021-03-30] MEDS: Furosemide 20 MG/2 ML VIAL IVP SCH (15:36)
[2021-03-30] MEDS: *HR* Rivaroxaban 10 MG TABLET PO SCH (15:37)
[2021-03-31 02:47] LABS: Basophils % 0.1 %; Hematocrit 39.6 % (37.5-50.1); Immature Granulocytes % 0.9 % (0-4); Lymphocytes # 0.4 K/mcL (0.6-4.6); Lymphocytes % 2.6 %; Mean Corpuscular HGB Conc 32.8 g/dL (31.6-35.5); Mean Corpuscular Hemoglobin 32.5 pg (28.0-33.3); Mean Platelet Volume 11.3 fL (9.4-12.4); Monocytes # 0.8 K/mcL (0.0-1.3); Monocytes % 5.1 %; Neutrophils # 14.2 K/mcL (1.6-8.9); Platelet Count 338 K/mcL (140-400); Red Cell Distribution Width 13.8 % (11.5-14.5); Segmented Neutrophils % 91.3 %; White Blood Count 15.5 K/mcL (4.3-11.1)
[2021-03-31 03:07] LABS: Magnesium 2.2 mg/dL (1.6-2.6); Phosphorous 4.3 mg/dL (2.7-4.5)
[2021-03-31 03:19] LABS: Alanine Aminotransferase 9 Units/L (7-52); Albumin/Globulin Ratio 1.2 (1.1-2.2); Alkaline Phosphatase 72 Units/L (34-104); Aspartate Amino Transferase 17 Units/L (13-39); BUN/Creatinine Ratio 43 (6-26); Bilirubin,Total 0.3 mg/dL (0.3-1.0); Blood Urea Nitrogen 36 mg/dL (8-23); Calcium 8.7 mg/dL (8.6-10.3); Carbon Dioxide 40 mEq/L (23-29); Chloride 92 mEq/L (98-107); Globulin 2.5 g/dL (2.4-3.5); Glucose 217 mg/dL (70-105); Osmolality,Calculated 299 (280-300); Potassium 4.2 mEq/L (3.5-5.1); Sodium 137 mEq/L (136-145); Total Protein 5.5 g/dL (6.4-8.9); eGFR For African Americans > 60 (> 60); eGFR For Non-African Americans > 60 (> 60)
[2021-03-31] MEDS: Ipratropium Neb 0.5 MG NEBULIZER IH SCH ×4 (03:47→20:30)
[2021-03-31] MEDS: Levalbuterol Neb 1.25 MG/3 ML IH SCH ×4 (03:47→20:30)
[2021-03-31] MEDS: *HR* Buprenorphine HCl 2 MG SUBLINGUAL TABLET SL SCH ×4 (07:45→21:30)
[2021-03-31] MEDS: Cholecalciferol (D-3) 1,000 UNIT (25MCG) TABLET PO SCH (07:45)
[2021-03-31] MEDS: Gabapentin 400 MG CAPSULE PO SCH ×3 (07:46→21:19)
[2021-03-31] MEDS: Famotidine 20 MG TABLET PO SCH ×2 (07:46→15:42)
[2021-03-31] MEDS: Magnesium Oxide 400 MG TABLET PO SCH (07:46)
[2021-03-31] MEDS: Cyanocobalamin (B-12) 1,000 MCG TABLET PO SCH (07:46)
[2021-03-31] MEDS: Metoprolol XL (24 HR) Succ 50 MG TAB.ER.24H PO SCH (07:46)
[2021-03-31] MEDS: Sennosides 8.6 MG TABLET PO SCH (07:46)
[2021-03-31] MEDS: Azithromycin 250 MG TABLET PO SCH (07:47)
[2021-03-31] MEDS: Lactobacillus 1 EACH CAP.SPRINK PO SCH (07:47)
[2021-03-31] MEDS: Furosemide 20 MG/2 ML VIAL IVP SCH ×2 (07:50→17:20)
[2021-03-31] MEDS: Nicotine 21 MG PATCH.TD24 TD SCH (07:51)
[2021-03-31] MEDS: Chlorhexidine Rinse 15 ML MOUTHWASH MM SCH ×2 (07:51→21:21)
[2021-03-31] MEDS: cefTRIAXone 2,000 MG in Water for inj. (sterile) 20 ML IVP SCH (07:51)
[2021-03-31] MEDS ORDERED: NON-FORMULARY MEDICATION 1 EACH EACH (Fluticasone/Salmeterol [Advair 250-50 Diskus] 1 EACH IH SCH (09:00)
[2021-03-31] MEDS: Budesonide/Formoterol 160/4.5 1 PUFF INH IH SCH ×2 (10:54→20:30)
[2021-03-31] MEDS: Vancomycin 1,250 MG/262.5 ML IV.SOLN IVPB SCH (12:25)
[2021-03-31] MEDS: *HR* Rivaroxaban 10 MG TABLET PO SCH (17:20)
[2021-03-31] MEDS: Acetaminophen 325 MG TABLET PO PRN (17:33)
[2021-03-31] MEDS: Vancomycin 1,500 MG/265 ML IV.SOLN IVPB SCH (22:30)
[2021-04-01] MEDS: Ipratropium Neb 0.5 MG NEBULIZER IH SCH ×4 (04:22→20:36)
[2021-04-01] MEDS: Levalbuterol Neb 1.25 MG/3 ML IH SCH ×4 (04:22→20:36)
[2021-04-01 04:54] LABS: Hematocrit 40.6 % (37.5-50.1); Hemoglobin 13.2 g/dL (12.9-16.9); Mean Corpuscular HGB Conc 32.5 g/dL (31.6-35.5); Mean Corpuscular Hemoglobin 32.5 pg (28.0-33.3); Mean Platelet Volume 11.1 fL (9.4-12.4); Platelet Count 317 K/mcL (140-400); Red Blood Count 4.06 M/mcL (4.19-5.50); Red Cell Distribution Width 14.1 % (11.5-14.5); White Blood Count 14.4 K/mcL (4.3-11.1)
[2021-04-01 05:28] LABS: Magnesium 2.3 mg/dL (1.6-2.6); Phosphorous 3.7 mg/dL (2.7-4.5)
[2021-04-01 05:29] LABS: BUN/Creatinine Ratio 46 (6-26); Blood Urea Nitrogen 31 mg/dL (8-23); Carbon Dioxide 39 mEq/L (23-29); Chloride 95 mEq/L (98-107); Glucose 163 mg/dL (70-105); Osmolality,Calculated 300 (280-300); Potassium 3.9 mEq/L (3.5-5.1); Sodium 140 mEq/L (136-145); eGFR For African Americans > 60 (> 60); eGFR For Non-African Americans > 60 (> 60)
[2021-04-01] MEDS ORDERED: MethylPREDNISolone 40 MG/ML VIAL IVP SCH (09:00)
[2021-04-01] MEDS: Chlorhexidine Rinse 15 ML MOUTHWASH MM SCH ×2 (09:17→21:00)
[2021-04-01] MEDS: Sennosides 8.6 MG TABLET PO SCH (09:17)
[2021-04-01] MEDS: Acetaminophen 325 MG TABLET PO PRN (09:18)
[2021-04-01] MEDS: Famotidine 20 MG TABLET PO SCH ×2 (09:18→15:18)
[2021-04-01] MEDS: Metoprolol XL (24 HR) Succ 50 MG TAB.ER.24H PO SCH (09:18)
[2021-04-01] MEDS: Lactobacillus 1 EACH CAP.SPRINK PO SCH (09:18)
[2021-04-01] MEDS: Nicotine 21 MG PATCH.TD24 TD SCH (09:19)
[2021-04-01] MEDS: Furosemide 20 MG/2 ML VIAL IVP SCH ×2 (09:20→17:37)
[2021-04-01] MEDS: Magnesium Oxide 400 MG TABLET PO SCH (09:20)
[2021-04-01] MEDS: Cholecalciferol (D-3) 1,000 UNIT (25MCG) TABLET PO SCH (09:20)
[2021-04-01] MEDS: Cyanocobalamin (B-12) 1,000 MCG TABLET PO SCH (09:21)
[2021-04-01] MEDS: Azithromycin 250 MG TABLET PO SCH (09:21)
[2021-04-01] MEDS: Gabapentin 400 MG CAPSULE PO SCH ×3 (09:21→20:59)
[2021-04-01] MEDS: cefTRIAXone 2,000 MG in Water for inj. (sterile) 20 ML IVP SCH (09:22)
[2021-04-01] MEDS: *HR* Buprenorphine HCl 2 MG SUBLINGUAL TABLET SL SCH ×4 (09:27→20:59)
[2021-04-01] MEDS: Budesonide/Formoterol 160/4.5 1 PUFF INH IH SCH ×2 (10:50→20:36)
[2021-04-01] MEDS: Vancomycin 1,500 MG/265 ML IV.SOLN IVPB SCH ×2 (13:02→23:54)
[2021-04-01] MEDS: *HR* Rivaroxaban 10 MG TABLET PO SCH (17:35)
[2021-04-02 03:13] LABS: Basophils % 0.1 %; Hematocrit 41.1 % (37.5-50.1); Hemoglobin 12.8 g/dL (12.9-16.9); Immature Granulocytes % 0.7 % (0-4); Lymphocytes # 0.8 K/mcL (0.6-4.6); Lymphocytes % 6.6 %; Mean Corpuscular HGB Conc 31.1 g/dL (31.6-35.5); Mean Corpuscular Hemoglobin 31.8 pg (28.0-33.3); Monocytes # 1.7 K/mcL (0.0-1.3); Monocytes % 14.4 %; Neutrophils # 9.5 K/mcL (1.6-8.9); Platelet Count 308 K/mcL (140-400); Red Blood Count 4.03 M/mcL (4.19-5.50); Red Cell Distribution Width 14.1 % (11.5-14.5); Segmented Neutrophils % 78.2 %; White Blood Count 12.1 K/mcL (4.3-11.1)
[2021-04-02 03:35] LABS: Alanine Aminotransferase 15 Units/L (7-52); Albumin 3.2 g/dL (3.5-5.7); Albumin/Globulin Ratio 1.3 (1.1-2.2); Alkaline Phosphatase 80 Units/L (34-104); Aspartate Amino Transferase 23 Units/L (13-39); BUN/Creatinine Ratio 39 (6-26); Bilirubin,Total 0.3 mg/dL (0.3-1.0); Blood Urea Nitrogen 29 mg/dL (8-23); Carbon Dioxide 39 mEq/L (23-29); Chloride 94 mEq/L (98-107); Globulin 2.5 g/dL (2.4-3.5); Glucose 256 mg/dL (70-105); Osmolality,Calculated 299 (280-300); Potassium 4.7 mEq/L (3.5-5.1); Sodium 137 mEq/L (136-145); Total Protein 5.7 g/dL (6.4-8.9); eGFR For African Americans > 60 (> 60); eGFR For Non-African Americans > 60 (> 60)
[2021-04-02] MEDS: Levalbuterol Neb 1.25 MG/3 ML IH SCH ×4 (03:53→20:11)
[2021-04-02] MEDS: Ipratropium Neb 0.5 MG NEBULIZER IH SCH ×4 (03:53→20:11)
[2021-04-02] MEDS: Budesonide/Formoterol 160/4.5 1 PUFF INH IH SCH ×2 (10:03→20:12)
[2021-04-02] MEDS: Azithromycin 250 MG TABLET PO SCH (10:40)
[2021-04-02] MEDS: Cholecalciferol (D-3) 1,000 UNIT (25MCG) TABLET PO SCH (10:41)
[2021-04-02] MEDS: Metoprolol XL (24 HR) Succ 50 MG TAB.ER.24H PO SCH (10:41)
[2021-04-02] MEDS: Sennosides 8.6 MG TABLET PO SCH (10:42)
[2021-04-02] MEDS: Lactobacillus 1 EACH CAP.SPRINK PO SCH (10:43)
[2021-04-02] MEDS: Famotidine 20 MG TABLET PO SCH ×2 (10:44→16:17)
[2021-04-02] MEDS: Cyanocobalamin (B-12) 1,000 MCG TABLET PO SCH (10:44)
[2021-04-02] MEDS: Gabapentin 400 MG CAPSULE PO SCH ×3 (10:44→21:37)
[2021-04-02] MEDS: Magnesium Oxide 400 MG TABLET PO SCH (10:45)
[2021-04-02] MEDS: predniSONE 20 MG TABLET PO SCH (10:45)
[2021-04-02] MEDS: *HR* Buprenorphine HCl 2 MG SUBLINGUAL TABLET SL SCH ×4 (10:46→21:37)
[2021-04-02] MEDS: Nicotine 21 MG PATCH.TD24 TD SCH (10:47)
[2021-04-02] MEDS: Chlorhexidine Rinse 15 ML MOUTHWASH MM SCH ×2 (10:47→21:36)
[2021-04-02] MEDS: cefTRIAXone 2,000 MG in Water for inj. (sterile) 20 ML IVP SCH (10:52)
[2021-04-02] MEDS: Furosemide 20 MG/2 ML VIAL IVP SCH ×2 (10:55→16:20)
[2021-04-02] MEDS: Vancomycin 1,500 MG/265 ML IV.SOLN IVPB SCH ×2 (11:17→23:44)
[2021-04-02] MEDS: *HR* Rivaroxaban 10 MG TABLET PO SCH (16:17)
[2021-04-03] MEDS: Gabapentin 400 MG CAPSULE PO SCH ×2 (02:50→09:17)
[2021-04-03] MEDS: Levalbuterol Neb 1.25 MG/3 ML IH SCH ×3 (03:23→15:50)
[2021-04-03] MEDS: Ipratropium Neb 0.5 MG NEBULIZER IH SCH ×3 (03:23→15:50)
[2021-04-03] MEDS: Chlorhexidine Rinse 15 ML MOUTHWASH MM SCH (09:16)
[2021-04-03] MEDS: Cyanocobalamin (B-12) 1,000 MCG TABLET PO SCH (09:16)
[2021-04-03] MEDS: Nicotine 21 MG PATCH.TD24 TD SCH (09:16)
[2021-04-03] MEDS: Metoprolol XL (24 HR) Succ 50 MG TAB.ER.24H PO SCH (09:17)
[2021-04-03] MEDS: Sennosides 8.6 MG TABLET PO SCH (09:17)
[2021-04-03] MEDS: predniSONE 20 MG TABLET PO SCH (09:17)
[2021-04-03] MEDS: Cholecalciferol (D-3) 1,000 UNIT (25MCG) TABLET PO SCH (09:18)
[2021-04-03] MEDS: Magnesium Oxide 400 MG TABLET PO SCH (09:18)
[2021-04-03] MEDS: Famotidine 20 MG TABLET PO SCH ×2 (09:18→14:52)
[2021-04-03] MEDS: Lactobacillus 1 EACH CAP.SPRINK PO SCH (09:18)
[2021-04-03] MEDS: Azithromycin 250 MG TABLET PO SCH (09:18)
[2021-04-03] MEDS: *HR* Buprenorphine HCl 2 MG SUBLINGUAL TABLET SL SCH ×2 (09:18→13:01)
[2021-04-03] MEDS: cefTRIAXone 2,000 MG in Water for inj. (sterile) 20 ML IVP SCH (09:19)
[2021-04-03] MEDS: Furosemide 20 MG/2 ML VIAL IVP SCH (09:19)
[2021-04-03 10:02] VITALS: BP 144/89; PULSE 100; TEMP 97.9
[2021-04-03] MEDS: Budesonide/Formoterol 160/4.5 1 PUFF INH IH SCH (10:22)
[2021-04-03] MEDS: Vancomycin 1,500 MG/265 ML IV.SOLN IVPB SCH (13:01)
[2021-04-03] MEDS: Acetaminophen 325 MG TABLET PO PRN (13:08)
[2021-04-03 16:07] VITALS: O2SAT 94
== END 2021-04-03 16:45 | disposition home or self-care (01) | DRG 871 ==
LOC: 2NENU → SUATTDRO 18:14
PROVIDERS: ADMIT Family Medicine; ATTEND Internal Medicine

== ENCOUNTER 2021-04-16 10:47 | Inpatient (IN) ==
[2021-04-16] MEDS ORDERED: Ipratropium/Albuterol Neb 3 ML IH ONE (10:57)
[2021-04-16 11:13] LABS: ABG Base Excess 13 mEq/L (-2 to 3); ABG HCO3 48 mEq/L (21-27); ABG Oxygen Saturation 100 % (95-98); ABG PCO2 107 mmHg (35-45); ABG PH 7.26 pH Units (7.32-7.45); ABG PO2 452 mmHg (85-104); ABG TCO2 > 50 mEq/L (20-26); Blood Gas VT 500 cc
[2021-04-16] MEDS: *HR* Metoprolol 5 MG/5 ML VIAL IVP PRN ×2 (11:13→12:20)
[2021-04-16 11:33] LABS: Basophils % 0.2 %; Eosinophils # 0.1 K/mcL (0.0-0.6); Eosinophils % 0.3 %; Hematocrit 49.2 % (37.5-50.1); Hemoglobin 15.2 g/dL (12.9-16.9); Lymphocytes # 0.7 K/mcL (0.6-4.6); Lymphocytes % 3.1 %; Mean Corpuscular HGB Conc 30.9 g/dL (31.6-35.5); Mean Corpuscular Hemoglobin 31.7 pg (28.0-33.3); Mean Corpuscular Volume 102.7 fL (83.0-100.0); Mean Platelet Volume 10.9 fL (9.4-12.4); Monocytes # 2.4 K/mcL (0.0-1.3); Monocytes % 11.1 %; Neutrophils # 17.8 K/mcL (1.6-8.9); Platelet Count 352 K/mcL (140-400); Red Blood Count 4.79 M/mcL (4.19-5.50); Red Cell Distribution Width 15.5 % (11.5-14.5); Segmented Neutrophils % 84.3 %; White Blood Count 21.1 K/mcL (4.3-11.1)
[2021-04-16 11:41] LABS: INR 1.1; Prothrombin Time 12.6 Seconds (9.4-12.1)
[2021-04-16] MEDS ORDERED: cefTRIAXone 2,000 MG in Water for inj. (sterile) 20 ML IVP ONE (11:43)
[2021-04-16] MEDS ORDERED: Azithromycin 500 MG in 0.9 % Sodium Chloride 250 ML IVPB ONE (11:43)
[2021-04-16 12:00] LABS: Alanine Aminotransferase 29 Units/L (7-52); Albumin 4.3 g/dL (3.5-5.7); Alkaline Phosphatase 105 Units/L (34-104); Aspartate Amino Transferase 46 Units/L (13-39); BUN/Creatinine Ratio 40 (6-26); Bilirubin,Direct 0.2 mg/dL (0.0-0.2); Bilirubin,Indirect 0.7 mg/dL (0.0-1.0); Bilirubin,Total 0.9 mg/dL (0.3-1.0); Blood Urea Nitrogen 27 mg/dL (8-23); Calcium 9.5 mg/dL (8.6-10.3); Carbon Dioxide 41 mEq/L (23-29); Chloride 94 mEq/L (98-107); Globulin 2.2 g/dL (2.4-3.5); Glucose 159 mg/dL (70-105); Osmolality,Calculated 304 (280-300); Sodium 143 mEq/L (136-145); Total Protein 6.5 g/dL (6.4-8.9); Troponin I 0.06 ng/mL (< 0.04); eGFR For African Americans > 60 (> 60); eGFR For Non-African Americans > 60 (> 60)
[2021-04-16 12:07] LABS: Influenza A PCR Negative (Negative); Influenza B PCR Negative (Negative); Resp. Syncytial Virus PCR Negative (Negative)
[2021-04-16 12:08] LABS: SARS-CoV-2 by PCR (In House) Negative (Negative)
[2021-04-16 12:08] LABS: Thyroid Stimulating Hormone 0.417 mcIU/mL (0.340-5.600)
[2021-04-16] MEDS ORDERED: Naloxone 0.4 MG/ML INJ IVP PRN (12:47)
[2021-04-16] MEDS ORDERED: Ondansetron 4 MG/2 ML VIAL IVP PRN (12:47)
[2021-04-16] MEDS ORDERED: Furosemide 40 MG/4 ML VIAL IVP ONE (13:18)
[2021-04-16] MEDS ORDERED: Dextrose Gel 15 GM/37.5 ML TUBE PO PRN ×2 (13:33)
[2021-04-16] MEDS ORDERED: *HR* Dextrose 50 % in Water (Syg) 50 ML SYRINGE IVP PRN (13:33)
[2021-04-16] MEDS ORDERED: *HR* Metoprolol 5 MG/5 ML VIAL IVP PRN (13:33)
[2021-04-16] MEDS ORDERED: D5% in Water 1,000 ML IVC PRN (13:33)
[2021-04-16] MEDS ORDERED: *HR* Heparin 5,000 UNIT/ML VIAL IVP PRN (14:10)
[2021-04-16] MEDS ORDERED: *HR* Heparin 5,000 UNIT/ML VIAL IVP ONE (14:10)
[2021-04-16] MEDS ORDERED: Heparin 25,000UNIT/250ML 1/2NS 25,000 UNIT/250 ML IV.SOLN IVC SCH (14:15)
[2021-04-16] MEDS: MethylPREDNISolone 40 MG/ML VIAL IVP SCH (14:38)
[2021-04-16] MEDS: Vancomycin 1,500 MG/265 ML IV.SOLN IVPB SCH (14:38)
[2021-04-16 15:28] LABS: ABG Base Excess 13 mEq/L (-2 to 3); ABG HCO3 47 mEq/L (21-27); ABG Oxygen Saturation 100 % (95-98); ABG PCO2 104 mmHg (35-45); ABG PH 7.26 pH Units (7.32-7.45); ABG PO2 476 mmHg (85-104); ABG TCO2 50 mEq/L (20-26); Blood Gas Modality avaps; Blood Gas Pressure Support 35 cm H2O; Blood Gas VT 500 cc
[2021-04-16] MEDS: Ipratropium Neb 0.5 MG NEBULIZER IH SCH ×3 (15:32→23:15)
[2021-04-16] MEDS: Levalbuterol Neb 0.63 MG/3 ML IH SCH ×3 (15:32→23:15)
[2021-04-16] MEDS: Heparin 25,000UNIT/250ML 1/2NS 25,000 UNIT/250 ML IV.SOLN IVC SCH (15:57)
[2021-04-16] MEDS: Cefepime HCl 2,000 MG in Water for inj. (sterile) 20 ML IVP SCH (15:59)
[2021-04-16] MEDS ORDERED: MethylPREDNISolone 40 MG/ML VIAL IVP SCH (16:00)
[2021-04-16] MEDS ORDERED: Furosemide 40 MG/4 ML VIAL IVP SCH (17:00)
[2021-04-16] MEDS: Insulin LISPRO 300 UNITS/3 ML VIAL SUBQ SCH (18:35)
[2021-04-17] MEDS: MethylPREDNISolone 40 MG/ML VIAL IVP SCH ×3 (00:02→14:55)
[2021-04-17] MEDS: Insulin LISPRO 300 UNITS/3 ML VIAL SUBQ SCH ×4 (00:02→18:22)
[2021-04-17] MEDS: Cefepime HCl 2,000 MG in Water for inj. (sterile) 20 ML IVP SCH ×3 (00:02→14:55)
[2021-04-17 02:01] LABS: Basophils % 0.2 %; Lymphocytes % 1.3 %
[2021-04-17 02:02] LABS: Basophils # 0.1 K/mcL (0.0-0.2); Hematocrit 47.3 % (37.5-50.1); Hemoglobin 14.7 g/dL (12.9-16.9); Immature Granulocytes % 0.6 % (0-4); Lymphocytes # 0.4 K/mcL (0.6-4.6); Mean Corpuscular HGB Conc 31.1 g/dL (31.6-35.5); Mean Corpuscular Hemoglobin 31.3 pg (28.0-33.3); Mean Corpuscular Volume 100.9 fL (83.0-100.0); Mean Platelet Volume 11.2 fL (9.4-12.4); Monocytes # 2.4 K/mcL (0.0-1.3); Monocytes % 8.4 %; Neutrophils # 25.1 K/mcL (1.6-8.9); Platelet Count 235 K/mcL (140-400); Red Blood Count 4.69 M/mcL (4.19-5.50); Red Cell Distribution Width 15.6 % (11.5-14.5); Segmented Neutrophils % 89.5 %
[2021-04-17 02:28] LABS: BUN/Creatinine Ratio 39 (6-26); Blood Urea Nitrogen 28 mg/dL (8-23); Calcium 9.3 mg/dL (8.6-10.3); Carbon Dioxide 38 mEq/L (23-29); Chloride 96 mEq/L (98-107); Glucose 156 mg/dL (70-105); Osmolality,Calculated 311 (280-300); Potassium 4.6 mEq/L (3.5-5.1); Sodium 146 mEq/L (136-145); eGFR For African Americans > 60 (> 60); eGFR For Non-African Americans > 60 (> 60)
[2021-04-17] MEDS: Vancomycin 1,500 MG/265 ML IV.SOLN IVPB SCH ×2 (03:01→14:55)
[2021-04-17] MEDS: Levalbuterol Neb 0.63 MG/3 ML IH SCH ×6 (03:22→23:55)
[2021-04-17] MEDS: Ipratropium Neb 0.5 MG NEBULIZER IH SCH ×6 (03:22→23:55)
[2021-04-17 03:29] LABS: ABG Base Excess 17 mEq/L (-2 to 3); ABG HCO3 47 mEq/L (21-27); ABG Oxygen Saturation 96 % (95-98); ABG PCO2 75 mmHg (35-45); ABG PO2 87 mmHg (85-104); ABG TCO2 49 mEq/L (20-26); Blood Gas Modality BiLevel
[2021-04-17] MEDS ORDERED: *HR* OxyCODONE/APAP 10/325 TABLET PO ONE (09:38)
[2021-04-17] MEDS: Metoprolol XL (24 HR) Succ 50 MG TAB.ER.24H PO SCH (11:10)
[2021-04-17] MEDS: *HR* Heparin 5,000 UNIT/ML VIAL IVP PRN (11:11)
[2021-04-17] MEDS: Heparin 25,000UNIT/250ML 1/2NS 25,000 UNIT/250 ML IV.SOLN IVC SCH (12:37)
[2021-04-17] MEDS: Azithromycin 500 MG in 0.9 % Sodium Chloride 250 ML IVPB SCH (12:39)
[2021-04-17] MEDS: Gabapentin 400 MG CAPSULE PO SCH ×2 (14:55→20:06)
[2021-04-17] MEDS ORDERED: Eucerin Cream 57 GM TUBE TP PRN (16:22)
[2021-04-17] MEDS: Famotidine 20 MG TABLET PO SCH (18:26)
[2021-04-17] MEDS: *HR* Buprenorphine HCl 8 MG TAB.SUBL SL SCH (20:06)
[2021-04-17] MEDS ORDERED: Gabapentin 400 MG CAPSULE PO SCH (21:00)
[2021-04-17] MEDS ORDERED: Torsemide 20 MG TABLET PO SCH (21:00)
[2021-04-18] MEDS: Cefepime HCl 2,000 MG in Water for inj. (sterile) 20 ML IVP SCH ×3 (00:41→15:19)
[2021-04-18] MEDS: Insulin LISPRO 300 UNITS/3 ML VIAL SUBQ SCH ×3 (00:42→11:56)
[2021-04-18] MEDS: MethylPREDNISolone 40 MG/ML VIAL IVP SCH ×2 (00:42→08:05)
[2021-04-18] MEDS: Vancomycin 1,500 MG/265 ML IV.SOLN IVPB SCH ×2 (02:23→13:51)
[2021-04-18 02:35] LABS: Basophils % 0.1 %; Hematocrit 39.8 % (37.5-50.1); Immature Granulocytes % 0.4 % (0-4); Lymphocytes # 0.4 K/mcL (0.6-4.6); Lymphocytes % 2.1 %; Mean Corpuscular HGB Conc 32.4 g/dL (31.6-35.5); Mean Corpuscular Hemoglobin 32.7 pg (28.0-33.3); Mean Corpuscular Volume 100.8 fL (83.0-100.0); Mean Platelet Volume 11.2 fL (9.4-12.4); Monocytes # 1.4 K/mcL (0.0-1.3); Monocytes % 7.1 %; Neutrophils # 18.4 K/mcL (1.6-8.9); Platelet Count 272 K/mcL (140-400); Red Blood Count 3.95 M/mcL (4.19-5.50); Red Cell Distribution Width 15.9 % (11.5-14.5); Segmented Neutrophils % 90.3 %; White Blood Count 20.4 K/mcL (4.3-11.1)
[2021-04-18 02:39] LABS: Hemoglobin 12.9 g/dL (12.9-16.9)
[2021-04-18 03:00] LABS: BUN/Creatinine Ratio 53 (6-26); Blood Urea Nitrogen 36 mg/dL (8-23); Calcium 8.7 mg/dL (8.6-10.3); Carbon Dioxide 39 mEq/L (23-29); Chloride 95 mEq/L (98-107); Glucose 176 mg/dL (70-105); Osmolality,Calculated 301 (280-300); Potassium 4.3 mEq/L (3.5-5.1); Sodium 139 mEq/L (136-145); eGFR For African Americans > 60 (> 60); eGFR For Non-African Americans > 60 (> 60)
[2021-04-18] MEDS: Levalbuterol Neb 0.63 MG/3 ML IH SCH ×5 (03:11→20:03)
[2021-04-18] MEDS: Ipratropium Neb 0.5 MG NEBULIZER IH SCH ×5 (03:11→20:02)
[2021-04-18] MEDS: *HR* Heparin 5,000 UNIT/ML VIAL IVP PRN (04:53)
[2021-04-18] MEDS: Metoprolol XL (24 HR) Succ 50 MG TAB.ER.24H PO SCH (07:40)
[2021-04-18] MEDS: *HR* Buprenorphine HCl 8 MG TAB.SUBL SL SCH ×3 (07:43→17:03)
[2021-04-18] MEDS: Gabapentin 400 MG CAPSULE PO SCH ×2 (07:43→15:19)
[2021-04-18] MEDS: Famotidine 20 MG TABLET PO SCH ×2 (07:53→15:19)
[2021-04-18] MEDS ORDERED: Sennosides 8.6 MG TABLET PO SCH (09:00)
[2021-04-18] MEDS ORDERED: Pyridoxine (B-6) 50 MG TABLET PO SCH (09:00)
[2021-04-18] MEDS ORDERED: Magnesium Oxide 400 MG TABLET PO SCH (09:00)
[2021-04-18] MEDS ORDERED: Torsemide 20 MG TABLET PO SCH (09:00)
[2021-04-18] MEDS: Heparin 25,000UNIT/250ML 1/2NS 25,000 UNIT/250 ML IV.SOLN IVC SCH (09:09)
[2021-04-18] MEDS: Azithromycin 500 MG in 0.9 % Sodium Chloride 250 ML IVPB SCH (13:01)
[2021-04-18 16:20] VITALS: BP 126/63; PULSE 120; TEMP 98.4; O2SAT 90
== END 2021-04-18 19:00 | disposition home or self-care (01) | DRG 871 ==
LOC: EMEROOARM 10:47 → 2NNU 13:03 → SUATTDRO 13:03 → 2NNU 14:05
PROVIDERS: ADMIT Student in an Organized Health Care Education/Training Program; ATTEND Family Medicine

== ENCOUNTER 2021-05-15 15:22 | Inpatient (IN) ==
[2021-05-15] MEDS ORDERED: Ondansetron 4 MG/2 ML VIAL IVP PRN (19:37)
[2021-05-15] MEDS ORDERED: Naloxone 0.4 MG/ML INJ IVP PRN (19:37)
[2021-05-15 20:51] LABS: Bilirubin,Urine Negative (Negative); Blood,Urine Negative (Negative); Clarity,Urine Clear (Clear); Color,Urine Light-Yellow (Yellow); Glucose,Urine (UA) Normal (Normal); Ketones,Urine Negative (Negative); Leukocyte Esterase,Urine Negative (Negative); Nitrite,Urine Negative (Negative); Protein,Urine Trace mg/dL (Neg-Trace); Urobilinogen,Urine Normal (Normal)
[2021-05-15 20:52] LABS: Calcium 9.1 mg/dL (8.6-10.3); Potassium 3.7 mEq/L (3.5-5.1); Troponin I 0.08 ng/mL (< 0.04)
[2021-05-15] MEDS ORDERED: Ipratropium/Albuterol Neb 3 ML IH PRN (21:07)
[2021-05-15 21:56] LABS: Adenovirus Not Detected (Not Detect)
[2021-05-15 21:57] LABS: Bordetella Pertussis Not Detected (Not Detect); Chlamydophila pneumoniae Not Detected (Not Detect); Coronavirus 229E Not Detected (Not Detect); Coronavirus HKU1 Not Detected (Not Detect); Coronavirus NL63 Not Detected (Not Detect); Coronavirus OC43 Not Detected (Not Detect); Human Metapneumovirus DETECTED (Not Detect); Human Rhinovirus/Enterovirus Not Detected (Not Detect); Influenza A Subtype 2009 H1 Not Detected (Not Detect); Influenza B Not Detected (Not Detect); Mycoplasma pneumoniae Not Detected (Not Detect); Parainfluenza Virus 1 Not Detected (Not Detect); Parainfluenza Virus 2 Not Detected (Not Detect); Parainfluenza Virus 3 Not Detected (Not Detect); Parainfluenza Virus 4 Not Detected (Not Detect); Respiratory Syncytial Virus Not Detected (Not Detect); SARS-CoV-2 Not Detected (Not Detect)
[2021-05-16 06:02] LABS: Basophils # 0.1 K/mcL (0.0-0.2); Basophils % 0.4 %; Eosinophils % 0.3 %; Hematocrit 42.6 % (37.5-50.1); Hemoglobin 13.4 g/dL (12.9-16.9); Immature Granulocytes % 0.4 % (0-4); Lymphocytes # 1.2 K/mcL (0.6-4.6); Lymphocytes % 10.2 %; Mean Corpuscular HGB Conc 31.5 g/dL (31.6-35.5); Mean Corpuscular Hemoglobin 30.9 pg (28.0-33.3); Mean Corpuscular Volume 98.4 fL (83.0-100.0); Mean Platelet Volume 10.9 fL (9.4-12.4); Monocytes # 1.7 K/mcL (0.0-1.3); Monocytes % 14.1 %; Neutrophils # 8.8 K/mcL (1.6-8.9); Platelet Count 368 K/mcL (140-400); Red Blood Count 4.33 M/mcL (4.19-5.50); Red Cell Distribution Width 15.4 % (11.5-14.5); Segmented Neutrophils % 74.6 %; White Blood Count 11.8 K/mcL (4.3-11.1)
[2021-05-16 06:08] LABS: INR 1.3; Prothrombin Time 14.2 Seconds (9.4-12.1)
[2021-05-16 06:32] LABS: BUN/Creatinine Ratio 27 (6-26); Blood Urea Nitrogen 33 mg/dL (8-23); Calcium 9.5 mg/dL (8.6-10.3); Carbon Dioxide 45 mEq/L (23-29); Chloride 81 mEq/L (98-107); Chol/HDL Ratio 4.8 (0-4.9); Cholesterol 134 mg/dL (< 200); Glucose 97 mg/dL (70-105); HDL Cholesterol 28 mg/dL (40-59); LDL Cholesterol,Calculated 82 mg/dL (< 100); Magnesium 2.1 mg/dL (1.6-2.6); Osmolality,Calculated 287 (280-300); Potassium 3.4 mEq/L (3.5-5.1); Sodium 135 mEq/L (136-145); Triglycerides 122 mg/dL (< 150); eGFR For African Americans > 60 (> 60); eGFR For Non-African Americans 60 (> 60)
[2021-05-16 08:24] LABS: C-Reactive Protein 80 mg/L (Less than 10)
[2021-05-16] MEDS ORDERED: levoFLOXacin 750 MG/150 ML 750 MG/150 ML BAG IVPB SCH (09:00)
[2021-05-16] MEDS ORDERED: Metoprolol XL (24 HR) Succ 50 MG TAB.ER.24H PO SCH (09:00)
[2021-05-16] MEDS: *HR* Rivaroxaban 10 MG TABLET PO SCH (09:37)
[2021-05-16] MEDS: Famotidine 20 MG TABLET PO SCH ×2 (09:38→16:31)
[2021-05-16] MEDS ORDERED: *HR* Metoprolol 5 MG/5 ML VIAL IVP PRN (10:25)
[2021-05-16] MEDS: Levalbuterol Neb 1.25 MG/3 ML IH SCH ×3 (10:46→21:22)
[2021-05-16] MEDS: Budesonide/Formoterol 160/4.5 1 PUFF INH IH SCH ×2 (10:46→21:22)
[2021-05-16] MEDS: MethylPREDNISolone 40 MG/ML VIAL IVP SCH ×2 (11:04→17:26)
[2021-05-16] MEDS ORDERED: Ipratropium/Albuterol Neb 3 ML IH SCH (12:00)
[2021-05-16] MEDS: Sennosides/Docusate Sodium TABLET PO SCH (16:47)
[2021-05-16] MEDS: Metoprolol XL (24 HR) Succ 50 MG TAB.ER.24H PO SCH (20:49)
[2021-05-16] MEDS: Furosemide 20 MG/2 ML VIAL IVP SCH (20:50)
[2021-05-17] MEDS: Levalbuterol Neb 1.25 MG/3 ML IH SCH ×3 (04:22→16:21)
[2021-05-17] MEDS: MethylPREDNISolone 40 MG/ML VIAL IVP SCH (05:43)
[2021-05-17] MEDS: Acetaminophen 325 MG TABLET PO PRN ×2 (05:46→11:01)
[2021-05-17 07:46] LABS: Basophils % 0.2 %; Hematocrit 42.7 % (37.5-50.1); Hemoglobin 14.1 g/dL (12.9-16.9); Immature Granulocytes % 0.6 % (0-4); Lymphocytes # 0.7 K/mcL (0.6-4.6); Lymphocytes % 9.8 %; Mean Corpuscular Hemoglobin 31.7 pg (28.0-33.3); Monocytes # 0.8 K/mcL (0.0-1.3); Monocytes % 11.3 %; Neutrophils # 5.2 K/mcL (1.6-8.9); Platelet Count 382 K/mcL (140-400); Red Blood Count 4.45 M/mcL (4.19-5.50); Red Cell Distribution Width 14.7 % (11.5-14.5); Segmented Neutrophils % 78.1 %; White Blood Count 6.6 K/mcL (4.3-11.1)
[2021-05-17] MEDS: Budesonide/Formoterol 160/4.5 1 PUFF INH IH SCH (07:53)
[2021-05-17 08:01] LABS: BUN/Creatinine Ratio 30 (6-26); Blood Urea Nitrogen 29 mg/dL (8-23); Calcium 9.5 mg/dL (8.6-10.3); Carbon Dioxide 44 mEq/L (23-29); Chloride 83 mEq/L (98-107); Glucose 156 mg/dL (70-105); Magnesium 2.1 mg/dL (1.6-2.6); Osmolality,Calculated 287 (280-300); Potassium 4.1 mEq/L (3.5-5.1); Sodium 134 mEq/L (136-145); eGFR For African Americans > 60 (> 60); eGFR For Non-African Americans > 60 (> 60)
[2021-05-17] MEDS ORDERED: acetaZOLAMIDE 375 MG in Water for inj. (sterile) 3.75 ML IVP ONE (08:26)
[2021-05-17] MEDS ORDERED: Azithromycin 500 MG in 0.9 % Sodium Chloride 250 ML IVPB SCH (09:00)
[2021-05-17] MEDS ORDERED: cefTRIAXone 1,000 MG in Water for inj. (sterile) 10 ML IVP SCH (09:00)
[2021-05-17] MEDS: Famotidine 20 MG TABLET PO SCH (09:28)
[2021-05-17] MEDS: Metoprolol XL (24 HR) Succ 50 MG TAB.ER.24H PO SCH (09:28)
[2021-05-17] MEDS: Sennosides/Docusate Sodium TABLET PO SCH (09:28)
[2021-05-17] MEDS: *HR* Rivaroxaban 10 MG TABLET PO SCH (09:28)
[2021-05-17] MEDS: Furosemide 20 MG/2 ML VIAL IVP SCH (09:37)
[2021-05-17] MEDS ORDERED: Gabapentin 400 MG CAPSULE PO SCH (11:00)
[2021-05-17 11:25] VITALS: BP 110/67; PULSE 86; TEMP 97.9; O2SAT 96
[2021-05-17 11:48] LABS: ABG Base Excess 10 mEq/L (-2 to 3); ABG HCO3 39 mEq/L (21-27); ABG Oxygen Saturation 89 % (95-98); ABG PCO2 65 mmHg (35-45); ABG PH 7.38 pH Units (7.32-7.45); ABG PO2 59 mmHg (85-104); ABG TCO2 41 mEq/L (20-26)
[2021-05-17] MEDS ORDERED: Metoprolol XL (24 HR) Succ 50 MG TAB.ER.24H PO SCH (21:00)
[2021-05-18] MEDS ORDERED: Spironolactone 25 MG TABLET PO SCH (09:00)
[2021-05-18] MEDS ORDERED: Pyridoxine (B-6) 50 MG TABLET PO SCH (09:00)
[2021-05-18] MEDS ORDERED: Metoprolol XL (24 HR) Succ 50 MG TAB.ER.24H PO SCH (09:00)
== END 2021-05-17 16:31 | disposition short-term general hospital (02) | DRG 871 ==
LOC: 2NENU
PROVIDERS: ADMIT Hospitalist; ATTEND Hospitalist

== ENCOUNTER 2021-08-23 17:27 | Inpatient (IN) ==
[2021-08-23] MEDS ORDERED: Nitroglycerin 0.4 MG TAB.SUBL SL STA (19:07)
[2021-08-23] MEDS ORDERED: Furosemide 40 MG/4 ML VIAL IVP ONE (19:07)
[2021-08-23 20:00] LABS: BUN/Creatinine Ratio 14 (6-26); Blood Urea Nitrogen 7 mg/dL (8-23); Calcium 8.8 mg/dL (8.6-10.3); Carbon Dioxide 28 mEq/L (23-29); Chloride 92 mEq/L (98-107); Glucose 93 mg/dL (70-105); Osmolality,Calculated 258 (280-300); Potassium 5.5 mEq/L (3.5-5.1); Sodium 125 mEq/L (136-145); Troponin I < 0.03 ng/mL (< 0.04); eGFR For African Americans > 60 (> 60); eGFR For Non-African Americans > 60 (> 60)
[2021-08-23 21:29] LABS: Influenza A PCR Negative (Negative); Influenza B PCR Negative (Negative); Resp. Syncytial Virus PCR Negative (Negative)
[2021-08-23 21:34] LABS: SARS-CoV-2 by PCR (In House) Negative (Negative)
[2021-08-23] MEDS ORDERED: Ondansetron 4 MG/2 ML VIAL IVP PRN (22:06)
[2021-08-23] MEDS ORDERED: Naloxone 0.4 MG/ML INJ IVP PRN (22:06)
[2021-08-23 23:14] LABS: BUN/Creatinine Ratio 11 (6-26); Blood Urea Nitrogen 7 mg/dL (8-23); Calcium 9.1 mg/dL (8.6-10.3); Carbon Dioxide 31 mEq/L (23-29); Chloride 91 mEq/L (98-107); Glucose 225 mg/dL (70-105); Magnesium 1.7 mg/dL (1.6-2.6); Osmolality,Calculated 267 (280-300); Potassium 4.3 mEq/L (3.5-5.1); Sodium 126 mEq/L (136-145); eGFR For African Americans > 60 (> 60); eGFR For Non-African Americans > 60 (> 60)
[2021-08-23] MEDS ORDERED: Perflutren Lipid Microsphere 1.3 ML in 0.9 % Sodium Chloride 8.7 ML IVP PRN (23:35)
[2021-08-23] MEDS ORDERED: Dextrose 4 GM Chewable Tablets PO PRN ×2 (23:52)
[2021-08-23] MEDS ORDERED: D5% in Water 1,000 ML IVC PRN (23:52)
[2021-08-23] MEDS ORDERED: *HR* Dextrose 50 % in Water (Syg) 50 ML SYRINGE IVP PRN (23:52)
[2021-08-24] MEDS: Insulin LISPRO 300 UNITS/3 ML VIAL SUBQ SCH ×4 (01:18→16:04)
[2021-08-24 05:54] LABS: Hematocrit 41.4 % (37.5-50.1); Hemoglobin 14.2 g/dL (12.9-16.9); Mean Corpuscular HGB Conc 34.3 g/dL (31.6-35.5); Mean Corpuscular Hemoglobin 31.7 pg (28.0-33.3); Mean Corpuscular Volume 92.4 fL (83.0-100.0); Mean Platelet Volume 10.7 fL (9.4-12.4); Platelet Count 401 K/mcL (140-400); Red Blood Count 4.48 M/mcL (4.19-5.50); Red Cell Distribution Width 14.6 % (11.5-14.5); White Blood Count 10.5 K/mcL (4.3-11.1)
[2021-08-24 05:56] LABS: INR 1.6; Prothrombin Time 18.1 Seconds (9.4-12.1)
[2021-08-24 06:21] LABS: Alanine Aminotransferase 6 Units/L (7-52); Albumin 3.6 g/dL (3.5-5.7); Albumin/Globulin Ratio 1.6 (1.1-2.2); Alkaline Phosphatase 92 Units/L (34-104); Aspartate Amino Transferase 16 Units/L (13-39); BUN/Creatinine Ratio 12 (6-26); Bilirubin,Direct 0.1 mg/dL (0.0-0.2); Bilirubin,Indirect 0.3 mg/dL (0.0-1.0); Bilirubin,Total 0.4 mg/dL (0.3-1.0); Blood Urea Nitrogen 7 mg/dL (8-23); Calcium 9.6 mg/dL (8.6-10.3); Carbon Dioxide 32 mEq/L (23-29); Chloride 94 mEq/L (98-107); Globulin 2.2 g/dL (2.4-3.5); Glucose 46 mg/dL (70-105); Magnesium 1.9 mg/dL (1.6-2.6); Osmolality,Calculated 273 (280-300); Phosphorous 3.4 mg/dL (2.7-4.5); Potassium 4.1 mEq/L (3.5-5.1); Sodium 134 mEq/L (136-145); Total Protein 5.8 g/dL (6.4-8.9); Troponin I < 0.03 ng/mL (< 0.04); eGFR For African Americans > 60 (> 60); eGFR For Non-African Americans > 60 (> 60)
[2021-08-24 06:22] LABS: Thyroid Stimulating Hormone 0.055 mcIU/mL (0.340-5.600)
[2021-08-24 06:36] LABS: Eosinophils # 0.4 K/mcL (0.0-0.6); Lymphocytes # 2.2 K/mcL (0.6-4.6); Monocytes # 1.3 K/mcL (0.0-1.3); Neutrophils # 6.6 K/mcL (1.6-8.9)
[2021-08-24] MEDS: Magnesium Oxide 400 MG TABLET PO SCH (07:54)
[2021-08-24] MEDS: *HR* Rivaroxaban 10 MG TABLET PO SCH (07:54)
[2021-08-24] MEDS: Cyanocobalamin (B-12) 1,000 MCG TABLET PO SCH (07:54)
[2021-08-24] MEDS: *HR* Buprenorphine HCl 8 MG TAB.SUBL SL SCH ×3 (07:54→21:39)
[2021-08-24] MEDS: Cholecalciferol (D-3) 1,000 UNIT (25MCG) TABLET PO SCH (07:54)
[2021-08-24] MEDS: Famotidine 20 MG TABLET PO SCH ×2 (07:54→16:04)
[2021-08-24] MEDS: Pyridoxine (B-6) 50 MG TABLET PO SCH (07:54)
[2021-08-24] MEDS: Furosemide 40 MG/4 ML VIAL IVP SCH ×2 (07:55→21:40)
[2021-08-24] MEDS ORDERED: *HR* Metformin 500 MG TABLET PO SCH (08:00)
[2021-08-24] MEDS ORDERED: Azithromycin 250 MG TABLET PO SCH (09:00)
[2021-08-24] MEDS: Gabapentin 400 MG CAPSULE PO SCH ×3 (09:59→21:40)
[2021-08-24] MEDS: Metoprolol XL (24 HR) Succ 50 MG TAB.ER.24H PO SCH ×2 (09:59→21:40)
[2021-08-24] MEDS: Acetaminophen 325 MG TABLET PO PRN (09:59)
[2021-08-24] MEDS: Tiotropium 10 INH DOSE IH SCH (11:49)
[2021-08-24] MEDS: Budesonide/Formoterol 80/4.5 1 PUFF INH IH SCH ×2 (11:49→19:30)
[2021-08-24 12:32] LABS: BUN/Creatinine Ratio 12 (6-26); Blood Urea Nitrogen 8 mg/dL (8-23); Calcium 9.4 mg/dL (8.6-10.3); Carbon Dioxide 35 mEq/L (23-29); Chloride 93 mEq/L (98-107); Glucose 186 mg/dL (70-105); Osmolality,Calculated 279 (280-300); Potassium 4.9 mEq/L (3.5-5.1); Sodium 133 mEq/L (136-145); eGFR For African Americans > 60 (> 60); eGFR For Non-African Americans > 60 (> 60)
[2021-08-24 12:44] LABS: Potassium,Urine 24.7 mEq/L; Sodium, Urine 45.5 mEq/L
[2021-08-24 12:56] LABS: Bilirubin,Urine Negative (Negative); Blood,Urine Large (Negative); Clarity,Urine Clear (Clear); Color,Urine Light-Yellow (Yellow); Glucose,Urine (UA) Normal (Normal); Hyaline Casts,Urine Moderate per lpf (None Seen); Ketones,Urine 10 mg/dL (Negative); Leukocyte Esterase,Urine Negative (Negative); Mucus,Urine Few per lpf (None-Few); Nitrite,Urine Negative (Negative); PH,Urine 5.5 pH Units (5.0-8.0); Protein,Urine 30 mg/dL (Neg-Trace); RBC,Urine 50-100 per hpf (0-3); Urobilinogen,Urine Normal (Normal)
[2021-08-24] MEDS: Albuterol 2.5 MG/3 ML NEBULIZER IH PRN (19:30)
[2021-08-25] MEDS: Acetaminophen 325 MG TABLET PO PRN ×2 (03:51→10:18)
[2021-08-25] MEDS: Tiotropium 10 INH DOSE IH SCH (07:44)
[2021-08-25] MEDS: Budesonide/Formoterol 80/4.5 1 PUFF INH IH SCH ×2 (07:44→20:51)
[2021-08-25] MEDS ORDERED: Perflutren Lipid Microsphere 1.3 ML in 0.9 % Sodium Chloride 8.7 ML IVP PRN (08:26)
[2021-08-25] MEDS: Insulin LISPRO 300 UNITS/3 ML VIAL SUBQ SCH ×3 (08:51→17:34)
[2021-08-25] MEDS: *HR* Buprenorphine HCl 8 MG TAB.SUBL SL SCH ×3 (10:06→19:34)
[2021-08-25] MEDS: Gabapentin 400 MG CAPSULE PO SCH ×3 (10:06→19:33)
[2021-08-25] MEDS: Famotidine 20 MG TABLET PO SCH ×2 (10:07→16:08)
[2021-08-25] MEDS: Cholecalciferol (D-3) 1,000 UNIT (25MCG) TABLET PO SCH (10:07)
[2021-08-25] MEDS: Metoprolol XL (24 HR) Succ 50 MG TAB.ER.24H PO SCH ×2 (10:07→19:33)
[2021-08-25] MEDS: *HR* Rivaroxaban 10 MG TABLET PO SCH (10:07)
[2021-08-25] MEDS: Sacubitril/Valsartan 24/26 MG 1 TABLET PO SCH ×2 (10:08→19:32)
[2021-08-25] MEDS: Cyanocobalamin (B-12) 1,000 MCG TABLET PO SCH (10:08)
[2021-08-25] MEDS: Furosemide 40 MG/4 ML VIAL IVP SCH ×2 (10:08→19:35)
[2021-08-25] MEDS: Pyridoxine (B-6) 50 MG TABLET PO SCH (10:18)
[2021-08-25] MEDS: Magnesium Oxide 400 MG TABLET PO SCH (10:21)
[2021-08-25] MEDS: predniSONE 20 MG TABLET PO SCH (16:08)
[2021-08-25] MEDS: Albuterol 2.5 MG/3 ML NEBULIZER IH PRN (20:57)
[2021-08-26 00:48] LABS: ABG Base Excess 7 mEq/L (-2 to 3); ABG HCO3 29 mEq/L (21-27); ABG Oxygen Saturation 100 % (95-98); ABG PCO2 33 mmHg (35-45); ABG PH 7.55 pH Units (7.32-7.45); ABG PO2 187 mmHg (85-104); ABG TCO2 30 mEq/L (20-26)
[2021-08-26] MEDS: Budesonide/Formoterol 80/4.5 1 PUFF INH IH SCH ×2 (07:57→20:08)
[2021-08-26] MEDS: Tiotropium 10 INH DOSE IH SCH (07:57)
[2021-08-26 08:54] LABS: Basophils % 0.4 %; Hematocrit 45.4 % (37.5-50.1); Hemoglobin 15.1 g/dL (12.9-16.9); Immature Granulocytes % 0.4 % (0-4); Lymphocytes % 9.2 %; Mean Corpuscular HGB Conc 33.3 g/dL (31.6-35.5); Mean Corpuscular Hemoglobin 31.1 pg (28.0-33.3); Mean Corpuscular Volume 93.4 fL (83.0-100.0); Mean Platelet Volume 10.5 fL (9.4-12.4); Monocytes # 1.3 K/mcL (0.0-1.3); Monocytes % 12.3 %; Neutrophils # 8.5 K/mcL (1.6-8.9); Platelet Count 397 K/mcL (140-400); Red Blood Count 4.86 M/mcL (4.19-5.50); Red Cell Distribution Width 14.9 % (11.5-14.5); Segmented Neutrophils % 77.7 %; White Blood Count 10.9 K/mcL (4.3-11.1)
[2021-08-26] MEDS: Insulin LISPRO 300 UNITS/3 ML VIAL SUBQ SCH ×3 (09:13→17:11)
[2021-08-26 09:14] LABS: Alanine Aminotransferase 4 Units/L (7-52); Albumin 3.6 g/dL (3.5-5.7); Albumin/Globulin Ratio 1.6 (1.1-2.2); Alkaline Phosphatase 85 Units/L (34-104); Aspartate Amino Transferase 12 Units/L (13-39); BUN/Creatinine Ratio 24 (6-26); Bilirubin,Total 0.3 mg/dL (0.3-1.0); Blood Urea Nitrogen 17 mg/dL (8-23); Calcium 9.2 mg/dL (8.6-10.3); Carbon Dioxide 35 mEq/L (23-29); Chloride 94 mEq/L (98-107); Globulin 2.2 g/dL (2.4-3.5); Glucose 122 mg/dL (70-105); Osmolality,Calculated 279 (280-300); Potassium 4.9 mEq/L (3.5-5.1); Sodium 133 mEq/L (136-145); Total Protein 5.8 g/dL (6.4-8.9); eGFR For African Americans > 60 (> 60); eGFR For Non-African Americans > 60 (> 60)
[2021-08-26] MEDS ORDERED: Azithromycin 250 MG TABLET PO SCH (09:15)
[2021-08-26] MEDS: predniSONE 20 MG TABLET PO SCH (10:17)
[2021-08-26] MEDS: Pyridoxine (B-6) 50 MG TABLET PO SCH (10:17)
[2021-08-26] MEDS: Cholecalciferol (D-3) 1,000 UNIT (25MCG) TABLET PO SCH (10:17)
[2021-08-26] MEDS: Cyanocobalamin (B-12) 1,000 MCG TABLET PO SCH (10:18)
[2021-08-26] MEDS: Famotidine 20 MG TABLET PO SCH ×2 (10:18→17:01)
[2021-08-26] MEDS: Magnesium Oxide 400 MG TABLET PO SCH (10:18)
[2021-08-26] MEDS: Sacubitril/Valsartan 24/26 MG 1 TABLET PO SCH ×2 (10:18→20:17)
[2021-08-26] MEDS: *HR* Rivaroxaban 10 MG TABLET PO SCH (10:19)
[2021-08-26] MEDS: Gabapentin 400 MG CAPSULE PO SCH ×3 (10:19→20:17)
[2021-08-26] MEDS: *HR* Buprenorphine HCl 8 MG TAB.SUBL SL SCH ×3 (10:19→20:17)
[2021-08-26] MEDS: Metoprolol XL (24 HR) Succ 50 MG TAB.ER.24H PO SCH ×2 (10:19→20:18)
[2021-08-26] MEDS: Furosemide 40 MG/4 ML VIAL IVP SCH ×2 (10:20→20:18)
[2021-08-26] MEDS ORDERED: Ampicillin/Sulbactam 1,500 MG in 0.9 % Sodium Chloride Mini Bag 100 ML IVPB SCH (12:00)
[2021-08-26 14:07] LABS: VBG HCO3 37 mEq/L (21-27); VBG PCO2 63 mmHg (41-51); VBG PH 7.38 pH Units (7.32-7.42); VBG PO2 43 mmHg (25-50)
[2021-08-26] MEDS: Doxycycline 100 MG in 0.9 % Sodium Chloride Mini Bag 100 ML IVPB SCH (17:02)
[2021-08-26] MEDS: Piperacillin/Tazobactam 3.375 GM in 0.9 % Sodium Chloride Mini Bag 100 ML IVPB SCH (17:03)
[2021-08-26] MEDS ORDERED: NON-FORMULARY MEDICATION 1 EACH EACH (Alendronate Sodium [Fosamax] 70 MG Tablet) PO SCH (23:47)
[2021-08-27] MEDS: Piperacillin/Tazobactam 3.375 GM in 0.9 % Sodium Chloride Mini Bag 100 ML IVPB SCH ×2 (00:06→08:30)
[2021-08-27 04:22] LABS: Basophils % 0.3 %; Eosinophils % 0.2 %; Hematocrit 43.2 % (37.5-50.1); Hemoglobin 14.3 g/dL (12.9-16.9); Immature Granulocytes % 0.7 % (0-4); Lymphocytes # 1.3 K/mcL (0.6-4.6); Lymphocytes % 12.1 %; Mean Corpuscular HGB Conc 33.1 g/dL (31.6-35.5); Mean Corpuscular Hemoglobin 31.2 pg (28.0-33.3); Mean Corpuscular Volume 94.1 fL (83.0-100.0); Mean Platelet Volume 10.4 fL (9.4-12.4); Monocytes # 1.3 K/mcL (0.0-1.3); Monocytes % 11.7 %; Neutrophils # 8.3 K/mcL (1.6-8.9); Platelet Count 383 K/mcL (140-400); Red Blood Count 4.59 M/mcL (4.19-5.50); Red Cell Distribution Width 15.2 % (11.5-14.5); White Blood Count 11.1 K/mcL (4.3-11.1)
[2021-08-27 04:40] LABS: Alanine Aminotransferase 4 Units/L (7-52); Albumin 3.3 g/dL (3.5-5.7); Albumin/Globulin Ratio 1.4 (1.1-2.2); Alkaline Phosphatase 66 Units/L (34-104); Aspartate Amino Transferase 12 Units/L (13-39); BUN/Creatinine Ratio 24 (6-26); Bilirubin,Total 0.4 mg/dL (0.3-1.0); Blood Urea Nitrogen 17 mg/dL (8-23); Carbon Dioxide 37 mEq/L (23-29); Chloride 94 mEq/L (98-107); Globulin 2.4 g/dL (2.4-3.5); Glucose 123 mg/dL (70-105); Osmolality,Calculated 283 (280-300); Sodium 135 mEq/L (136-145); Total Protein 5.7 g/dL (6.4-8.9); eGFR For African Americans > 60 (> 60); eGFR For Non-African Americans > 60 (> 60)
[2021-08-27] MEDS: Doxycycline 100 MG in 0.9 % Sodium Chloride Mini Bag 100 ML IVPB SCH (05:32)
[2021-08-27] MEDS: Insulin LISPRO 300 UNITS/3 ML VIAL SUBQ SCH ×2 (07:35→13:00)
[2021-08-27] MEDS: Tiotropium 10 INH DOSE IH SCH (08:12)
[2021-08-27] MEDS: Budesonide/Formoterol 80/4.5 1 PUFF INH IH SCH (08:12)
[2021-08-27] MEDS: Famotidine 20 MG TABLET PO SCH (08:28)
[2021-08-27] MEDS: predniSONE 20 MG TABLET PO SCH (08:28)
[2021-08-27] MEDS: Gabapentin 400 MG CAPSULE PO SCH (08:28)
[2021-08-27] MEDS: Cholecalciferol (D-3) 1,000 UNIT (25MCG) TABLET PO SCH (08:29)
[2021-08-27] MEDS: Cyanocobalamin (B-12) 1,000 MCG TABLET PO SCH (08:29)
[2021-08-27] MEDS: Pyridoxine (B-6) 50 MG TABLET PO SCH (08:29)
[2021-08-27] MEDS: Magnesium Oxide 400 MG TABLET PO SCH (08:29)
[2021-08-27] MEDS: Metoprolol XL (24 HR) Succ 50 MG TAB.ER.24H PO SCH (08:29)
[2021-08-27] MEDS: Sacubitril/Valsartan 24/26 MG 1 TABLET PO SCH (08:30)
[2021-08-27] MEDS: Furosemide 40 MG/4 ML VIAL IVP SCH (08:30)
[2021-08-27] MEDS: *HR* Buprenorphine HCl 8 MG TAB.SUBL SL SCH ×2 (08:37→13:00)
[2021-08-27 15:00] VITALS: BP 130/77; PULSE 117; TEMP 98.1; O2SAT 96
[2021-08-28] MEDS ORDERED: Furosemide 40 MG/4 ML VIAL IVP SCH (09:00)
== END 2021-08-27 17:50 | disposition home or self-care (01) | DRG 291 ==
LOC: EMEROOARM 17:27 → 3BNU 17:27 → SUATTDRO 21:10 → 3BNU 22:02 → SUATTDRO 08-25 16:33
PROVIDERS: ADMIT Nurse Practitioner; ATTEND Nurse Practitioner

== ENCOUNTER 2021-09-15 13:50 | Inpatient (IN) ==
[2021-09-15 16:30] LABS: Basophils # 0.1 K/mcL (0.0-0.2); Basophils % 0.3 %; Eosinophils # 0.1 K/mcL (0.0-0.6); Eosinophils % 0.4 %; Hemoglobin 18.4 g/dL (12.9-16.9); Immature Granulocytes % 0.5 % (0-4); Lymphocytes # 1.7 K/mcL (0.6-4.6); Lymphocytes % 10.1 %; Mean Corpuscular HGB Conc 32.6 g/dL (31.6-35.5); Mean Corpuscular Hemoglobin 31.2 pg (28.0-33.3); Mean Corpuscular Volume 95.6 fL (83.0-100.0); Mean Platelet Volume 10.6 fL (9.4-12.4); Monocytes # 1.5 K/mcL (0.0-1.3); Monocytes % 9.3 %; Neutrophils # 13.1 K/mcL (1.6-8.9); Platelet Count 364 K/mcL (140-400); Segmented Neutrophils % 79.4 %; White Blood Count 16.4 K/mcL (4.3-11.1)
[2021-09-15 16:32] LABS: Hematocrit 56.4 % (37.5-50.1)
[2021-09-15 16:34] LABS: VBG HCO3 31 mEq/L (21-27); VBG PCO2 63 mmHg (41-51); VBG PH 7.31 pH Units (7.32-7.42); VBG PO2 47 mmHg (25-50)
[2021-09-15 16:51] LABS: Alanine Aminotransferase 8 Units/L (7-52); Albumin 5.3 g/dL (3.5-5.7); Albumin/Globulin Ratio 1.4 (1.1-2.2); Alkaline Phosphatase 107 Units/L (34-104); Aspartate Amino Transferase 22 Units/L (13-39); BUN/Creatinine Ratio 28 (6-26); Bilirubin,Direct 0.1 mg/dL (0.0-0.2); Bilirubin,Indirect 0.9 mg/dL (0.0-1.0); Blood Urea Nitrogen 32 mg/dL (8-23); Calcium 11.1 mg/dL (8.6-10.3); Carbon Dioxide 32 mEq/L (23-29); Chloride 92 mEq/L (98-107); Globulin 3.8 g/dL (2.4-3.5); Glucose 104 mg/dL (70-105); Osmolality,Calculated 287 (280-300); Potassium 5.2 mEq/L (3.5-5.1); Sodium 135 mEq/L (136-145); Total Protein 9.1 g/dL (6.4-8.9); Troponin I < 0.03 ng/mL (< 0.04); eGFR For African Americans > 60 (> 60); eGFR For Non-African Americans > 60 (> 60)
[2021-09-15] MEDS ORDERED: Isovue-370 500 ML BOTTLE IVP ONE (17:05)
[2021-09-15 17:24] LABS: Influenza A PCR Negative (Negative); Influenza B PCR Negative (Negative); Resp. Syncytial Virus PCR Negative (Negative); SARS-CoV-2 by PCR (In House) Negative (Negative)
[2021-09-15 18:20] LABS: INR 1.3
[2021-09-15 18:23] LABS: Activated Partial Thrombo Time 42.9 Seconds (26.0-36.0)
[2021-09-15] MEDS ORDERED: Vancomycin 1,250 MG/262.5 ML IV.SOLN IVPB ONE (18:45)
[2021-09-15] MEDS ORDERED: Piperacillin/Tazobactam 3.375 GM in 0.9 % Sodium Chloride Mini Bag 100 ML IVPB ONE (18:47)
[2021-09-15] MEDS ORDERED: *HR* Metoprolol 5 MG/5 ML VIAL IVP ONE ×3 (19:07→23:55)
[2021-09-15] MEDS ORDERED: Metoprolol XL (24 HR) Succ 50 MG TAB.ER.24H PO STA (19:15)
[2021-09-15] MEDS ORDERED: Furosemide 40 MG/4 ML VIAL IVP ONE (19:28)
[2021-09-15] MEDS ORDERED: 0.9 % Sodium Chloride 500 ML IVC ONE (20:02)
[2021-09-15] MEDS ORDERED: Naloxone 0.4 MG/ML INJ IVP PRN (21:41)
[2021-09-15 22:24] LABS: ABG Base Excess 3 mEq/L (-2 to 3); ABG HCO3 31 mEq/L (21-27); ABG Oxygen Saturation 84 % (95-98); ABG PCO2 58 mmHg (35-45); ABG PH 7.33 pH Units (7.32-7.45); ABG PO2 54 mmHg (85-104); ABG TCO2 33 mEq/L (20-26)
[2021-09-15] MEDS: MethylPREDNISolone 40 MG/ML VIAL IVP SCH (22:25)
[2021-09-15] MEDS ORDERED: 0.9 % Sodium Chloride 500 ML IV ONE (22:47)
[2021-09-15] MEDS: Ipratropium/Albuterol Neb 3 ML IH SCH (23:29)
[2021-09-15] MEDS: Budesonide/Formoterol 160/4.5 1 PUFF INH IH SCH (23:29)
[2021-09-15] MEDS ORDERED: Acetaminophen IV 500 MG/50 ML BAG IVPB ONE (23:54)
[2021-09-16 00:34] LABS: Basophils # 0.1 K/mcL (0.0-0.2); Basophils % 0.4 %; Immature Granulocytes % 0.7 % (0-4); Lymphocytes # 0.6 K/mcL (0.6-4.6); Lymphocytes % 2.5 %; Mean Corpuscular HGB Conc 32.8 g/dL (31.6-35.5); Mean Corpuscular Hemoglobin 31.4 pg (28.0-33.3); Mean Corpuscular Volume 95.9 fL (83.0-100.0); Mean Platelet Volume 11.2 fL (9.4-12.4); Monocytes # 1.7 K/mcL (0.0-1.3); Monocytes % 7.4 %; Platelet Count 320 K/mcL (140-400); Red Cell Distribution Width 16.1 % (11.5-14.5); White Blood Count 22.4 K/mcL (4.3-11.1)
[2021-09-16 00:43] LABS: BUN/Creatinine Ratio 29 (6-26); Blood Urea Nitrogen 26 mg/dL (8-23); Calcium 9.5 mg/dL (8.6-10.3); Carbon Dioxide 30 mEq/L (23-29); Chloride 97 mEq/L (98-107); Glucose 142 mg/dL (70-105); Osmolality,Calculated 289 (280-300); Potassium 4.9 mEq/L (3.5-5.1); Sodium 136 mEq/L (136-145); eGFR For African Americans > 60 (> 60); eGFR For Non-African Americans > 60 (> 60)
[2021-09-16 00:44] LABS: Hemoglobin 15.4 g/dL (12.9-16.9)
[2021-09-16 00:45] LABS: BUN/Creatinine Ratio 31 (6-26); Blood Urea Nitrogen 27 mg/dL (8-23); Calcium 9.5 mg/dL (8.6-10.3); Carbon Dioxide 30 mEq/L (23-29); Chloride 98 mEq/L (98-107); Glucose 137 mg/dL (70-105); Osmolality,Calculated 293 (280-300); Potassium 4.9 mEq/L (3.5-5.1); Sodium 138 mEq/L (136-145); eGFR For African Americans > 60 (> 60); eGFR For Non-African Americans > 60 (> 60)
[2021-09-16] MEDS ORDERED: 0.9 % Sodium Chloride 500 ML IV ONE (01:21)
[2021-09-16] MEDS: Ipratropium/Albuterol Neb 3 ML IH SCH ×6 (03:22→23:34)
[2021-09-16] MEDS: Piperacillin/Tazobactam 3.375 GM in 0.9 % Sodium Chloride Mini Bag 100 ML IVPB SCH ×2 (04:51→16:46)
[2021-09-16] MEDS: Budesonide/Formoterol 160/4.5 1 PUFF INH IH SCH ×2 (07:46→20:10)
[2021-09-16] MEDS: *HR* Rivaroxaban 10 MG TABLET PO SCH (07:59)
[2021-09-16] MEDS: Vancomycin 1,250 MG/262.5 ML IV.SOLN IVPB SCH ×2 (07:59→20:40)
[2021-09-16] MEDS: MethylPREDNISolone 40 MG/ML VIAL IVP SCH (07:59)
[2021-09-16 12:40] LABS: ABG Base Excess 3 mEq/L (-2 to 3); ABG HCO3 31 mEq/L (21-27); ABG Oxygen Saturation 90 % (95-98); ABG PCO2 59 mmHg (35-45); ABG PH 7.33 pH Units (7.32-7.45); ABG PO2 65 mmHg (85-104); ABG TCO2 33 mEq/L (20-26)
[2021-09-16] MEDS ORDERED: *HR* Metoprolol 5 MG/5 ML VIAL IVP ONE (17:21)
[2021-09-16] MEDS: Metoprolol XL (24 HR) Succ 50 MG TAB.ER.24H PO SCH (20:42)
[2021-09-16] MEDS: Acetaminophen 325 MG TABLET PO PRN (21:07)
[2021-09-17] MEDS: Ipratropium/Albuterol Neb 3 ML IH SCH ×6 (03:52→23:45)
[2021-09-17] MEDS: Acetaminophen 325 MG TABLET PO PRN ×3 (05:50→17:39)
[2021-09-17] MEDS: Piperacillin/Tazobactam 3.375 GM in 0.9 % Sodium Chloride Mini Bag 100 ML IVPB SCH ×2 (05:56→17:33)
[2021-09-17] MEDS: *HR* Rivaroxaban 10 MG TABLET PO SCH (08:04)
[2021-09-17] MEDS: MethylPREDNISolone 40 MG/ML VIAL IVP SCH (08:05)
[2021-09-17] MEDS: Metoprolol XL (24 HR) Succ 50 MG TAB.ER.24H PO SCH ×2 (08:05→20:48)
[2021-09-17] MEDS: Insulin LISPRO 300 UNITS/3 ML VIAL SUBQ SCH ×3 (08:10→19:37)
[2021-09-17 08:11] LABS: Basophils % 0.2 %; Eosinophils % 0.1 %; Hematocrit 40.4 % (37.5-50.1); Immature Granulocytes % 0.7 % (0-4); Lymphocytes # 0.9 K/mcL (0.6-4.6); Lymphocytes % 5.3 %; Mean Corpuscular HGB Conc 33.9 g/dL (31.6-35.5); Mean Corpuscular Hemoglobin 31.9 pg (28.0-33.3); Mean Platelet Volume 11.4 fL (9.4-12.4); Monocytes # 1.9 K/mcL (0.0-1.3); Monocytes % 10.8 %; Neutrophils # 14.5 K/mcL (1.6-8.9); Platelet Count 268 K/mcL (140-400); Red Cell Distribution Width 15.9 % (11.5-14.5); Segmented Neutrophils % 82.9 %; White Blood Count 17.5 K/mcL (4.3-11.1)
[2021-09-17 08:13] LABS: Hemoglobin 13.7 g/dL (12.9-16.9)
[2021-09-17 08:29] LABS: BUN/Creatinine Ratio 42 (6-26); Blood Urea Nitrogen 31 mg/dL (8-23); Calcium 9.5 mg/dL (8.6-10.3); Carbon Dioxide 31 mEq/L (23-29); Chloride 97 mEq/L (98-107); Glucose 143 mg/dL (70-105); Magnesium 2.1 mg/dL (1.6-2.6); Osmolality,Calculated 285 (280-300); Potassium 4.7 mEq/L (3.5-5.1); Sodium 133 mEq/L (136-145); eGFR For African Americans > 60 (> 60); eGFR For Non-African Americans > 60 (> 60)
[2021-09-17] MEDS ORDERED: Metoprolol XL (24 HR) Succ 50 MG TAB.ER.24H PO ONE (09:30)
[2021-09-17] MEDS: Budesonide/Formoterol 160/4.5 1 PUFF INH IH SCH ×2 (09:35→20:29)
[2021-09-17] MEDS: Vancomycin 1,500 MG/265 ML IV.SOLN IVPB SCH ×2 (09:54→21:36)
[2021-09-17] MEDS: Torsemide 20 MG TABLET PO SCH ×2 (10:25→15:27)
[2021-09-17] MEDS: *HR* Buprenorphine HCl 2 MG SUBLINGUAL TABLET SL SCH (11:54)
[2021-09-17] MEDS: Vancomycin 1,250 MG/262.5 ML IV.SOLN IVPB SCH (12:51)
[2021-09-17] MEDS: Gabapentin 400 MG CAPSULE PO SCH ×2 (15:27→20:47)
[2021-09-17] MEDS ORDERED: *HR* Metoprolol 5 MG/5 ML VIAL IVP ONE (17:28)
[2021-09-17] MEDS: Famotidine 20 MG TABLET PO SCH (17:36)
[2021-09-17] MEDS: *HR* Buprenorphine HCl 8 MG TAB.SUBL SL SCH (20:47)
[2021-09-17] MEDS: Sacubitril/Valsartan 24/26 MG 1 TABLET PO SCH (20:48)
[2021-09-18] MEDS: Acetaminophen 325 MG TABLET PO PRN ×3 (02:24→16:12)
[2021-09-18] MEDS: Ipratropium/Albuterol Neb 3 ML IH SCH ×5 (04:28→20:27)
[2021-09-18] MEDS: Piperacillin/Tazobactam 3.375 GM in 0.9 % Sodium Chloride Mini Bag 100 ML IVPB SCH ×2 (05:11→16:13)
[2021-09-18 05:45] LABS: Basophils % 0.1 %; Hematocrit 38.4 % (37.5-50.1); Hemoglobin 12.7 g/dL (12.9-16.9); Immature Granulocytes % 0.5 % (0-4); Lymphocytes # 1.1 K/mcL (0.6-4.6); Lymphocytes % 9.2 %; Mean Corpuscular HGB Conc 33.1 g/dL (31.6-35.5); Mean Corpuscular Hemoglobin 30.9 pg (28.0-33.3); Mean Corpuscular Volume 93.4 fL (83.0-100.0); Mean Platelet Volume 11.6 fL (9.4-12.4); Monocytes # 1.7 K/mcL (0.0-1.3); Platelet Count 264 K/mcL (140-400); Red Blood Count 4.11 M/mcL (4.19-5.50); Red Cell Distribution Width 15.8 % (11.5-14.5); Segmented Neutrophils % 76.2 %; White Blood Count 11.9 K/mcL (4.3-11.1)
[2021-09-18 06:15] LABS: BUN/Creatinine Ratio 42 (6-26); Blood Urea Nitrogen 38 mg/dL (8-23); Calcium 8.9 mg/dL (8.6-10.3); Carbon Dioxide 32 mEq/L (23-29); Chloride 96 mEq/L (98-107); Glucose 122 mg/dL (70-105); Osmolality,Calculated 290 (280-300); Potassium 4.3 mEq/L (3.5-5.1); Sodium 135 mEq/L (136-145); eGFR For African Americans > 60 (> 60); eGFR For Non-African Americans > 60 (> 60)
[2021-09-18] MEDS: Budesonide/Formoterol 160/4.5 1 PUFF INH IH SCH ×2 (08:06→20:27)
[2021-09-18] MEDS: Torsemide 20 MG TABLET PO SCH ×2 (09:01→16:12)
[2021-09-18] MEDS: Insulin LISPRO 300 UNITS/3 ML VIAL SUBQ SCH ×3 (09:01→18:31)
[2021-09-18] MEDS: Sennosides 8.6 MG TABLET PO SCH (09:01)
[2021-09-18] MEDS: Gabapentin 400 MG CAPSULE PO SCH ×4 (09:02→20:20)
[2021-09-18] MEDS: Sacubitril/Valsartan 24/26 MG 1 TABLET PO SCH ×2 (09:02→20:15)
[2021-09-18] MEDS: Famotidine 20 MG TABLET PO SCH ×2 (09:02→16:12)
[2021-09-18] MEDS: Cyanocobalamin (B-12) 1,000 MCG TABLET PO SCH (09:03)
[2021-09-18] MEDS: Pyridoxine (B-6) 50 MG TABLET PO SCH (09:03)
[2021-09-18] MEDS: Metoprolol XL (24 HR) Succ 50 MG TAB.ER.24H PO SCH ×2 (09:03→20:19)
[2021-09-18] MEDS: Magnesium Oxide 400 MG TABLET PO SCH (09:03)
[2021-09-18] MEDS: *HR* Rivaroxaban 10 MG TABLET PO SCH (09:03)
[2021-09-18] MEDS: *HR* Buprenorphine HCl 8 MG TAB.SUBL SL SCH ×2 (09:04→20:23)
[2021-09-18] MEDS: MethylPREDNISolone 40 MG/ML VIAL IVP SCH (09:04)
[2021-09-18] MEDS: Spironolactone 25 MG TABLET PO SCH (09:04)
[2021-09-18] MEDS: Vancomycin 1,500 MG/265 ML IV.SOLN IVPB SCH (09:27)
[2021-09-18] MEDS: *HR* Buprenorphine HCl 2 MG SUBLINGUAL TABLET SL SCH (11:15)
[2021-09-18] MEDS ORDERED: *HR* Metoprolol 5 MG/5 ML VIAL IVP ONE (18:21)
[2021-09-19] MEDS: Ipratropium/Albuterol Neb 3 ML IH SCH ×4 (00:03→11:28)
[2021-09-19] MEDS: Acetaminophen 325 MG TABLET PO PRN ×2 (00:14→06:49)
[2021-09-19] MEDS: Piperacillin/Tazobactam 3.375 GM in 0.9 % Sodium Chloride Mini Bag 100 ML IVPB SCH (05:38)
[2021-09-19 06:02] LABS: Basophils % 0.1 %; Hematocrit 39.9 % (37.5-50.1); Hemoglobin 13.3 g/dL (12.9-16.9); Immature Granulocytes % 0.6 % (0-4); Lymphocytes # 1.6 K/mcL (0.6-4.6); Mean Corpuscular HGB Conc 33.3 g/dL (31.6-35.5); Mean Corpuscular Hemoglobin 31.1 pg (28.0-33.3); Mean Corpuscular Volume 93.2 fL (83.0-100.0); Mean Platelet Volume 11.6 fL (9.4-12.4); Monocytes # 1.5 K/mcL (0.0-1.3); Monocytes % 13.5 %; Neutrophils # 7.6 K/mcL (1.6-8.9); Platelet Count 301 K/mcL (140-400); Red Blood Count 4.28 M/mcL (4.19-5.50); Red Cell Distribution Width 15.8 % (11.5-14.5); Segmented Neutrophils % 70.8 %; White Blood Count 10.8 K/mcL (4.3-11.1)
[2021-09-19 06:31] LABS: BUN/Creatinine Ratio 45 (6-26); Blood Urea Nitrogen 39 mg/dL (8-23); Calcium 9.2 mg/dL (8.6-10.3); Carbon Dioxide 36 mEq/L (23-29); Chloride 95 mEq/L (98-107); Glucose 101 mg/dL (70-105); Osmolality,Calculated 296 (280-300); Sodium 138 mEq/L (136-145); eGFR For African Americans > 60 (> 60); eGFR For Non-African Americans > 60 (> 60)
[2021-09-19] MEDS: Budesonide/Formoterol 160/4.5 1 PUFF INH IH SCH (07:31)
[2021-09-19 08:01] VITALS: BP 145/79; PULSE 101; TEMP 98.1
[2021-09-19] MEDS: Torsemide 20 MG TABLET PO SCH (08:27)
[2021-09-19] MEDS: Sennosides 8.6 MG TABLET PO SCH (08:27)
[2021-09-19] MEDS: Pyridoxine (B-6) 50 MG TABLET PO SCH (08:28)
[2021-09-19] MEDS: Cyanocobalamin (B-12) 1,000 MCG TABLET PO SCH (08:28)
[2021-09-19] MEDS: Spironolactone 25 MG TABLET PO SCH (08:28)
[2021-09-19] MEDS: Metoprolol XL (24 HR) Succ 50 MG TAB.ER.24H PO SCH (08:28)
[2021-09-19] MEDS: Magnesium Oxide 400 MG TABLET PO SCH (08:28)
[2021-09-19] MEDS: *HR* Rivaroxaban 10 MG TABLET PO SCH (08:28)
[2021-09-19] MEDS: *HR* Buprenorphine HCl 8 MG TAB.SUBL SL SCH (08:29)
[2021-09-19] MEDS: Famotidine 20 MG TABLET PO SCH (08:29)
[2021-09-19] MEDS: Gabapentin 400 MG CAPSULE PO SCH (08:29)
[2021-09-19] MEDS: Sacubitril/Valsartan 24/26 MG 1 TABLET PO SCH (08:29)
[2021-09-19] MEDS: MethylPREDNISolone 40 MG/ML VIAL IVP SCH (08:29)
[2021-09-19] MEDS: Insulin LISPRO 300 UNITS/3 ML VIAL SUBQ SCH (08:35)
[2021-09-19] MEDS ORDERED: Vancomycin 1,250 MG/262.5 ML IV.SOLN IVPB SCH (09:00)
[2021-09-19 10:24] VITALS: O2SAT 96
== END 2021-09-19 12:18 | disposition home or self-care (01) | DRG 871 ==
LOC: EMEROOARM 13:50 → 2NENU 13:50 → SUATTDRO 09-16 19:05
PROVIDERS: ADMIT Internal Medicine; ATTEND Hospitalist

== ENCOUNTER 2021-12-23 15:40 | Inpatient (IN) ==
[2021-12-23 16:57] LABS: Basophils % 0.1 %; Hematocrit 41.6 % (37.5-50.1); Hemoglobin 14.1 g/dL (12.9-16.9); Immature Granulocytes % 0.9 % (0-4); Lymphocytes # 1.1 K/mcL (0.6-4.6); Lymphocytes % 5.2 %; Mean Corpuscular HGB Conc 33.9 g/dL (31.6-35.5); Mean Corpuscular Hemoglobin 33.9 pg (28.0-33.3); Mean Platelet Volume 9.9 fL (9.4-12.4); Monocytes # 2.4 K/mcL (0.0-1.3); Monocytes % 11.1 %; Neutrophils # 17.6 K/mcL (1.6-8.9); Platelet Count 443 K/mcL (140-400); Red Blood Count 4.16 M/mcL (4.19-5.50); Red Cell Distribution Width 13.5 % (11.5-14.5); Segmented Neutrophils % 82.7 %; White Blood Count 21.3 K/mcL (4.3-11.1)
[2021-12-23 17:16] LABS: Alanine Aminotransferase 7 Units/L (7-52); Albumin 4.2 g/dL (3.5-5.7); Albumin/Globulin Ratio 1.6 (1.1-2.2); Alkaline Phosphatase 72 Units/L (34-104); Aspartate Amino Transferase 13 Units/L (13-39); BUN/Creatinine Ratio 28 (6-26); Bilirubin,Total 0.5 mg/dL (0.3-1.0); Blood Urea Nitrogen 32 mg/dL (8-23); Calcium 9.3 mg/dL (8.6-10.3); Carbon Dioxide 38 mEq/L (23-29); Chloride 92 mEq/L (98-107); Creatine Kinase 42 Units/L (30-223); Globulin 2.7 g/dL (2.4-3.5); Glucose 125 mg/dL (70-105); Osmolality,Calculated 288 (280-300); Potassium 4.5 mEq/L (3.5-5.1); Sodium 135 mEq/L (136-145); Total Protein 6.9 g/dL (6.4-8.9); eGFR For African Americans > 60 (> 60); eGFR For Non-African Americans > 60 (> 60)
[2021-12-23] MEDS ORDERED: Iopamidol - 370 500 ML MLS IVP ONE (17:19)
[2021-12-23] MEDS ORDERED: Cefepime HCl 2,000 MG in 0.9 % Sodium Chloride 10 ML IVP ONE (18:42)
[2021-12-23] MEDS ORDERED: Vancomycin 1,500 MG/265 ML IV.SOLN IVPB ONE (19:00)
[2021-12-23] MEDS ORDERED: 0.9 % Sodium Chloride 500 ML IV ONE (19:18)
[2021-12-23] MEDS ORDERED: Melatonin 3 MG TABLET PO PRN (21:29)
[2021-12-23] MEDS ORDERED: Acetaminophen 325 MG TABLET PO PRN (21:29)
[2021-12-23] MEDS ORDERED: Ondansetron 4 MG/2 ML VIAL IVP PRN (21:29)
[2021-12-23] MEDS ORDERED: Naloxone 0.4 MG/ML INJ IVP PRN (21:29)
[2021-12-23] MEDS ORDERED: 0.9 % Sodium Chloride 1,000 ML IVC SCH (21:30)
[2021-12-23] MEDS ORDERED: *HR* Dextrose 50 % in Water (Syg) 50 ML SYRINGE IVP PRN (21:33)
[2021-12-23] MEDS ORDERED: Dextrose Gel 15 GM/37.5 ML TUBE PO PRN ×2 (21:33)
[2021-12-23] MEDS ORDERED: D5% in Water 1,000 ML IVC PRN (21:33)
[2021-12-23] MEDS: Ipratropium/Albuterol Neb 3 ML IH PRN (22:16)
[2021-12-24] MEDS: Insulin LISPRO 300 UNITS/3 ML VIAL SUBQ SCH ×5 (02:24→20:03)
[2021-12-24] MEDS: Ipratropium/Albuterol Neb 3 ML IH PRN (04:35)
[2021-12-24] MEDS: Torsemide 20 MG TABLET PO SCH ×2 (05:13→18:18)
[2021-12-24] MEDS: Cefepime HCl 2,000 MG in 0.9 % Sodium Chloride 10 ML IVP SCH ×2 (05:14→18:27)
[2021-12-24 06:06] LABS: Basophils # 0.1 K/mcL (0.0-0.2); Basophils % 0.4 %; Eosinophils # 0.1 K/mcL (0.0-0.6); Eosinophils % 0.5 %; Hematocrit 39.1 % (37.5-50.1); Hemoglobin 12.7 g/dL (12.9-16.9); Immature Granulocytes % 0.5 % (0-4); Lymphocytes # 1.8 K/mcL (0.6-4.6); Lymphocytes % 10.8 %; Mean Corpuscular HGB Conc 32.5 g/dL (31.6-35.5); Mean Corpuscular Hemoglobin 32.9 pg (28.0-33.3); Mean Corpuscular Volume 101.3 fL (83.0-100.0); Mean Platelet Volume 10.1 fL (9.4-12.4); Monocytes # 3.3 K/mcL (0.0-1.3); Monocytes % 19.4 %; Neutrophils # 11.6 K/mcL (1.6-8.9); Platelet Count 410 K/mcL (140-400); Red Blood Count 3.86 M/mcL (4.19-5.50); Red Cell Distribution Width 13.7 % (11.5-14.5); Segmented Neutrophils % 68.4 %
[2021-12-24 06:13] LABS: INR 1.4; Prothrombin Time 15.2 Seconds (9.4-12.1)
[2021-12-24 06:15] LABS: Activated Partial Thrombo Time 37.4 Seconds (26.0-36.0)
[2021-12-24 06:27] LABS: Alanine Aminotransferase 4 Units/L (7-52); Albumin 3.7 g/dL (3.5-5.7); Albumin/Globulin Ratio 1.4 (1.1-2.2); Alkaline Phosphatase 62 Units/L (34-104); Aspartate Amino Transferase 11 Units/L (13-39); BUN/Creatinine Ratio 24 (6-26); Bilirubin,Total 0.6 mg/dL (0.3-1.0); Blood Urea Nitrogen 23 mg/dL (8-23); Calcium 8.9 mg/dL (8.6-10.3); Carbon Dioxide 36 mEq/L (23-29); Chloride 96 mEq/L (98-107); Globulin 2.6 g/dL (2.4-3.5); Glucose 123 mg/dL (70-105); Magnesium 2.1 mg/dL (1.6-2.6); Osmolality,Calculated 293 (280-300); Potassium 3.7 mEq/L (3.5-5.1); Sodium 139 mEq/L (136-145); Total Protein 6.3 g/dL (6.4-8.9); Troponin I < 0.03 ng/mL (< 0.04); eGFR For African Americans > 60 (> 60); eGFR For Non-African Americans > 60 (> 60)
[2021-12-24 06:42] LABS: Platelet Estimate Normal (Normal)
[2021-12-24] MEDS: Spironolactone 25 MG TABLET PO SCH (07:49)
[2021-12-24] MEDS ORDERED: *HR* Rivaroxaban 10 MG TABLET PO SCH (09:00)
[2021-12-24] MEDS ORDERED: *HR* Metoprolol 5 MG/5 ML VIAL IVP ONE ×2 (11:07→17:29)
[2021-12-24] MEDS: Metoprolol XL (24 HR) Succ 50 MG TAB.ER.24H PO SCH ×2 (12:55→20:21)
[2021-12-24] MEDS ORDERED: Albuterol 2.5 MG/3 ML NEBULIZER IH PRN (16:32)
[2021-12-24] MEDS: Sacubitril/Valsartan 24/26 MG 1 TABLET PO SCH (20:21)
[2021-12-24] MEDS: *HR* Buprenorphine HCl 2 MG SUBLINGUAL TABLET SL SCH (20:21)
[2021-12-25] MEDS: *HR* Buprenorphine HCl 2 MG SUBLINGUAL TABLET SL SCH ×6 (03:06→23:59)
[2021-12-25] MEDS: Ipratropium/Albuterol Neb 3 ML IH PRN (04:01)
[2021-12-25] MEDS: Cefepime HCl 2,000 MG in 0.9 % Sodium Chloride 10 ML IVP SCH (06:13)
[2021-12-25] MEDS: Insulin LISPRO 300 UNITS/3 ML VIAL SUBQ SCH ×4 (08:00→20:04)
[2021-12-25] MEDS: Spironolactone 25 MG TABLET PO SCH (08:03)
[2021-12-25] MEDS: Metoprolol XL (24 HR) Succ 50 MG TAB.ER.24H PO SCH ×2 (08:03→20:04)
[2021-12-25] MEDS: Sacubitril/Valsartan 24/26 MG 1 TABLET PO SCH ×2 (08:03→20:04)
[2021-12-25] MEDS: Sennosides 8.6 MG TABLET PO SCH (08:04)
[2021-12-25] MEDS: Torsemide 20 MG TABLET PO SCH (08:04)
[2021-12-25 10:47] LABS: Basophils # 0.1 K/mcL (0.0-0.2); Basophils % 0.3 %; Eosinophils % 0.2 %; Hematocrit 38.8 % (37.5-50.1); Hemoglobin 12.9 g/dL (12.9-16.9); Immature Granulocytes % 0.5 % (0-4); Lymphocytes % 4.9 %; Mean Corpuscular HGB Conc 33.2 g/dL (31.6-35.5); Mean Corpuscular Hemoglobin 33.6 pg (28.0-33.3); Mean Platelet Volume 10.1 fL (9.4-12.4); Monocytes # 2.2 K/mcL (0.0-1.3); Monocytes % 10.9 %; Neutrophils # 16.6 K/mcL (1.6-8.9); Platelet Count 380 K/mcL (140-400); Red Blood Count 3.84 M/mcL (4.19-5.50); Red Cell Distribution Width 13.5 % (11.5-14.5); Segmented Neutrophils % 83.2 %
[2021-12-25 11:06] LABS: BUN/Creatinine Ratio 23 (6-26); Blood Urea Nitrogen 22 mg/dL (8-23); Calcium 8.9 mg/dL (8.6-10.3); Carbon Dioxide 39 mEq/L (23-29); Chloride 88 mEq/L (98-107); Glucose 188 mg/dL (70-105); Magnesium 1.8 mg/dL (1.6-2.6); Osmolality,Calculated 284 (280-300); Potassium 3.6 mEq/L (3.5-5.1); Sodium 133 mEq/L (136-145); eGFR For African Americans > 60 (> 60); eGFR For Non-African Americans > 60 (> 60)
[2021-12-25] MEDS ORDERED: 0.9 % Sodium Chloride 1,000 ML IVC SCH (12:30)
[2021-12-25] MEDS: Piperacillin/Tazobactam 3.375 GM in 0.9 % Sodium Chloride Mini Bag 100 ML IVPB SCH ×2 (15:20→23:58)
[2021-12-25] MEDS: *HR* Rivaroxaban 10 MG TABLET PO SCH (16:47)
[2021-12-26 05:59] LABS: Basophils % 0.3 %; Eosinophils # 0.1 K/mcL (0.0-0.6); Eosinophils % 1.6 %; Hematocrit 35.2 % (37.5-50.1); Hemoglobin 11.7 g/dL (12.9-16.9); Immature Granulocytes % 0.4 % (0-4); Lymphocytes # 1.7 K/mcL (0.6-4.6); Lymphocytes % 18.7 %; Mean Corpuscular HGB Conc 33.2 g/dL (31.6-35.5); Mean Corpuscular Hemoglobin 33.8 pg (28.0-33.3); Mean Corpuscular Volume 101.7 fL (83.0-100.0); Mean Platelet Volume 10.2 fL (9.4-12.4); Monocytes # 0.7 K/mcL (0.0-1.3); Monocytes % 7.6 %; Neutrophils # 6.4 K/mcL (1.6-8.9); Platelet Count 193 K/mcL (140-400); Red Blood Count 3.46 M/mcL (4.19-5.50); Red Cell Distribution Width 12.9 % (11.5-14.5); Segmented Neutrophils % 71.4 %
[2021-12-26 06:07] LABS: Potassium 4.5 mEq/L (3.5-5.1)
[2021-12-26 06:08] LABS: BUN/Creatinine Ratio 15 (6-26); Blood Urea Nitrogen 19 mg/dL (8-23); Calcium 7.9 mg/dL (8.6-10.3); Carbon Dioxide 23 mEq/L (23-29); Chloride 109 mEq/L (98-107); Glucose 100 mg/dL (70-105); Magnesium 1.8 mg/dL (1.6-2.6); Osmolality,Calculated 284 (280-300); Phosphorous 2.9 mg/dL (2.7-4.5); Sodium 136 mEq/L (136-145); eGFR For African Americans > 60 (> 60); eGFR For Non-African Americans 58 (> 60)
[2021-12-26] MEDS: Insulin LISPRO 300 UNITS/3 ML VIAL SUBQ SCH ×4 (07:38→21:24)
[2021-12-26] MEDS: Ipratropium/Albuterol Neb 3 ML IH PRN ×2 (08:20→22:20)
[2021-12-26] MEDS: Spironolactone 25 MG TABLET PO SCH (08:52)
[2021-12-26] MEDS: Sacubitril/Valsartan 24/26 MG 1 TABLET PO SCH ×2 (08:52→21:05)
[2021-12-26] MEDS: Metoprolol XL (24 HR) Succ 50 MG TAB.ER.24H PO SCH (08:52)
[2021-12-26] MEDS: Sennosides 8.6 MG TABLET PO SCH (08:52)
[2021-12-26] MEDS: *HR* Buprenorphine HCl 2 MG SUBLINGUAL TABLET SL SCH ×4 (08:53→21:05)
[2021-12-26] MEDS: Piperacillin/Tazobactam 3.375 GM in 0.9 % Sodium Chloride Mini Bag 100 ML IVPB SCH ×2 (09:01→17:30)
[2021-12-26] MEDS ORDERED: Ketorolac 30 MG/ML VIAL IVP ONE (09:23)
[2021-12-26] MEDS: Gabapentin 400 MG CAPSULE PO SCH ×2 (15:11→21:06)
[2021-12-26] MEDS: DilTIAZem 50 MG/50 ML IV.SOLN IVC SCH (17:27)
[2021-12-26] MEDS: *HR* Rivaroxaban 10 MG TABLET PO SCH (17:28)
[2021-12-26] MEDS ORDERED: Metoprolol XL (24 HR) Succ 50 MG TAB.ER.24H PO SCH (21:00)
[2021-12-26] MEDS: Budesonide/Formoterol 80/4.5 1 PUFF INH IH SCH (22:16)
[2021-12-27] MEDS: Piperacillin/Tazobactam 3.375 GM in 0.9 % Sodium Chloride Mini Bag 100 ML IVPB SCH ×3 (00:58→16:14)
[2021-12-27] MEDS: *HR* Buprenorphine HCl 2 MG SUBLINGUAL TABLET SL SCH ×5 (00:58→20:12)
[2021-12-27] MEDS: Budesonide/Formoterol 80/4.5 1 PUFF INH IH SCH ×2 (07:40→20:59)
[2021-12-27] MEDS: Ipratropium/Albuterol Neb 3 ML IH PRN ×2 (07:40→20:58)
[2021-12-27 07:49] LABS: BUN/Creatinine Ratio 26 (6-26); Blood Urea Nitrogen 24 mg/dL (8-23); Calcium 8.7 mg/dL (8.6-10.3); Carbon Dioxide 34 mEq/L (23-29); Chloride 96 mEq/L (98-107); Glucose 79 mg/dL (70-105); Magnesium 2.3 mg/dL (1.6-2.6); Osmolality,Calculated 287 (280-300); Phosphorous 3.8 mg/dL (2.7-4.5); Sodium 137 mEq/L (136-145); eGFR For African Americans > 60 (> 60); eGFR For Non-African Americans > 60 (> 60)
[2021-12-27] MEDS: Insulin LISPRO 300 UNITS/3 ML VIAL SUBQ SCH ×4 (07:51→21:12)
[2021-12-27] MEDS: Sacubitril/Valsartan 24/26 MG 1 TABLET PO SCH ×2 (08:11→20:12)
[2021-12-27] MEDS: Sennosides 8.6 MG TABLET PO SCH (08:11)
[2021-12-27] MEDS: Spironolactone 25 MG TABLET PO SCH (08:11)
[2021-12-27] MEDS: Gabapentin 400 MG CAPSULE PO SCH ×3 (08:11→20:12)
[2021-12-27] MEDS: Metoprolol XL (24 HR) Succ 50 MG TAB.ER.24H PO SCH ×2 (08:12→20:12)
[2021-12-27] MEDS: Vancomycin 1,250 MG/262.5 ML IV.SOLN IVPB SCH (08:15)
[2021-12-27] MEDS: DilTIAZem 50 MG/50 ML IV.SOLN IVC SCH (12:42)
[2021-12-27] MEDS ORDERED: Metoprolol XL (24 HR) Succ 50 MG TAB.ER.24H PO SCH (12:47)
[2021-12-27] MEDS: *HR* Rivaroxaban 10 MG TABLET PO SCH (17:08)
[2021-12-28] MEDS: Piperacillin/Tazobactam 3.375 GM in 0.9 % Sodium Chloride Mini Bag 100 ML IVPB SCH ×2 (00:05→07:53)
[2021-12-28] MEDS: *HR* Buprenorphine HCl 2 MG SUBLINGUAL TABLET SL SCH ×3 (00:06→11:04)
[2021-12-28 07:41] VITALS: BP 133/82; PULSE 91; TEMP 98.4
[2021-12-28] MEDS: Sennosides 8.6 MG TABLET PO SCH (07:48)
[2021-12-28] MEDS: Gabapentin 400 MG CAPSULE PO SCH ×2 (07:52→14:14)
[2021-12-28] MEDS: Sacubitril/Valsartan 24/26 MG 1 TABLET PO SCH (07:53)
[2021-12-28] MEDS: Metoprolol XL (24 HR) Succ 50 MG TAB.ER.24H PO SCH (07:53)
[2021-12-28] MEDS: Spironolactone 25 MG TABLET PO SCH (07:53)
[2021-12-28] MEDS: Insulin LISPRO 300 UNITS/3 ML VIAL SUBQ SCH ×2 (07:54→10:51)
[2021-12-28] MEDS: Vancomycin 1,250 MG/262.5 ML IV.SOLN IVPB SCH (07:54)
[2021-12-28] MEDS: Ipratropium/Albuterol Neb 3 ML IH PRN (08:02)
[2021-12-28] MEDS: Budesonide/Formoterol 80/4.5 1 PUFF INH IH SCH (08:02)
[2021-12-28] MEDS ORDERED: DilTIAZem CD (24hr) 120 MG CAP.ER.24H PO SCH (09:00)
[2021-12-28 11:55] VITALS: O2SAT 96
[2021-12-28] MEDS: *HR* Rivaroxaban 10 MG TABLET PO SCH (14:14)
== END 2021-12-28 14:19 | disposition home or self-care (01) | DRG 872 ==
LOC: 4WAOSI 15:40 → EMEROOARM 15:40 → SUATTDRO 20:19 → 4WAOSI 21:06 → 3BNU 12-24 18:02
PROVIDERS: ADMIT Internal Medicine; ATTEND Internal Medicine